=== PATIENT | male | born 1940 | race African-American/Black ===

== ENCOUNTER 2017-02-23 11:02 | Inpatient (IN) | payer MEDICARE ==
[~2017-02-23] VITALS: Ht 180.3 cm; Wt 84.8 kg
[~2017-02-23 11:02] MED LIST: AMLO5TAB2 PO; ASPI81TA50 PO; FLUO20CA8 PO; HYDR-2762 PO; LOSA50TA6 PO; METF500T4 PO; MULT-658 PO; OMEG1CAP28 PO; SIMV10TA3 PO; TAMS0.4C2 PO
--- NOTE | 2017-02-23 12:48 | RAD ---
Examination: Frontal view the chest History: shortness of breath. Comparison: 10/15/2005 Findings: The cardiomediastinal silhouette grossly appears unremarkable. Irregular airspace opacity identified in the left hilar region could be mass or scarring. Old right fifth rib resection again similar to prior exam. Impression: 1. Irregular airspace opacity identified in the left hilar region could be mass or scarring.
--- NOTE | 2017-02-23 12:58 | EKG ---
[facility] [address] [place] [address] Test Date: 2017-02-23 Test Time: 12:22:50 Pat Name: KELLY KEARNEY Department: Room: Gender: M Lumber Straightened: : 1940 Requested By: EPI SOTELO Order Number: [id number] Reading MD: Demar Kaur Measurements Intervals [place] Rate: 92 P: -27 TN: 66 QRS: 147 QRSD: 100 T: 150 QT: 402 QTc: 503 Interpretive Statements SINUS RHYTHM LOW LIMB LEAD VOLTAGE CONSIDER RIGHT VENTRICULAR HYPERTROPHY QRS(T) CONTOUR ABNORMALITY CONSIDER INFERIOR MYOCARDIAL DAMAGE T ABNORMALITY IN ANTERIOR LEADS PROLONGED QT RI6.01 Unconfirmed report No previous ECG available for comparison Electronically Signed On 03-06-2017 12:16:39 CDT by Demar Kaur
[2017-02-23 12:59] LABS: BASO % 0 % (0-3); EOS % 0 % (0-3); HEMATOCRIT 34.2 % (39.0-53.0); HEMOGLOBIN 11.1 g/dL (13.0-17.5); LYMPH # 0.3 x10^3/uL (1.0-4.8); LYMPH % 3 % (24-48); MEAN CORPUSCULAR HEMOGLOBIN 26 pg (25-35); MEAN CORPUSCULAR HGB CONC 33 g/dL (31-37); MEAN CORPUSCULAR VOLUME 81 fL (79-100); MONO % 3 % (0-9); NEUT % 94 % (31-73); PLATELET COUNT 206 x10^3/uL (140-400); RED BLOOD COUNT 4.23 x10^6/uL (4.30-5.70); RED CELL DISTRIBUTION WIDTH 17.7 % (11.5-14.5); WHITE BLOOD COUNT 8.1 x10^3/uL (4.0-11.0)
--- NOTE | 2017-02-23 13:04 | RAD ---
CT head without contrast History: Altered mental status. Comparison: 12/19/2011. Procedure: Axial images are obtained of the head from the skull base through the vertex without IV contrast. Findings: Moderate bilateral periventricular white matter hypodensities likely chronic small vessel ischemic disease. There is a calcified density identified in the right frontotemporal region grossly similar to prior exam measuring 1.8 cm likely a meningioma. The ventricles and sulci are normal for the patient's age. No midline shift, hemorrhage or obvious acute infarction is identified. Basilar cisterns are patent. . The visualized paranasal sinuses appear clear. Impression: 1. No acute intracranial process. 2. Unchanged calcified density in the right frontoparietal region likely known meningioma. PQRS Compliance Statement: One or more of the following individualized dose reduction techniques were utilized for this examination: 1. Automated exposure control 2. Adjustment of the mA and/or kV according to patient size 3. Use of iterative reconstruction technique
[2017-02-23 13:08] LABS: CALCIUM 8.5 mg/dL (8.5-10.1); CREATININE 1.1 mg/dL (0.7-1.3); GFR 78.5; POTASSIUM 4.3 mmol/L (3.5-5.1)
[2017-02-23 13:14] LABS: ALBUMIN 2.6 g/dL (3.4-5.0); ALBUMIN/GLOBULIN RATIO 0.7 (1.0-1.7); TOTAL BILIRUBIN 0.8 mg/dL (0.2-1.0); TOTAL PROTEIN 6.3 g/dL (6.4-8.2)
[2017-02-23 13:30] LABS: HCO3 ABG 20 mmol/L (21-28); PCO2 ABG 29 mmHg (35-46); PH ABG 7.46 (7.35-7.45); SAT O2 ABG 84 % (92-99)
[2017-02-23 13:30] LABS: % EOS 1 % (0-5)
[2017-02-23 13:31] LABS: ANISOCYTOSIS SLIGHT; PLT ESTIMATE ADEQUATE (ADEQUATE); POIKILOCYTOSIS SLIGHT
[2017-02-23 13:32] LABS: BURR CELLS FEW; SCHISTOCYTES FEW
[2017-02-23 13:36] LABS: FIO2 ABG 21; PO2 ABG 49 mmHg (65-108)
[2017-02-23] MEDS ORDERED: IPRATRPIUM/ALBUTEROL 0.5/2.5MG 3 ML NEBU. NEB ONE (15:15)
--- NOTE | 2017-02-23 15:29 | PHYS DOC ---
Past Medical History Past Medical History: Cancer, Depression, Diabetes-Type II, GERD, High Cholesterol, Hypertension, Kidney Infection, Other Additional Past Medical Histor: LUNG & BRAIN CANCER TREATED W/ RADIATION & CHEMO Past Surgical History: Other Additional Past Surgical Histo: RIGHT RIB REMOVED Alcohol Use: None Drug Use: None Adult General Chief Complaint Chief Complaint: SHORTNESS OF BREATH HPI HPI Patient is a 76 year old AA male has known patient with lung cancer and brain metastatic disease, hypertension, adult-onset diabetes who presents with progressive shortness of breath over the past 2 days. Patient denies cough, fever, chills, nausea vomiting and sweats. Denies chest pain, recent leg pain or swelling. Reports orthopnea and paroxysmal nocturnal dyspnea. Patient does not require home oxygen. No other acute symptoms or complaints. Denies history of CAD or congestive heart failure. Review of Systems Review of Systems Review symptoms as per history of present illness. All other review symptoms are negative. Current Medications Current Medications Current Medications Medications (Trade) Dose Ordered Sig/Fanny Start Time Stop Time Status Last Admin Dose Admin Albuterol/ Ipratropium (Duoneb) 3 ml 1X ONCE 02/23/17 15:15 02/23/17 15:16 DC 02/23/17 15:58 3 ML Allergies Allergies Allergies Coded Allergies Type Severity Reaction Last Updated Verified codeine Allergy Intermediate RASH, ITCH 05/10/15 Yes Physical Exam Physical Exam Constitutional: Well developed, well nourished, tachypnea, conversational dyspnea.. [] HENT: Normocephalic, atraumatic, bilateral external ears normal, oropharynx moist, edentulous, nose normal. [] Eyes: PERRLA, EOMI, conjunctiva normal. [] Neck: Normal range of motion. [] Cardiovascular:Heart rate regular rhythm, no murmur. [] Lungs & Thorax: Diminished breath sounds bilaterally, rales in bases.[] Abdomen: Bowel sounds normal, soft, no tenderness, no masses, no pulsatile masses. [] Skin: Warm, dry, no erythema, no rash. [] Back: No tenderness, no CVA tenderness. [] Extremities: No tenderness, no cyanosis, no clubbing, ROM intact, no edema. [] Neurologic: Alert and oriented, slurring of speech, cranial nerves otherwise intact, normal motor function, normal sensory function, no focal deficits noted. [] Psychologic: Affect flat. [] Current Patient Data Vital Signs Vital Signs Date Time Temp Pulse Resp B/P (MAP) Pulse Ox O2 Delivery O2 Flow Rate FiO2 02/23/17 13:30 Nasal Cannula 2.0 02/23/17 13:16 91 02/23/17 12:45 93 24 121/76 (91) 02/23/17 11:05 97.7 97.7 Lab Values Laboratory Tests Test 02/23/17 12:45 02/23/17 13:16 White Blood Count 8.1 x10^3/uL (4.0-11.0) Red Blood Count 4.23 x10^6/uL (4.30-5.70) L Hemoglobin 11.1 g/dL (13.0-17.5) L Hematocrit 34.2 % (39.0-53.0) L Mean Corpuscular Volume 81 fL (79-100) Mean Corpuscular Hemoglobin 26 pg (25-35) Mean Corpuscular Hemoglobin Concent 33 g/dL (31-37) Red Cell Distribution Width 17.7 % (11.5-14.5) H Platelet Count 206 x10^3/uL (140-400) Neutrophils (%) (Auto) 94 % (31-73) H Lymphocytes (%) (Auto) 3 % (24-48) L Monocytes (%) (Auto) 3 % (0-9) Eosinophils (%) (Auto) 0 % (0-3) Basophils (%) (Auto) 0 % (0-3) Neutrophils # (Auto) 7.5 x10^3uL (1.8-7.7) Lymphocytes # (Auto) 0.3 x10^3/uL (1.0-4.8) L Monocytes # (Auto) 0.2 x10^3/uL (0.0-1.1) Eosinophils # (Auto) 0.0 x10^3/uL (0.0-0.7) Basophils # (Auto) 0.0 x10^3/uL (0.0-0.2) Segmented Neutrophils % 81 % (35-66) H Band Neutrophils % 8 % (0-9) Lymphocytes % 7 % (24-48) L Monocytes % 3 % (0-10) Eosinophils % 1 % (0-5) Platelet Estimate Adequate (ADEQUATE) Poikilocytosis Slight Anisocytosis Slight [place] Cells Few Schistocytes Few Sodium Level 137 mmol/L (136-145) Potassium Level 4.3 mmol/L (3.5-5.1) Chloride Level 102 mmol/L (98-107) Carbon Dioxide Level 20 mmol/L (21-32) L Anion Gap 15 (6-14) H Blood Urea Nitrogen 22 mg/dL (8-26) Creatinine 1.1 mg/dL (0.7-1.3) Estimated GFR (Cockcroft-Gault) 78.5 BUN/Creatinine Ratio 20 (6-20) Glucose Level 112 mg/dL (70-99) H Calcium Level 8.5 mg/dL (8.5-10.1) Total Bilirubin 0.8 mg/dL (0.2-1.0) Aspartate Amino Transferase (AST) 19 U/L (15-37) Alanine Aminotransferase (ALT) 24 U/L (16-63) Alkaline Phosphatase 91 U/L (46-116) Creatine Kinase 102 U/L (39-308) Troponin I Quantitative 0.371 ng/mL (0.000-0.055) KC-Sij-K-Type Natriuretic Peptide 7976 pg/mL (0-449) H Total Protein 6.3 g/dL (6.4-8.2) L Albumin 2.6 g/dL (3.4-5.0) L Albumin/Globulin Ratio 0.7 (1.0-1.7) L O2 Saturation 84 % (92-99) L Arterial Blood pH 7.46 (7.35-7.45) H Arterial Blood pCO2 at Patient Temp 29 mmHg (35-46) L Arterial Blood pO2 at Patient Temp 49 mmHg (65-108) *L Arterial Blood HCO3 20 mmol/L (21-28) L Arterial Blood Base Excess -2 mmol/L (-3-3) FiO2 21 Laboratory Tests 02/23/17 12:45 Laboratory Tests 02/23/17 12:45 EKG EKG [EKG: Sinus rhythm, rate 92, ST changes T-wave inversions in in anterior leads. No definitive ST segment elevation changes. Right ventricular hypertrophy, Limited interpretation due to EKG quality last poor patient cooperation.] Radiology/Procedures Radiology/Procedures [Chest x-ray left lung mass, increased interstitial lung markings.] Course & Med Decision Making Course & Med Decision Making Pertinent Labs and Imaging studies reviewed. (See chart for details) [Patient short of breath with evidence of hypoxia, secondary to fluid overload. Patient with EKG changes, T-wave inversions in anterior leads and positive troponin. Patient denies chest pain. BNP significantly elevated. O2, Breathing treatment, NTG drip and ASA given. Patient placed on BiPAP. Dr. Ibrahim to admit ,. Case reviewed with Dr. Valderrama ] Dragon Disclaimer Dragon Disclaimer This electronic medical record was generated, in whole or in part, using a voice recognition dictation system. Departure Departure Impression: Primary Impression: CHF (congestive heart failure) Additional Impression: Non-STEMI (non-ST elevated myocardial infarction) Disposition: 09 ADMITTED INPATIENT Admitting Physician: Lance Ibrahim Condition: STABLE Referrals: LANCE IBRAHIM MD (PCP) Problem Qualifiers ASHLEIGHEPI JACOBSON Feb 23, 2017 15:29
[2017-02-23] MEDS ORDERED: ONDANSETRON PF 4 MG/2 ML VIAL. IV PRN ×2 (15:45→17:15)
[2017-02-23] MEDS ORDERED: NITROGLYCERIN PREMIX 250 ML IV ONE (17:00)
[2017-02-23] MEDS ORDERED: ASPIRIN CHEWABLE 81 MG TABLET. PO ONE (17:00)
[2017-02-23] MEDS: FUROSEMIDE 40 MG/4 ML VIAL. IVP ONE ×2 (17:40→17:52)
[2017-02-23] MEDS ORDERED: IV NORMAL SALINE 1000ML BAG 1,000 ML IV SCH (18:00)
[2017-02-23 18:48] VITALS: BP 112/70
[2017-02-23 19:00] VITALS: BP 111/57
[2017-02-23] MEDS ORDERED: ONDA4TAB7 PO (20:48)
[2017-02-23] MEDS ORDERED: FLUO20CA16 PO (20:48)
[2017-02-23] MEDS ORDERED: FAMO20TA5 PO (20:48)
[2017-02-23] MEDS ORDERED: METF500T4 PO (20:48)
[2017-02-23] MEDS ORDERED: DEXA4TAB PO (20:48)
[2017-02-23] MEDS ORDERED: LEVE500T56 PO (20:48)
[2017-02-23] MEDS ORDERED: DEXTROSE 50% 25 GM / 50ML DISP.SYRIN. IV PRN (21:15)
[2017-02-23] MEDS ORDERED: HYDROcodone/APAP 7.5/325MG 1 TAB TABLET PO PRN (21:15)
[2017-02-23] MEDS: FAMOTIDINE 20 MG TABLET. PO SCH (22:10)
[2017-02-23] MEDS: levETIRAcetam 500 MG TABLET PO SCH (22:10)
[2017-02-23 23:00] VITALS: BP 102/61
[2017-02-24 03:00] VITALS: BP 96/56
[2017-02-24 04:53] LABS: BASO % 0 % (0-3); EOS % 0 % (0-3); HEMATOCRIT 32.6 % (39.0-53.0); HEMOGLOBIN 10.6 g/dL (13.0-17.5); LYMPH # 0.8 x10^3/uL (1.0-4.8); LYMPH % 10 % (24-48); MEAN CORPUSCULAR HEMOGLOBIN 26 pg (25-35); MEAN CORPUSCULAR HGB CONC 32 g/dL (31-37); MEAN CORPUSCULAR VOLUME 81 fL (79-100); MONO % 6 % (0-9); NEUT % 84 % (31-73); PLATELET COUNT 225 x10^3/uL (140-400); WHITE BLOOD COUNT 7.8 x10^3/uL (4.0-11.0)
[2017-02-24 05:12] LABS: ALBUMIN 2.3 g/dL (3.4-5.0); ALBUMIN/GLOBULIN RATIO 0.5 (1.0-1.7); CALCIUM 8.9 mg/dL (8.5-10.1); CREATININE 1.6 mg/dL (0.7-1.3); POTASSIUM 4.6 mmol/L (3.5-5.1); TOTAL BILIRUBIN 0.5 mg/dL (0.2-1.0); TOTAL PROTEIN 6.8 g/dL (6.4-8.2)
[2017-02-24 05:14] LABS: MAGNESIUM 2.3 mg/dL (1.8-2.4)
[2017-02-24 05:15] LABS: CHOLESTEROL/HDL RATIO 2.4
[2017-02-24 07:00] VITALS: BP 102/63
[2017-02-24] MEDS: FUROSEMIDE 40 MG/4 ML VIAL. IVP SCH ×2 (09:00→13:12)
[2017-02-24 11:00] VITALS: BP 130/76
--- NOTE | 2017-02-24 12:45 | PDOC2 ---
GHISLAINE CASTILLO HAND TUBE BENDER 02/24/17 1245: CARDIAC CONSULT DATE OF CONSULT Date of Consult DATE: 02/24/17 TIME: 12:36 REASON FOR CONSULT Reason for Consult: CHF NSTEMI REFERRING PHYSICIAN Referring Physician: Dr. De La Vega SOURCE Source: Chart review, Patient HISTORY OF PRESENT ILLNESS HISTORY OF PRESENT ILLNESS This is a 76 yo male, with a h/o of lung CA with metastasis to the brain, who presented from [facility] with complaints of shortness of breath. Patient unable to provide details of admission. Per chart review, patient has had progressive SOA over the last couple of days. Denies any chest pain, palpitations, dizziness, diaphoresis, nausea/vomiting, or LE edema. Presently denies any difficulty breathing or orthopnea. No previous history of CAD or known prior cardiac workup. PAST MEDICAL HISTORY Cardiovascular: HTN Pulmonary: Other (lung CA with metastasis to brain ) GI: GERD Heme/Onc: No pertinent hx Hepatobiliary: No pertinent hx Psych: Depression Musculoskeletal: low back pain, Osteoarthritis Rheumatologic: No pertinent hx Infectious disease: No pertinent hx ENT: No pertinent hx Renal/: Chronic renal failure (on HD), Benign prostatic enlarg. Endocrine: Diabetes Dermatology: No pertinent hx PAST SURGICAL HISTORY Past Surgical History: Other (right shoulder surgery) FAMILY HISTORY Family History: Hypertension SOCIAL HISTORY Smoke: Quit (2004) ALCOHOL: none Drugs: None [place]: [place] CURRENT MEDICATIONS CURRENT MEDICATIONS Current Medications Medications (Trade) Dose Ordered Sig/Fanny Route PRN Reason Start Time Stop Time Status Last Admin Dose Admin Albuterol/ Ipratropium (Duoneb) 3 ml 1X ONCE NEB 02/23/17 15:15 02/23/17 15:16 DC 02/23/17 15:58 Furosemide (Lasix) 40 mg 1X ONCE IVP 02/23/17 17:00 02/23/17 17:01 DC 02/23/17 17:52 Aspirin (Children'S Aspirin) 324 mg 1X ONCE PO 02/23/17 17:00 02/23/17 17:01 DC 02/23/17 17:41 Famotidine (Pepcid) 20 mg BID PO 02/23/17 22:00 02/23/17 22:10 Levetiracetam (Keppra) 750 mg BID PO 02/23/17 21:00 02/23/17 22:10 ALLERGIES ALLERGIES: Coded Allergies: codeine (Verified Allergy, Intermediate, RASH, ITCH, 05/10/15) ROS Review of System 14 point ROS conducted with pertinent positives noted above in HPI. PHYSICAL EXAM General: Alert, Oriented X3, Cooperative, No acute distress HEENT: Atraumatic, Mucous membr. moist/pink Lungs: Other (diminished bases ) Heart: Regular rate, Normal S1, Normal S2, Other (2/6 systolic murmur ) Abdomen: Soft, No tenderness Extremities: No edema, Normal pulses Skin: No breakdown, No significant lesion Neuro: Normal speech, Sensation intact Psych/Mental Status: Mood NL, Other (alert to person and place ) MUSCULOSKELETAL: Osteoarthritic changes both hands VITALS VITALS Vital Signs Date Time Temp Pulse Resp B/P (MAP) Pulse Ox O2 Delivery O2 Flow Rate FiO2 02/24/17 11:00 94.0 78 18 130/76 (94) 94 Room Air 94.0 02/24/17 07:00 2.0 LABS Lab: Laboratory Tests Test 02/23/17 12:45 02/23/17 13:16 02/23/17 15:40 02/23/17 18:46 White Blood Count 8.1 x10^3/uL (4.0-11.0) Red Blood Count 4.23 x10^6/uL (4.30-5.70) Hemoglobin 11.1 g/dL (13.0-17.5) Hematocrit 34.2 % (39.0-53.0) Mean Corpuscular Volume 81 fL (79-100) Mean Corpuscular Hemoglobin 26 pg (25-35) Mean Corpuscular Hemoglobin Concent 33 g/dL (31-37) Red Cell Distribution Width 17.7 % (11.5-14.5) Platelet Count 206 x10^3/uL (140-400) Neutrophils (%) (Auto) 94 % (31-73) Lymphocytes (%) (Auto) 3 % (24-48) Monocytes (%) (Auto) 3 % (0-9) Eosinophils (%) (Auto) 0 % (0-3) Basophils (%) (Auto) 0 % (0-3) Neutrophils # (Auto) 7.5 x10^3uL (1.8-7.7) Lymphocytes # (Auto) 0.3 x10^3/uL (1.0-4.8) Monocytes # (Auto) 0.2 x10^3/uL (0.0-1.1) Eosinophils # (Auto) 0.0 x10^3/uL (0.0-0.7) Basophils # (Auto) 0.0 x10^3/uL (0.0-0.2) Segmented Neutrophils % 81 % (35-66) Band Neutrophils % 8 % (0-9) Lymphocytes % 7 % (24-48) Monocytes % 3 % (0-10) Eosinophils % 1 % (0-5) Platelet Estimate Adequate (ADEQUATE) Poikilocytosis Slight Anisocytosis Slight [place] Cells Few Schistocytes Few Sodium Level 137 mmol/L (136-145) Potassium Level 4.3 mmol/L (3.5-5.1) Chloride Level 102 mmol/L (98-107) Carbon Dioxide Level 20 mmol/L (21-32) Anion Gap 15 (6-14) Blood Urea Nitrogen 22 mg/dL (8-26) Creatinine 1.1 mg/dL (0.7-1.3) Estimated GFR (Cockcroft-Gault) 78.5 BUN/Creatinine Ratio 20 (6-20) Glucose Level 112 mg/dL (70-99) Calcium Level 8.5 mg/dL (8.5-10.1) Total Bilirubin 0.8 mg/dL (0.2-1.0) Aspartate Amino Transf (AST/SGOT) 19 U/L (15-37) Alanine Aminotransferase (ALT/SGPT) 24 U/L (16-63) Alkaline Phosphatase 91 U/L (46-116) Creatine Kinase 102 U/L (39-308) Troponin I Quantitative 0.371 ng/mL (0.000-0.055) 0.265 ng/mL (0.000-0.055) PT-Ocl-P-Type Natriuretic Peptide 7976 pg/mL (0-449) Total Protein 6.3 g/dL (6.4-8.2) Albumin 2.6 g/dL (3.4-5.0) Albumin/Globulin Ratio 0.7 (1.0-1.7) O2 Saturation 84 % (92-99) Arterial Blood pH 7.46 (7.35-7.45) Arterial Blood pCO2 at Patient Temp 29 mmHg (35-46) Arterial Blood pO2 at Patient Temp 49 mmHg (65-108) Arterial Blood HCO3 20 mmol/L (21-28) Arterial Blood Base Excess -2 mmol/L (-3-3) FiO2 21 Glucose (Fingerstick) 178 mg/dL (70-99) Test 02/23/17 21:43 02/23/17 22:11 02/24/17 03:40 02/24/17 08:09 Troponin I Quantitative 0.220 ng/mL (0.000-0.055) Glucose (Fingerstick) 104 mg/dL (70-99) 105 mg/dL (70-99) White Blood Count 7.8 x10^3/uL (4.0-11.0) Red Blood Count 4.00 x10^6/uL (4.30-5.70) Hemoglobin 10.6 g/dL (13.0-17.5) Hematocrit 32.6 % (39.0-53.0) Mean Corpuscular Volume 81 fL (79-100) Mean Corpuscular Hemoglobin 26 pg (25-35) Mean Corpuscular Hemoglobin Concent 32 g/dL (31-37) Red Cell Distribution Width 18.0 % (11.5-14.5) Platelet Count 225 x10^3/uL (140-400) Neutrophils (%) (Auto) 84 % (31-73) Lymphocytes (%) (Auto) 10 % (24-48) Monocytes (%) (Auto) 6 % (0-9) Eosinophils (%) (Auto) 0 % (0-3) Basophils (%) (Auto) 0 % (0-3) Neutrophils # (Auto) 6.5 x10^3uL (1.8-7.7) Lymphocytes # (Auto) 0.8 x10^3/uL (1.0-4.8) Monocytes # (Auto) 0.4 x10^3/uL (0.0-1.1) Eosinophils # (Auto) 0.0 x10^3/uL (0.0-0.7) Basophils # (Auto) 0.0 x10^3/uL (0.0-0.2) Sodium Level 139 mmol/L (136-145) Potassium Level 4.6 mmol/L (3.5-5.1) Chloride Level 103 mmol/L (98-107) Carbon Dioxide Level 25 mmol/L (21-32) Anion Gap 11 (6-14) Blood Urea Nitrogen 31 mg/dL (8-26) Creatinine 1.6 mg/dL (0.7-1.3) Estimated GFR (Cockcroft-Gault) 51.0 BUN/Creatinine Ratio 19 (6-20) Glucose Level 111 mg/dL (70-99) Calcium Level 8.9 mg/dL (8.5-10.1) Magnesium Level 2.3 mg/dL (1.8-2.4) Total Bilirubin 0.5 mg/dL (0.2-1.0) Aspartate Amino Transf (AST/SGOT) 12 U/L (15-37) Alanine Aminotransferase (ALT/SGPT) 20 U/L (16-63) Alkaline Phosphatase 80 U/L (46-116) Total Protein 6.8 g/dL (6.4-8.2) Albumin 2.3 g/dL (3.4-5.0) Albumin/Globulin Ratio 0.5 (1.0-1.7) Triglycerides Level 61 mg/dL (0-150) Cholesterol Level 251 mg/dL (0-200) LDL Cholesterol, Calculated 133 mg/dL (0-100) VLDL Cholesterol, Calculated 12 mg/dL (0-40) Non-HDL Cholesterol Calculated 145 mg/dL (0-129) HDL Cholesterol 106 mg/dL (40-60) Cholesterol/HDL Ratio 2.4 Test 02/24/17 11:21 Glucose (Fingerstick) 90 mg/dL (70-99) ASSESSMENT/PLAN ASSESSMENT/PLAN 1. Mild acute on chronic heart failure; NT Pro BNP elevated. CXR without significant vascular congestion. Better compensated with IV Lasix. Cr now 1.6. Hold further aggressive diuresis at this time. Obtain echo to assess LV function. 2. NSTEMI; peak 0.371. Possibly type II demand ischemia secondary to hypoxia. Will obtain echo to evaluate presence of WMA. Further recommendations pending diagnostics. Could consider further ischemic workup depending upon status of metastatic lung CA 3. Hypertension; presently low-normotensive 4. Hyperlipidemia; add statin 5. Diabetes; as per IM 6. DARLEEN with CKD; monitor renal function following diuresis 7. Lung CA with mets to brain. 8. Hypothermia; Ryan hugger in place Problems: FRANCISCO J PATRICIO MD 02/24/17 1751: CARDIAC CONSULT ALLERGIES ALLERGIES: Coded Allergies: codeine (Verified Allergy, Intermediate, RASH, ITCH, 05/10/15) ASSESSMENT/PLAN ASSESSMENT/PLAN Patient seen and examined. Agree with CLINICAL DIETITIAN's assessment and plan. Acute on chronic diastolic heart failure better compensated. 2-D echo showed normal LV systolic function. Slight troponin elevation probably secondary to demand ischemia. Echo did not show any wall motion abnormalities. Plan for outpatient ischemic evaluation in the form of stress test. Thank you for the consultation. Problems: GHISLAINE CASTILLO APRN Feb 24, 2017 12:45 FRANCISCO J PATRICIO MD Feb 24, 2017 17:51
[2017-02-24] MEDS: DEXAMETHASONE 4 MG TABLET PO SCH (12:51)
[2017-02-24] MEDS: levETIRAcetam 500 MG TABLET PO SCH ×2 (12:51→21:23)
[2017-02-24] MEDS: FAMOTIDINE 20 MG TABLET. PO SCH ×2 (12:51→21:23)
[2017-02-24] MEDS: FLUoxetine HCL 20 MG CAPSULE PO SCH (12:52)
[2017-02-24] MEDS: metFORMIN 500 MG TABLET PO SCH ×3 (12:52→17:55)
[2017-02-24] MEDS: TAMSULOSIN 0.4 MG CAP.ER.24H. PO SCH (12:52)
[2017-02-24 16:00] VITALS: BP 99/66
--- NOTE | 2017-02-24 16:40 | CARD ---
APPROVED REPORT EXAM: Two-dimensional and M-mode echocardiogram with Doppler and color Doppler. Other Information Quality : GoodHR: 89bpm Rhythm : NSR INDICATION Congestive Heart Failure Non STEMI 2D DIMENSIONS RVDd3.7 (2.9-3.5cm)Left Atrium(2D)1.6 (1.6-4.0cm) IVSd1.2 (0.7-1.1cm)Aortic Root(2D)6.9 (2.0-3.7cm) LVDd4.5 (3.9-5.9cm)LVOT Diameter2.4 (1.8-2.4cm) PWd1.2 (0.7-1.1cm)LVDs3.2 (2.5-4.0cm) FS (%) 28.4 %SV49.8 ml LVEF(%)55.0 (>50%) Aortic Valve AoV Peak Lit.112.1cm/sAoV VTI17.2cm AO Peak GR.5.0mmHgLVOT VTI 15.37cm AO Mean GR.3mmHg Mitral Valve MV E Kbizbiwr60.4cm/sMV E Peak Gr.3mmHg MV DECEL [id number] A Mggtader40.4cm/s MV E Mean Gr.1mmHgE/A Ratio0.6 MV A Wfdmpseo32hr TDI Lateral E' P. V8.17cm/sMedial E' P. V6.44cm/s E/Lateral E'6.9E/Medial E'8.8 Tricuspid Valve TR P. Epgrbyen189st/sRAP [id number] TR Peak Gr.37mmHg Pulmonary Vein S1 Gvzitdpo16.7cm/sS2 Fubxmtny91.94cm/s D2 Jekbpnuo75.9cm/sPVa [id number] LEFT VENTRICLE The left ventricle is normal size. There is mild concentric left ventricular hypertrophy. The left ve ntricular systolic function is normal and the ejection fraction is within normal range. The Ejection Fraction is 55-60%. Transmitral Doppler flow pattern is Grade I-abnormal relaxation pattern. RIGHT VENTRICLE The right ventricle is normal size. There is normal right ventricular wall thickness. The right ventr icular systolic function is normal. ATRIA The left atrium size is normal. The right atrium size is normal. The interatrial septum is intact wit h no evidence for an atrial septal defect or patent foramen ovale as noted on 2-D or Doppler imaging. AORTIC VALVE The aortic valve is mildly sclerotic. The aortic valve is trileaflet. Doppler and Color Flow revealed no significant aortic regurgitation. There is no significant aortic valvular stenosis. MITRAL VALVE Mitral annular calcification is mild. The mitral valve leaflets are thickened. There is no evidence o f mitral valve prolapse. There is no mitral valve stenosis. Doppler and Color Flow revealed no mitral valve regurgitation noted. TRICUSPID VALVE Doppler and Color Flow revealed trace to mild tricuspid regurgitation. The pulmonary artery systolic pressure is estimated at 40 mmHg. There is mild pulmonary hypertension. PULMONIC VALVE The pulmonic valve is not well visualized but appears to open adequately. Doppler and Color Flow reve aled no pulmonic valvular regurgitation. There is no pulmonic valvular stenosis by spectral Doppler. GREAT VESSELS The aortic root is normal in size. The ascending aorta is normal in size. The pulmonary artery is nor mal. The IVC is normal in size and collapses >50% with inspiration. PERICARDIAL EFFUSION There is no evidence of significant pericardial effusion. Critical Notification Critical Value: No <Conclusion> The left ventricle is normal size. The left ventricular systolic function is normal and the ejection fraction is within normal range. The Ejection Fraction is 55-60%. There is mild concentric left ventricular hypertrophy. Doppler and Color Flow revealed no significant aortic regurgitation. There is no significant aortic valvular stenosis. Doppler and Color Flow revealed no mitral valve regurgitation noted. Doppler and Color Flow revealed trace to mild tricuspid regurgitation. The pulmonary artery systolic pressure is estimated at 40 mmHg. There is mild pulmonary hypertension.
--- NOTE | 2017-02-24 17:54 | PDOC ---
Provider Note Provider Note Pt seen.H&P dictated. #[id number] HUMERA MALIK MD Feb 24, 2017 17:54
[2017-02-24] MEDS ORDERED: DEXTROSE 50% 25 GM / 50ML DISP.SYRIN. IV PRN (18:00)
--- NOTE | 2017-02-24 18:20 | HP ---
ADMIT DATE: 02/23/2017 PATIENT LOCATION: 262. REASON FOR ADMISSION TO THE HOSPITAL: Shortness of breath. The patient has a known history of lung cancer with metastasis to the brain. HISTORY OF PRESENT ILLNESS: The patient is a 76-year-old male patient, known to me in the past, has been to [facility] for treatment, was found to have a lung cancer, had metastasis to the brain 2-3 years ago, had radiation and chemo, and has been doing relatively well, last seen was 6 months ago. He was complaining of shortness of breath and was brought to the hospital. Troponin was slightly elevated, was admitted to the hospital. The patient has no known history of coronary artery disease in the past. PAST MEDICAL HISTORY: History of hypertension, lung CA with metastasis to the brain, hyperlipidemia and diabetes. PAST SURGICAL HISTORY: Right shoulder surgery, had bronchoscopy and lung biopsy, radiation and chemo. FAMILY HISTORY: Positive for hypertension. SOCIAL HISTORY: Denies alcohol. Quit smoking in 2004, smoked for 30 years. Has been in the shelter at [place] recently. MEDICATIONS: He is on Lasix 40 mg, aspirin 325, Pepcid 20, Keppra 750 mg twice a day. ALLERGIES: CODEINE CAUSING RASH AND ITCH. REVIEW OF SYSTEMS: The patient denies any shortness of breath or chest pain now, was short of breath yesterday. PHYSICAL EXAMINATION: GENERAL: He is kind of confused, oriented to person and place. The patient is not in any distress. HEENT: Head is atraumatic. Pupils equal. Oral cavity: No congestion. NECK: Supple. Thyroid not enlarged. CHEST: Symmetrical. CARDIOVASCULAR: S1, S2. LUNGS: Diminished breath sounds. Occasional wheezing. ABDOMEN: Soft, bowel sounds present, no mass palpable. EXTERNAL GENITALIA: No Regan. RECTAL: Deferred. EXTREMITIES: No calf tenderness, no edema. Pulses 1+. NEUROLOGIC: The patient is moving all extremities. Alert to person and place. LABORATORY DATA: Shows white count of 8, hemoglobin 11, platelets 206. Electrolytes show sodium 137, potassium 4.3, chloride 102, bicarbonate 20, BUN 22, creatinine 1.1, glucose 112. LFTs were normal. BNP is almost 8000. Troponin was 0.3, slightly elevated. Blood gas shows pH 7.46, pCO2 of 29, pO2 of 49, bicarbonate 20 and 84% on room air. Blood cultures negative. CT head shows unchanged calcified densities right frontoparietal region, meningioma. Chest x-ray shows scarring, irregular density in the left hilar region, known history of lung cancer. FINAL IMPRESSION: 1. Shortness of breath improving. 2. Elevated brain natriuretic peptide and troponin, possible congestive heart failure ?Diastolic. 3. History of lung cancer, had metastasis to the brain, had radiation and chemo 3 years ago. 4. History of smoking, chronic obstructive pulmonary disease. 5. Diabetes. 6. Hypertension. 7. General debility, has been in a shelter lately. 8. Dementia multi factorial PLAN: At this time, admit to hospital. Cardiology is consulted. Echocardiogram and deep venous thrombosis prophylaxis. We will also do venous Doppler, urine check for infection , deep venous thrombosis prevention with lovenox. venous doppler will order. HUMERA MALIK MD DR: JOAN/amador JOB#: [id number] / [id number] EARL
[2017-02-24 18:26] LABS: BILIRUBIN,URINE NEGATIVE (NEG); GLUCOSE,URINE NEGATIVE (NEG); NITRITE,URINE NEGATIVE (NEG); PROTEIN,URINE NEGATIVE (NEG-TRACE); UROBILINOGEN,URINE 0.2 mg/dL (0.2 mg/dL)
[2017-02-24 18:50] LABS: BACTERIA,URINE 0 /HPF (0-FEW); RBC,URINE 0 /HPF (0-2); WBC,URINE 0 /HPF (0-4)
[2017-02-24 19:35] VITALS: BP 123/76
[2017-02-24] MEDS: ATORVASTATIN CALCIUM 20 MG TABLET PO SCH (21:23)
[2017-02-24] MEDS: ENOXAPARIN 40 MG/0.4 ML SYRINGE. SQ SCH (21:24)
[2017-02-24 23:25] VITALS: BP 123/70
[2017-02-25 03:25] VITALS: BP 106/71
[2017-02-25 07:00] VITALS: BP 93/62
[2017-02-25] MEDS: INSULIN ASPART 300 UNITS/3 ML INSULN.PEN SQ SCH ×3 (08:00→17:00)
[2017-02-25] MEDS: metFORMIN 500 MG TABLET PO SCH ×2 (08:00→17:00)
--- NOTE | 2017-02-25 08:28 | RAD ---
EXAM: Bilateral lower extremity Doppler sonogram. HISTORY: Swelling. TECHNIQUE: Grayscale and color Doppler sonographic imaging of the lower extremity veins with spectral waveform analysis was performed. COMPARISON: None. FINDINGS: There is normal color flow, normal compressibility and there are normal spectral waveforms within the lower extremity veins. IMPRESSION: No Doppler evidence of lower extremity venous thrombosis.
[2017-02-25] MEDS: levETIRAcetam 500 MG TABLET PO SCH ×2 (10:00→21:04)
[2017-02-25] MEDS: FLUoxetine HCL 20 MG CAPSULE PO SCH (10:00)
[2017-02-25] MEDS: TAMSULOSIN 0.4 MG CAP.ER.24H. PO SCH (10:01)
[2017-02-25] MEDS: FAMOTIDINE 20 MG TABLET. PO SCH ×2 (10:01→21:04)
[2017-02-25] MEDS: DEXAMETHASONE 4 MG TABLET PO SCH (10:01)
--- NOTE | 2017-02-25 10:15 | PDOC ---
PROGRESS NOTES Subjective Subjective feeling better, does not remember my name Objective Objective Vital Signs Date Time Temp Pulse Resp B/P (MAP) Pulse Ox O2 Delivery O2 Flow Rate FiO2 02/25/17 08:27 Room Air 02/25/17 07:00 97.5 72 18 93/62 (72) 92 97.5 02/24/17 19:54 2.0 Physical Exam Abdomen: Soft, No tenderness Heart: Regular rate, Normal S1, Normal S2, Other (2/6 systolic murmur ) Extremities: No edema, Normal pulses General: Alert, Oriented X3, Cooperative, No acute distress HEENT: Atraumatic, Mucous membr. moist/pink Lungs: Other (diminished bases ) MUSCULOSKELETAL: No swelling, Osteoarthritic changes both hands Neuro: Normal speech, Sensation intact Psych/Mental Status: Mood NL, Other (alert to person and place ) Skin: No breakdown, No significant lesion Diagnosis Problem List Problems Medical Problems: (1) Chronic renal failure Status: Acute (2) Non-STEMI (non-ST elevated myocardial infarction) Status: Acute Assessment Assessment Problems Medical Problems: (1) Chronic renal failure Status: Acute (2) Non-STEMI (non-ST elevated myocardial infarction) Status: Acute FINAL IMPRESSION: 1. Shortness of breath. 2. Elevated brain natriuretic peptide and troponin, possible congestive heart failure diastolic. 3. History of lung cancer, had metastasis to the brain, had radiation and chemo 3 years ago. 4. History of smoking, chronic obstructive pulmonary disease. 5. Diabetes. 6. Hypertension. 7. General debility, has been in a intermediate lately. 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 pt/ot/rehab. d/c back to [place] in 1-2 days At this time, admit to hospital. Cardiology is consulted. Echocardiogram and deep venous thrombosis prophylaxis. We will also do venous Doppler, urine as well as deep venous thrombosis prevention. Problems: Plan Plan of Care Problems Medical Problems: (1) Chronic renal failure Status: Acute (2) Non-STEMI (non-ST elevated myocardial infarction) Status: Acute Comment Review of Relevant I have reviewed the following items tereza (where applicable) has been applied. Labs Laboratory Tests Test 02/24/17 11:21 02/24/17 16:35 02/24/17 17:15 02/24/17 20:52 Glucose (Fingerstick) 90 mg/dL (70-99) 101 mg/dL (70-99) 122 mg/dL (70-99) Urine Collection Type Unknown Urine Color Yellow Urine Clarity Clear Urine pH 5.0 Urine Specific [place] 1.010 Urine Protein Negative mg/dL (NEG-TRACE) Urine Glucose (UA) Negative mg/dL (NEG) Urine Ketones (Stick) Negative mg/dL (NEG) Urine Blood Negative (NEG) Urine Nitrite Negative (NEG) Urine Bilirubin Negative (NEG) Urine Urobilinogen Dipstick 0.2 mg/dL (0.2 mg/dL) Urine Leukocyte Esterase Negative (NEG) Urine RBC 0 /HPF (0-2) Urine WBC 0 /HPF (0-4) Urine Bacteria 0 /HPF (0-FEW) Urine Hyaline Casts Few /HPF Urine Mucus Mod /LPF Test 02/25/17 07:20 Glucose (Fingerstick) 103 mg/dL (70-99) Microbiology 02/23/17 Blood Culture - Preliminary, Resulted NO GROWTH AFTER 1 DAY Medications Current Medications Atorvastatin Calcium (Lipitor) 20 mg QHS PO Last administered on 02/24/17 21: 23; Start 02/24/17 at 21:00 Dextrose (Dextrose 50%-Water Syringe) 12.5 gm PRN Q15MIN PRN IV SEE COMMENTS; Start 02/24/17 at 18:00; Status UNV Enoxaparin Sodium (Lovenox 40mg Syringe) 40 mg Q24H SQ Last administered on 21:24; Start 02/24/17 at 21:00 Insulin Aspart (NovoLOG) 0-7 UNITS TIDWMEALS SQ ; Start 02/25/17 at 08:00 Vitals/I & O Vital Sign - Last 24 Hours 02/24/17 02/24/17 02/24/17 02/24/17 11:00 14:17 16:00 19:35 Temp 94.0 98.3 98.0 98.5 94.0 98.3 98.0 98.5 Pulse 78 87 79 Resp 18 19 20 B/P (MAP) 130/76 (94) 99/66 (77) 123/76 (92) Pulse Ox 94 98 96 O2 Delivery Room Air Room Air Nasal Cannula O2 Flow Rate 2.0 02/24/17 02/24/17 02/25/17 02/25/17 19:54 23:25 03:25 07:00 Temp 97.6 97.8 97.5 97.6 97.8 97.5 Pulse 74 79 72 Resp 18 18 18 B/P (MAP) 123/70 (87) 106/71 (83) 93/62 (72) Pulse Ox 92 92 92 O2 Delivery Nasal Cannula Room Air Room Air Room Air O2 Flow Rate 2.0 02/25/17 08:27 O2 Delivery Room Air HUMERA MALIK MD Feb 25, 2017 10:15
[2017-02-25 11:10] LABS: CALCIUM 8.8 mg/dL (8.5-10.1); CREATININE 1.6 mg/dL (0.7-1.3); POTASSIUM 3.5 mmol/L (3.5-5.1)
[2017-02-25 12:09] VITALS: BP 134/84
[2017-02-25 14:15] VITALS: BP 119/67
[2017-02-25 19:10] VITALS: BP 99/64
[2017-02-25] MEDS: ENOXAPARIN 40 MG/0.4 ML SYRINGE. SQ SCH (21:04)
[2017-02-25] MEDS: ATORVASTATIN CALCIUM 20 MG TABLET PO SCH (21:04)
[2017-02-25 23:41] VITALS: BP 148/70
[2017-02-26 03:42] VITALS: BP 110/64
[2017-02-26 07:10] VITALS: BP 109/64
[2017-02-26 07:15] LABS: CALCIUM 9.1 mg/dL (8.5-10.1); CREATININE 1.3 mg/dL (0.7-1.3); GFR 64.8; POTASSIUM 5.1 mmol/L (3.5-5.1)
[2017-02-26 07:40] LABS: BASO % 0 % (0-3); EOS % 0 % (0-3); HEMATOCRIT 34.8 % (39.0-53.0); HEMOGLOBIN 11.3 g/dL (13.0-17.5); LYMPH % 17 % (24-48); MEAN CORPUSCULAR HEMOGLOBIN 26 pg (25-35); MEAN CORPUSCULAR HGB CONC 32 g/dL (31-37); MEAN CORPUSCULAR VOLUME 81 fL (79-100); MONO % 8 % (0-9); NEUT % 75 % (31-73); PLATELET COUNT 250 x10^3/uL (140-400); RED BLOOD COUNT 4.27 x10^6/uL (4.30-5.70); RED CELL DISTRIBUTION WIDTH 17.6 % (11.5-14.5); WHITE BLOOD COUNT 6.1 x10^3/uL (4.0-11.0)
[2017-02-26] MEDS: INSULIN ASPART 300 UNITS/3 ML INSULN.PEN SQ SCH ×3 (08:00→16:45)
[2017-02-26] MEDS: DEXAMETHASONE 4 MG TABLET PO SCH (08:01)
[2017-02-26] MEDS: levETIRAcetam 500 MG TABLET PO SCH ×2 (08:01→20:35)
[2017-02-26] MEDS: FLUoxetine HCL 20 MG CAPSULE PO SCH (08:02)
[2017-02-26] MEDS: FAMOTIDINE 20 MG TABLET. PO SCH ×2 (08:02→20:35)
[2017-02-26] MEDS: TAMSULOSIN 0.4 MG CAP.ER.24H. PO SCH (08:02)
[2017-02-26] MEDS: metFORMIN 500 MG TABLET PO SCH ×2 (08:02→17:00)
--- NOTE | 2017-02-26 09:08 | PDOC ---
PROGRESS NOTES Subjective Subjective No new complaints. Objective Objective Vital Signs Date Time Temp Pulse Resp B/P (MAP) Pulse Ox O2 Delivery O2 Flow Rate FiO2 02/26/17 08:00 Room Air 02/26/17 07:10 97.5 61 17 109/64 (79) 95 97.5 02/25/17 20:00 2.0 Physical Exam Physical Exam He is alert,comfortable and follows commands well and he is independent with his mobility at roller walker level. Assessment Assessment Problems Medical Problems: (1) Chronic renal failure Status: Acute (2) Non-STEMI (non-ST elevated myocardial infarction) Status: Acute Plan Plan of Care To SNF when medically stable. Comment Review of Relevant I have reviewed the following items tereza (where applicable) has been applied. Labs Laboratory Tests Test 02/24/17 11:21 02/24/17 16:35 02/24/17 17:15 02/24/17 20:52 Glucose (Fingerstick) 90 mg/dL (70-99) 101 mg/dL (70-99) 122 mg/dL (70-99) Urine Collection Type Unknown Urine Color Yellow Urine Clarity Clear Urine pH 5.0 Urine Specific [place] 1.010 Urine Protein Negative mg/dL (NEG-TRACE) Urine Glucose (UA) Negative mg/dL (NEG) Urine Ketones (Stick) Negative mg/dL (NEG) Urine Blood Negative (NEG) Urine Nitrite Negative (NEG) Urine Bilirubin Negative (NEG) Urine Urobilinogen Dipstick 0.2 mg/dL (0.2 mg/dL) Urine Leukocyte Esterase Negative (NEG) Urine RBC 0 /HPF (0-2) Urine WBC 0 /HPF (0-4) Urine Bacteria 0 /HPF (0-FEW) Urine Hyaline Casts Few /HPF Urine Mucus Mod /LPF Test 02/25/17 07:20 02/25/17 10:15 02/25/17 11:16 02/25/17 16:29 Glucose (Fingerstick) 103 mg/dL (70-99) 97 mg/dL (70-99) 120 mg/dL (70-99) Sodium Level 134 mmol/L (136-145) Potassium Level 3.5 mmol/L (3.5-5.1) Chloride Level 100 mmol/L (98-107) Carbon Dioxide Level 26 mmol/L (21-32) Anion Gap 8 (6-14) Blood Urea Nitrogen 35 mg/dL (8-26) Creatinine 1.6 mg/dL (0.7-1.3) Estimated GFR (Cockcroft-Gault) 51.0 Glucose Level 105 mg/dL (70-99) Calcium Level 8.8 mg/dL (8.5-10.1) Test 02/25/17 21:24 02/26/17 05:10 02/26/17 07:19 02/26/17 08:00 Glucose (Fingerstick) 86 mg/dL (70-99) 59 mg/dL (70-99) 81 mg/dL (70-99) White Blood Count 6.1 x10^3/uL (4.0-11.0) Red Blood Count 4.27 x10^6/uL (4.30-5.70) Hemoglobin 11.3 g/dL (13.0-17.5) Hematocrit 34.8 % (39.0-53.0) Mean Corpuscular Volume 81 fL (79-100) Mean Corpuscular Hemoglobin 26 pg (25-35) Mean Corpuscular Hemoglobin Concent 32 g/dL (31-37) Red Cell Distribution Width 17.6 % (11.5-14.5) Platelet Count 250 x10^3/uL (140-400) Neutrophils (%) (Auto) 75 % (31-73) Lymphocytes (%) (Auto) 17 % (24-48) Monocytes (%) (Auto) 8 % (0-9) Eosinophils (%) (Auto) 0 % (0-3) Basophils (%) (Auto) 0 % (0-3) Neutrophils # (Auto) 4.6 x10^3uL (1.8-7.7) Lymphocytes # (Auto) 1.0 x10^3/uL (1.0-4.8) Monocytes # (Auto) 0.5 x10^3/uL (0.0-1.1) Eosinophils # (Auto) 0.0 x10^3/uL (0.0-0.7) Basophils # (Auto) 0.0 x10^3/uL (0.0-0.2) Sodium Level 137 mmol/L (136-145) Potassium Level 5.1 mmol/L (3.5-5.1) Chloride Level 104 mmol/L (98-107) Carbon Dioxide Level 24 mmol/L (21-32) Anion Gap 9 (6-14) Blood Urea Nitrogen 35 mg/dL (8-26) Creatinine 1.3 mg/dL (0.7-1.3) Estimated GFR (Cockcroft-Gault) 64.8 Glucose Level 79 mg/dL (70-99) Calcium Level 9.1 mg/dL (8.5-10.1) Laboratory Tests Test 02/25/17 10:15 02/25/17 11:16 02/25/17 16:29 02/25/17 21:24 Sodium Level 134 mmol/L (136-145) Potassium Level 3.5 mmol/L (3.5-5.1) Chloride Level 100 mmol/L (98-107) Carbon Dioxide Level 26 mmol/L (21-32) Anion Gap 8 (6-14) Blood Urea Nitrogen 35 mg/dL (8-26) Creatinine 1.6 mg/dL (0.7-1.3) Estimated GFR (Cockcroft-Gault) 51.0 Glucose Level 105 mg/dL (70-99) Calcium Level 8.8 mg/dL (8.5-10.1) Glucose (Fingerstick) 97 mg/dL (70-99) 120 mg/dL (70-99) 86 mg/dL (70-99) Test 02/26/17 05:10 02/26/17 07:19 02/26/17 08:00 White Blood Count 6.1 x10^3/uL (4.0-11.0) Red Blood Count 4.27 x10^6/uL (4.30-5.70) Hemoglobin 11.3 g/dL (13.0-17.5) Hematocrit 34.8 % (39.0-53.0) Mean Corpuscular Volume 81 fL (79-100) Mean Corpuscular Hemoglobin 26 pg (25-35) Mean Corpuscular Hemoglobin Concent 32 g/dL (31-37) Red Cell Distribution Width 17.6 % (11.5-14.5) Platelet Count 250 x10^3/uL (140-400) Neutrophils (%) (Auto) 75 % (31-73) Lymphocytes (%) (Auto) 17 % (24-48) Monocytes (%) (Auto) 8 % (0-9) Eosinophils (%) (Auto) 0 % (0-3) Basophils (%) (Auto) 0 % (0-3) Neutrophils # (Auto) 4.6 x10^3uL (1.8-7.7) Lymphocytes # (Auto) 1.0 x10^3/uL (1.0-4.8) Monocytes # (Auto) 0.5 x10^3/uL (0.0-1.1) Eosinophils # (Auto) 0.0 x10^3/uL (0.0-0.7) Basophils # (Auto) 0.0 x10^3/uL (0.0-0.2) Sodium Level 137 mmol/L (136-145) Potassium Level 5.1 mmol/L (3.5-5.1) Chloride Level 104 mmol/L (98-107) Carbon Dioxide Level 24 mmol/L (21-32) Anion Gap 9 (6-14) Blood Urea Nitrogen 35 mg/dL (8-26) Creatinine 1.3 mg/dL (0.7-1.3) Estimated GFR (Cockcroft-Gault) 64.8 Glucose Level 79 mg/dL (70-99) Calcium Level 9.1 mg/dL (8.5-10.1) Glucose (Fingerstick) 59 mg/dL (70-99) 81 mg/dL (70-99) Microbiology 02/23/17 Blood Culture - Preliminary, Resulted NO GROWTH AFTER 2 DAYS Medications Current Medications Albuterol/ Ipratropium (Duoneb) 3 ml 1X ONCE NEB Last administered on 15:58; Start 02/23/17 at 15:15; Stop 02/23/17 at 15:16; Status DC Ondansetron HCl (Zofran) 4 mg PRN Q8HRS PRN IV NAUSEA/VOMITING; Start 02/23/17 at 15:45; Stop 02/24/17 at 15:44; Status DC Furosemide (Lasix) 40 mg 1X ONCE IVP Last administered on 02/23/17 17:52; Start 02/23/17 at 17:00; Stop 02/24/17 at 14:14; Status DC Aspirin (Children'S Aspirin) 324 mg 1X ONCE PO Last administered on 02/23/17 17:41; Start 02/23/17 at 17:00; Stop 02/23/17 at 17:01; Status DC Nitroglycerin/ Dextrose 250 ml @ 0 mls/hr 1X ONCE IV ; Start 02/23/17 at 17:00 ; Stop 02/23/17 at 17:01; Status DC Ondansetron HCl (Zofran) 4 mg PRN Q8HRS PRN IV NAUSEA/VOMITING; Start 02/23/17 at 17:15; Stop 02/24/17 at 17:14; Status DC Furosemide (Lasix) 40 mg [id number] IVP ; Start 02/24/17 at 09:00; Stop 02/24/17 at 14:14; Status DC Sodium Chloride 1,000 ml @ 75 mls/hr [id number] IV ; Start 02/23/17 at 18:00; Stop 02/24/17 at 01:36; Status DC Dexamethasone (Decadron) 8 mg DAILY PO Last administered on 02/26/17 08:01; Start 02/24/17 at 09:00 Famotidine (Pepcid) 20 mg BID PO Last administered on 02/26/17 08:02; Start at 22:00 Fluoxetine HCl (PROzac) 20 mg DAILY PO Last administered on 02/26/17 08:02; Start 02/24/17 at 09:00 Acetaminophen/ Hydrocodone Bitart (Lortab 7.5/325) 1 tab PRN Q4HRS PRN PO PAIN ; Start 02/23/17 at 21:15 Levetiracetam (Keppra) 750 mg BID PO Last administered on 02/26/17 08:01; Start 02/23/17 at 21:00 Metformin HCl (Glucophage) 500 mg BIDWMEALS PO Last administered on 02/26/17 08:02; Start 02/24/17 at 08:00 Tamsulosin HCl (Flomax) 0.4 mg DAILY PO Last administered on 02/26/17 08:02; Start 02/24/17 at 09:00 Dextrose (Dextrose 50%-Water Syringe) 12.5 gm PRN Q15MIN PRN IV SEE COMMENTS; Start 02/23/17 at 21:15 Atorvastatin Calcium (Lipitor) 20 mg QHS PO Last administered on 02/25/17 21: 04; Start 02/24/17 at 21:00 Insulin Aspart (NovoLOG) 0-7 UNITS TIDWMEALS SQ ; Start 02/25/17 at 08:00 Dextrose (Dextrose 50%-Water Syringe) 12.5 gm PRN Q15MIN PRN IV SEE COMMENTS; Start 02/24/17 at 18:00; Status UNV Enoxaparin Sodium (Lovenox 40mg Syringe) 40 mg Q24H SQ Last administered on t 21:04; Start 02/24/17 at 21:00 Active Scripts Active Reported Zofran (Ondansetron Hcl) 4 Mg Tablet 1 Tab PO PRN Q6-8HRS Prozac (Fluoxetine Hcl) 20 Mg Capsule 20 Mg PO DAILY Metformin Hcl 500 Mg Tablet 500 Mg PO BIDWMEALS Keppra (Levetiracetam) 500 Mg Tablet 750 Mg PO BID Famotidine 20 Mg Tablet 20 Mg PO BID Dexamethasone 4 Mg Tablet 2 Tab PO DAILY Tamsulosin Hcl 0.4 Mg Cap.er.24h 0.4 Mg PO DAILY Hydrocodone-Apap 7.5-325 (Hydrocodone Bit/Acetaminophen) 1 Each Tablet 1 Each PO EVERY 4 HOURS Fish Oil 1,200 Mg Softgel ([place]-3 Fatty Acids/Fish Oil) 1 Each Capsule 1 Each PO DAILY Vitals/I & O Vital Sign - Last 24 Hours 02/25/17 02/25/17 02/25/17 02/25/17 12:09 14:15 19:10 20:00 Temp 97.6 97.5 98.6 97.6 97.5 98.6 Pulse 71 59 70 Resp 20 16 B/P (MAP) 134/84 (101) 119/67 (84) 99/64 (76) Pulse Ox 96 97 99 O2 Delivery Room Air Room Air Room Air Room Air O2 Flow Rate 2.0 02/25/17 02/26/17 02/26/17 02/26/17 23:41 03:42 07:10 08:00 Temp 97.4 97.5 97.4 97.5 Pulse 64 61 61 Resp 17 B/P (MAP) 148/70 (96) 110/64 (79) 109/64 (79) Pulse Ox 94 100 95 O2 Delivery Room Air Room Air Room Air Room Air SHAWN CARMONA MD Feb 26, 2017 09:08
--- NOTE | 2017-02-26 10:20 | PDOC ---
PROGRESS NOTES Subjective Subjective feeling stronger Objective Objective Vital Signs Date Time Temp Pulse Resp B/P (MAP) Pulse Ox O2 Delivery O2 Flow Rate FiO2 02/26/17 08:00 Room Air 02/26/17 07:10 97.5 61 17 109/64 (79) 95 97.5 02/25/17 20:00 2.0 Physical Exam Abdomen: Soft, No tenderness Heart: Regular rate, Normal S1, Normal S2, Other (2/6 systolic murmur ) Extremities: No edema, Normal pulses General: Alert, Oriented X3, Cooperative, No acute distress HEENT: Atraumatic, Mucous membr. moist/pink Lungs: Other (diminished bases ) MUSCULOSKELETAL: No swelling, Osteoarthritic changes both hands Neuro: Normal speech, Sensation intact Psych/Mental Status: Mood NL, Other (alert to person and place ) Skin: No breakdown, No significant lesion Diagnosis Problem List Problems Medical Problems: (1) Chronic renal failure Status: Acute (2) Non-STEMI (non-ST elevated myocardial infarction) Status: Acute Assessment Assessment Problems Medical Problems: (1) Chronic renal failure Status: Acute (2) Non-STEMI (non-ST elevated myocardial infarction) Status: Acute FINAL IMPRESSION: 1. Shortness of breath. 2. Elevated brain natriuretic peptide and troponin, possible congestive heart failure diastolic. 3. History of lung cancer, had metastasis to the brain, had radiation and chemo 3 years ago. 4. History of smoking, chronic obstructive pulmonary disease. 5. Diabetes. 6. Hypertension. 7. General debility, has been in a prison lately. 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 pt/ot/rehab. d/c back to [place] tomorrow At this time, admit to hospital. Cardiology is consulted. Echocardiogram and deep venous thrombosis prophylaxis. We will also do venous Doppler, urine as well as deep venous thrombosis prevention. Problems: Plan Plan of Care Problems Medical Problems: (1) Chronic renal failure Status: Acute (2) Non-STEMI (non-ST elevated myocardial infarction) Status: Acute Comment Review of Relevant I have reviewed the following items tereza (where applicable) has been applied. Labs Laboratory Tests Test 02/25/17 11:16 02/25/17 16:29 02/25/17 21:24 02/26/17 05:10 Glucose (Fingerstick) 97 mg/dL (70-99) 120 mg/dL (70-99) 86 mg/dL (70-99) White Blood Count 6.1 x10^3/uL (4.0-11.0) Red Blood Count 4.27 x10^6/uL (4.30-5.70) Hemoglobin 11.3 g/dL (13.0-17.5) Hematocrit 34.8 % (39.0-53.0) Mean Corpuscular Volume 81 fL (79-100) Mean Corpuscular Hemoglobin 26 pg (25-35) Mean Corpuscular Hemoglobin Concent 32 g/dL (31-37) Red Cell Distribution Width 17.6 % (11.5-14.5) Platelet Count 250 x10^3/uL (140-400) Neutrophils (%) (Auto) 75 % (31-73) Lymphocytes (%) (Auto) 17 % (24-48) Monocytes (%) (Auto) 8 % (0-9) Eosinophils (%) (Auto) 0 % (0-3) Basophils (%) (Auto) 0 % (0-3) Neutrophils # (Auto) 4.6 x10^3uL (1.8-7.7) Lymphocytes # (Auto) 1.0 x10^3/uL (1.0-4.8) Monocytes # (Auto) 0.5 x10^3/uL (0.0-1.1) Eosinophils # (Auto) 0.0 x10^3/uL (0.0-0.7) Basophils # (Auto) 0.0 x10^3/uL (0.0-0.2) Sodium Level 137 mmol/L (136-145) Potassium Level 5.1 mmol/L (3.5-5.1) Chloride Level 104 mmol/L (98-107) Carbon Dioxide Level 24 mmol/L (21-32) Anion Gap 9 (6-14) Blood Urea Nitrogen 35 mg/dL (8-26) Creatinine 1.3 mg/dL (0.7-1.3) Estimated GFR (Cockcroft-Gault) 64.8 Glucose Level 79 mg/dL (70-99) Calcium Level 9.1 mg/dL (8.5-10.1) Test 02/26/17 07:19 02/26/17 08:00 Glucose (Fingerstick) 59 mg/dL (70-99) 81 mg/dL (70-99) Microbiology 02/23/17 Blood Culture - Preliminary, Resulted NO GROWTH AFTER 2 DAYS Vitals/I & O Vital Sign - Last 24 Hours 02/25/17 02/25/17 02/25/17 02/25/17 12:09 14:15 19:10 20:00 Temp 97.6 97.5 98.6 97.6 97.5 98.6 Pulse 71 59 70 Resp 20 19 16 B/P (MAP) 134/84 (101) 119/67 (84) 99/64 (76) Pulse Ox 96 97 99 O2 Delivery Room Air Room Air Room Air Room Air O2 Flow Rate 2.0 02/25/17 02/26/17 02/26/17 02/26/17 23:41 03:42 07:10 08:00 Temp 97.4 97.5 97.4 97.5 Pulse 64 61 61 Resp 16 16 17 B/P (MAP) 148/70 (96) 110/64 (79) 109/64 (79) Pulse Ox 94 100 95 O2 Delivery Room Air Room Air Room Air Room Air HUMERA MALIK MD Feb 26, 2017 10:20
[2017-02-26 11:07] VITALS: BP 123/69
--- NOTE | 2017-02-26 13:23 | CONS ---
DATE OF CONSULTATION: 02/25/2017 ATTENDING PHYSICIAN: Dr. Ibrahim. REASON FOR CONSULTATION: The patient was seen at the request of Dr. Ibrahim for rehab evaluation. HISTORY OF PRESENT ILLNESS: This is a 76-year-old male. The patient usually goes to [facility] for treatment, was found to have a carcinoma of lung with metastasis to brain about 2-3 years ago, had radiation and chemotherapy, doing satisfactorily. The patient was admitted as per transfer from [facility] where he has been there for the last month or so. He was admitted with shortness of breath and his troponin was slightly elevated. The patient with known coronary artery disease, also hypertension, hyperlipidemia and diabetes mellitus, status post right shoulder surgery, family history of hypertension. The patient is known ALLERGIC TO CODEINE. He denies any trouble with bowel control or swallowing or speech, but admits some difficulty with urinary incontinence on occasion. The patient denies any pain. He had radiological studies including Doppler studies of both lower extremities, which was negative for deep venous thrombosis. CT scan of the brain revealed no acute changes, unchanged calcified density in the right frontoparietal region, likely known meningioma. Chest x-ray revealed irregular airspace opacity identified in the left hilar region, could be mass or scaring. PHYSICAL EXAMINATION: Today, revealed an elderly male. He is alert, oriented to time, place, person and circumstance and follows commands appropriately, moves all 4 extremities voluntarily where he had 4+/5 grade muscle strength. Deep tendon reflexes are 1 to 2+ and symmetrical with absent ankle jerks and he had equal perception of touch and pinprick sensation bilaterally. Mild crepitus on range of motion of both knee joints without any obvious knee joint effusion. He is independent with bed mobility and transfers and walked using a roller walker without any loss of balance. No obvious visual perceptual or obvious cognitive or swallowing deficits were noted at the present time. 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 RECOMMENDATION: Back to shelter care unit or home with outpatient or home health followup when he is medically stable. Dr. Ibrahim, I appreciate asking me to participate in the care of this interesting patient. I will be glad to follow him with you as needed for his rehabilitation. SHAWN CARMONA MD DR: JASPER/amador JOB#: [id number] / [id number]
[2017-02-26 14:53] VITALS: BP 138/79
[2017-02-26] MEDS ORDERED: predniSONE 10 MG TABLET PO SCH (17:00)
[2017-02-26 19:20] VITALS: BP 110/69
[2017-02-26] MEDS: ENOXAPARIN 40 MG/0.4 ML SYRINGE. SQ SCH (20:35)
[2017-02-26] MEDS: ATORVASTATIN CALCIUM 20 MG TABLET PO SCH (20:35)
[2017-02-26 23:20] VITALS: BP 110/63
[2017-02-27 03:20] VITALS: BP 114/66
[2017-02-27 07:00] VITALS: BP 123/77
[2017-02-27] MEDS: INSULIN ASPART 300 UNITS/3 ML INSULN.PEN SQ SCH ×3 (08:00→16:22)
--- NOTE | 2017-02-27 09:28 | PDOC ---
PROGRESS NOTES Subjective Subjective Low temp yesterday ,asymptomatic Objective Objective Vital Signs Date Time Temp Pulse Resp B/P (MAP) Pulse Ox O2 Delivery O2 Flow Rate FiO2 02/27/17 08:00 Room Air 02/27/17 07:00 96.6 80 20 123/77 (92) 94 96.6 Physical Exam Abdomen: Soft, No tenderness Heart: Regular rate, Normal S1, Normal S2, Other (2/6 systolic murmur ) Extremities: No edema, Normal pulses General: Alert, Oriented X3, Cooperative, No acute distress HEENT: Atraumatic, Mucous membr. moist/pink Lungs: Other (diminished bases ) MUSCULOSKELETAL: No swelling, Osteoarthritic changes both hands Neuro: Normal speech, Sensation intact Psych/Mental Status: Mood NL, Other (alert to person and place ) Skin: No breakdown, No significant lesion Diagnosis Problem List Problems Medical Problems: (1) Chronic renal failure Status: Acute (2) Non-STEMI (non-ST elevated myocardial infarction) Status: Acute Assessment Assessment Problems Medical Problems: (1) Chronic renal failure Status: Acute (2) Non-STEMI (non-ST elevated myocardial infarction) Status: Acute FINAL IMPRESSION: 1. Shortness of breath due to diastolic heart failure. 2. Elevated brain natriuretic peptide and troponin, possible congestive heart failure diastolic. 3. History of lung cancer, had metastasis to the brain, had radiation and chemo 3 years ago. 4. History of smoking, chronic obstructive pulmonary disease. 5. Diabetes. 6. Hypertension. 7. General debility, has been in a detention lately. 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 pt/ot/rehab. d/c back to [place] today if stress test -ve Problems: Plan Plan of Care Problems Medical Problems: (1) Chronic renal failure Status: Acute (2) Non-STEMI (non-ST elevated myocardial infarction) Status: Acute Comment Review of Relevant I have reviewed the following items tereza (where applicable) has been applied. Labs Laboratory Tests Test 02/26/17 11:47 02/26/17 16:36 02/26/17 20:34 02/27/17 07:33 Glucose (Fingerstick) 70 mg/dL (70-99) 83 mg/dL (70-99) 152 mg/dL (70-99) 75 mg/dL (70-99) Microbiology 02/23/17 Blood Culture - Preliminary, Resulted NO GROWTH AFTER 3 DAYS Medications Current Medications Prednisone (Prednisone) 10 mg DAILY PO ; Start 02/26/17 at 17:00; Status Cancel Vitals/I & O Vital Sign - Last 24 Hours 02/26/17 02/26/17 02/26/17 02/26/17 11:07 14:53 15:27 19:20 Temp 94.2 97.3 94.2 97.3 Pulse 65 66 83 Resp 16 18 20 B/P (MAP) 123/69 (87) 138/79 (98) 110/69 (83) Pulse Ox 93 93 97 O2 Delivery Room Air Room Air Room Air 02/26/17 02/26/17 02/27/17 02/27/17 20:00 23:20 03:20 07:00 Temp 98.2 97.7 96.6 98.2 97.7 96.6 Pulse 79 82 80 Resp 18 18 20 B/P (MAP) 110/63 (79) 114/66 (82) 123/77 (92) Pulse Ox 96 94 94 O2 Delivery Room Air Room Air Room Air Room Air 02/27/17 08:00 O2 Delivery Room Air HUMERA MALIK MD Feb 27, 2017 09:28
--- NOTE | 2017-02-27 09:29 | PDOC ---
PROGRESS NOTES Subjective Subjective No new complaints. Objective Objective Vital Signs Date Time Temp Pulse Resp B/P (MAP) Pulse Ox O2 Delivery O2 Flow Rate FiO2 02/27/17 08:00 Room Air 02/27/17 07:00 96.6 80 20 123/77 (92) 94 96.6 02/25/17 20:00 2.0 Physical Exam Physical Exam He is alert and comfortable sitting at edge of bed and he remains independent walking with roller walker. Physical endurance is low. Assessment Assessment Problems Medical Problems: (1) Chronic renal failure Status: Acute (2) Non-STEMI (non-ST elevated myocardial infarction) Status: Acute Plan Plan of Care To SNF when medically stable. Comment Review of Relevant I have reviewed the following items tereza (where applicable) has been applied. Labs Laboratory Tests Test 02/25/17 10:15 02/25/17 11:16 02/25/17 16:29 02/25/17 17:45 Sodium Level 134 mmol/L (136-145) Potassium Level 3.5 mmol/L (3.5-5.1) Chloride Level 100 mmol/L (98-107) Carbon Dioxide Level 26 mmol/L (21-32) Anion Gap 8 (6-14) Blood Urea Nitrogen 35 mg/dL (8-26) Creatinine 1.6 mg/dL (0.7-1.3) Estimated GFR (Cockcroft-Gault) 51.0 Glucose Level 105 mg/dL (70-99) Calcium Level 8.8 mg/dL (8.5-10.1) Glucose (Fingerstick) 97 mg/dL (70-99) 120 mg/dL (70-99) Nasal Screen MRSA (PCR) Negative (Negative) Test 02/25/17 21:24 02/26/17 05:10 02/26/17 07:19 02/26/17 08:00 Glucose (Fingerstick) 86 mg/dL (70-99) 59 mg/dL (70-99) 81 mg/dL (70-99) White Blood Count 6.1 x10^3/uL (4.0-11.0) Red Blood Count 4.27 x10^6/uL (4.30-5.70) Hemoglobin 11.3 g/dL (13.0-17.5) Hematocrit 34.8 % (39.0-53.0) Mean Corpuscular Volume 81 fL (79-100) Mean Corpuscular Hemoglobin 26 pg (25-35) Mean Corpuscular Hemoglobin Concent 32 g/dL (31-37) Red Cell Distribution Width 17.6 % (11.5-14.5) Platelet Count 250 x10^3/uL (140-400) Neutrophils (%) (Auto) 75 % (31-73) Lymphocytes (%) (Auto) 17 % (24-48) Monocytes (%) (Auto) 8 % (0-9) Eosinophils (%) (Auto) 0 % (0-3) Basophils (%) (Auto) 0 % (0-3) Neutrophils # (Auto) 4.6 x10^3uL (1.8-7.7) Lymphocytes # (Auto) 1.0 x10^3/uL (1.0-4.8) Monocytes # (Auto) 0.5 x10^3/uL (0.0-1.1) Eosinophils # (Auto) 0.0 x10^3/uL (0.0-0.7) Basophils # (Auto) 0.0 x10^3/uL (0.0-0.2) Sodium Level 137 mmol/L (136-145) Potassium Level 5.1 mmol/L (3.5-5.1) Chloride Level 104 mmol/L (98-107) Carbon Dioxide Level 24 mmol/L (21-32) Anion Gap 9 (6-14) Blood Urea Nitrogen 35 mg/dL (8-26) Creatinine 1.3 mg/dL (0.7-1.3) Estimated GFR (Cockcroft-Gault) 64.8 Glucose Level 79 mg/dL (70-99) Calcium Level 9.1 mg/dL (8.5-10.1) Test 02/26/17 11:47 02/26/17 16:36 02/26/17 20:34 02/27/17 07:33 Glucose (Fingerstick) 70 mg/dL (70-99) 83 mg/dL (70-99) 152 mg/dL (70-99) 75 mg/dL (70-99) Laboratory Tests Test 02/26/17 11:47 02/26/17 16:36 02/26/17 20:34 02/27/17 07:33 Glucose (Fingerstick) 70 mg/dL (70-99) 83 mg/dL (70-99) 152 mg/dL (70-99) 75 mg/dL (70-99) Microbiology 02/23/17 Blood Culture - Preliminary, Resulted NO GROWTH AFTER 3 DAYS Medications Current Medications Albuterol/ Ipratropium (Duoneb) 3 ml 1X ONCE NEB Last administered on 15:58; Start 02/23/17 at 15:15; Stop 02/23/17 at 15:16; Status DC Ondansetron HCl (Zofran) 4 mg PRN Q8HRS PRN IV NAUSEA/VOMITING; Start 02/23/17 at 15:45; Stop 02/24/17 at 15:44; Status DC Furosemide (Lasix) 40 mg 1X ONCE IVP Last administered on 02/23/17 17:52; Start 02/23/17 at 17:00; Stop 02/24/17 at 14:14; Status DC Aspirin (Children'S Aspirin) 324 mg 1X ONCE PO Last administered on 02/23/17 17:41; Start 02/23/17 at 17:00; Stop 02/23/17 at 17:01; Status DC Nitroglycerin/ Dextrose 250 ml @ 0 mls/hr 1X ONCE IV ; Start 02/23/17 at 17:00 ; Stop 02/23/17 at 17:01; Status DC Ondansetron HCl (Zofran) 4 mg PRN Q8HRS PRN IV NAUSEA/VOMITING; Start 02/23/17 at 17:15; Stop 02/24/17 at 17:14; Status DC Furosemide (Lasix) 40 mg [id number] IVP ; Start 02/24/17 at 09:00; Stop 02/24/17 at 14:14; Status DC Sodium Chloride 1,000 ml @ 75 mls/hr [id number] IV ; Start 02/23/17 at 18:00; Stop 02/24/17 at 01:36; Status DC Dexamethasone (Decadron) 8 mg DAILY PO Last administered on 02/26/17 08:01; Start 02/24/17 at 09:00 Famotidine (Pepcid) 20 mg BID PO Last administered on 02/26/17 20:35; Start at 22:00 Fluoxetine HCl (PROzac) 20 mg DAILY PO Last administered on 02/26/17 08:02; Start 02/24/17 at 09:00 Acetaminophen/ Hydrocodone Bitart (Lortab 7.5/325) 1 tab PRN Q4HRS PRN PO PAIN ; Start 02/23/17 at 21:15 Levetiracetam (Keppra) 750 mg BID PO Last administered on 02/26/17 20:35; Start 02/23/17 at 21:00 Metformin HCl (Glucophage) 500 mg BIDWMEALS PO Last administered on 02/26/17 08:02; Start 02/24/17 at 08:00 Tamsulosin HCl (Flomax) 0.4 mg DAILY PO Last administered on 02/26/17 08:02; Start 02/24/17 at 09:00 Dextrose (Dextrose 50%-Water Syringe) 12.5 gm PRN Q15MIN PRN IV SEE COMMENTS; Start 02/23/17 at 21:15 Atorvastatin Calcium (Lipitor) 20 mg QHS PO Last administered on 02/26/17 20: 35; Start 02/24/17 at 21:00 Insulin Aspart (NovoLOG) 0-7 UNITS TIDWMEALS SQ ; Start 02/25/17 at 08:00 Dextrose (Dextrose 50%-Water Syringe) 12.5 gm PRN Q15MIN PRN IV SEE COMMENTS; Start 02/24/17 at 18:00; Status UNV Enoxaparin Sodium (Lovenox 40mg Syringe) 40 mg Q24H SQ Last administered on 20:35; Start 02/24/17 at 21:00 Prednisone (Prednisone) 10 mg DAILY PO ; Start 02/26/17 at 17:00; Status Cancel Active Scripts Active Reported Zofran (Ondansetron Hcl) 4 Mg Tablet 1 Tab PO PRN Q6-8HRS Prozac (Fluoxetine Hcl) 20 Mg Capsule 20 Mg PO DAILY Metformin Hcl 500 Mg Tablet 500 Mg PO BIDWMEALS Keppra (Levetiracetam) 500 Mg Tablet 750 Mg PO BID Famotidine 20 Mg Tablet 20 Mg PO BID Dexamethasone 4 Mg Tablet 2 Tab PO DAILY Tamsulosin Hcl 0.4 Mg Cap.er.24h 0.4 Mg PO DAILY Hydrocodone-Apap 7.5-325 (Hydrocodone Bit/Acetaminophen) 1 Each Tablet 1 Each PO EVERY 4 HOURS Fish Oil 1,200 Mg Softgel (Twain-3 Fatty Acids/Fish Oil) 1 Each Capsule 1 Each PO DAILY Vitals/I & O Vital Sign - Last 24 Hours 02/26/17 02/26/17 02/26/17 02/26/17 11:07 14:53 15:27 19:20 Temp 94.2 97.3 94.2 97.3 Pulse 65 66 83 Resp 16 18 20 B/P (MAP) 123/69 (87) 138/79 (98) 110/69 (83) Pulse Ox 93 93 97 O2 Delivery Room Air Room Air Room Air 02/26/17 02/26/17 02/27/17 02/27/17 20:00 23:20 03:20 07:00 Temp 98.2 97.7 96.6 98.2 97.7 96.6 Pulse 79 82 80 Resp 18 18 20 B/P (MAP) 110/63 (79) 114/66 (82) 123/77 (92) Pulse Ox 96 94 94 O2 Delivery Room Air Room Air Room Air Room Air 02/27/17 08:00 O2 Delivery Room Air SHAWN CARMONA MD Feb 27, 2017 09:29
[2017-02-27 11:00] VITALS: BP 129/73
[2017-02-27] MEDS ORDERED: REGADENOSON 0.4 MG/5 ML DISP.SYRIN. IV ONE ×2 (11:25→11:30)
[2017-02-27] MEDS: FAMOTIDINE 20 MG TABLET. PO SCH (12:22)
[2017-02-27] MEDS: DEXAMETHASONE 4 MG TABLET PO SCH (12:22)
[2017-02-27] MEDS: levETIRAcetam 500 MG TABLET PO SCH (12:22)
[2017-02-27] MEDS: FLUoxetine HCL 20 MG CAPSULE PO SCH (12:22)
[2017-02-27] MEDS: TAMSULOSIN 0.4 MG CAP.ER.24H. PO SCH (12:22)
[2017-02-27] MEDS: metFORMIN 500 MG TABLET PO SCH ×2 (12:23→16:03)
[2017-02-27 15:00] VITALS: BP 108/62
--- NOTE | 2017-02-27 16:12 | RAD ---
APPROVED REPORT Test Type: Pharmacological Stress Nurse/Tech: Meseret Fletcher R.N. Test Indications: CP, SOA Cardiac History: CHF, high cholesterol,htn, DM Medications: See Electronic Medical Record Medical History: See Electronic Medical Record Resting ECG: SR w/ inverted T waves in leadsAVR, V1-V4 Resting Heart Rate: 76 bpm Resting Blood Pressure: 132/63mmHg Pretest Chest Pain: No chest pain Nurse/Tech Notes S1S2, lungs CTA Consent: The procedure was explained to the patient in lay terms. Informed consent was witnessed. Nick eout was entered into [id number]. History and Stress Test performed by RT Thea (R) (N) Pharm. Details Pharmacologic stress testing was performed using 0.4mg per 5ml of regadenoson given intravenously ove r 7-10 seconds. Stress Symptoms SOB which he recovered from by end of recovery period POST EXERCISE Reason for Termination: Infusion complete Max HR: 89 bpm Max Blood Pressure: 131/53mmHg Blood Pressure response to exercise: Normal blood pressure response during stress. Heart Rate response to exercise: wnl Chest Pain: No. Arrhythmia: No. ST Change: No. INTERPRETATION Stress EKG Conclusion: No evidence of stress induced EKG changes. Imaging Protocol IMAGE PROTOCOL: Rest Tc-99m/stress Tc-99m 1 day Rest: Stress: Viability: Radiopharm.Tc99m [id number] Sestamibi Wnve69cMw 32mCi Img Date 02/27/2017 02/27/2017 Inj-Img [id number]. 60min. Rest Admin Site:IV - Right ForearmAdministrator:MONICA Galeano, JEET (R)(N) Stress Admin Site: IV - Right ForearmAdministrator: RT Thea (R)(N) STRESS DATA End Diast. Vol.54.0mlAv. Heart Rate78.0bpm End Syst. Vol.14.0mlCO Index BSA3.1L/min Myocardial Mass93.0gEject. Xxdpmvsl14.0% Stress Rates Pk. Fill Rate2.76EDV/secLVtime Pk. Fill 130.70msec Pk. Empty Rate4.97ESV/secLVtime Pk. Pnywz977.04msec 06/03 Pk. Fill1.61EDV/sec Stress Scores Regional WT2.00Summed WT22.00 Regional WM0.00Summed WM0.00 The rest and stress images show normal perfusion, normal contraction and thickening. LV Perf. Quant 17 Seg. SSS0.00 17 Seg. SRS0.00 17 Seg. SDS0.00 Stress Defect Extent (% LAD)0.00Rest Defect Extent (% LAD)0.00Rev. Defect Extent (% LAD)0.00 Stress Defect Extent (% LCX) 0.00Rest Defect Extent (% LCX)0.00Rev. Defect Extent (% LCX)0.00 Stress Defect Extent (% RCA)0.00Rest Defect Extent (% RCA)0.00Rev. Defect Extent (% RCA)0.00 Stress Defect Extent (% AMY)0.00Rest Defect Extent (% AMY)0.00Rev. Defect Extent (% AMY)0.00 Other Information Quality:Good Risk Assessment: Low Risk Conclusion 1. No evidence of EKG changes with stress testing. 2. Normal perfusion at stress/rest. 3. Low risk study. 4. EF > 60%.
--- NOTE | 2017-02-28 22:23 | PDOC ---
Provider Note Provider Note Discharge summary dictated. #[id number] HUMERA MALIK MD Feb 28, 2017 22:23
--- NOTE | 2017-03-02 11:27 | DS ---
DATE OF DISCHARGE: 02/27/2017 REASON FOR ADMISSION TO THE HOSPITAL: 1. Shortness of breath. 2. Congestive heart failure, acute. 3. Diastolic heart failure. PROCEDURES DONE: 1. Echocardiogram. 2. Nuclear stress test. 3. Venous Doppler. 4. CT head. COMPLICATIONS NOTED: None. HOSPITAL COURSE: The patient is a 76-year-old male with history of lung cancer with metastasis to the brain, had radiation and chemo 3 years ago. He has been doing relatively well. He has been weak. He was at [facility] with shortness of breath, was admitted to the hospital, was found to be in acute heart failure secondary to diastolic heart failure. Echo shows 60% ejection fraction, was given Lasix, condition improved. Initially, the patient was placed on BiPAP, later on changed to oxygen nasal cannula. Seen by Cardiology. Echo,good LVF and Pulmonary systolic pressure was slightly high at 40. The patient had a slightly elevated troponin, was thought to be secondary to demand ischemia. Had a stress test Lexiscan, which was negative for ischemia. The patient had a venous Doppler that was negative for DVT and seen by Physical Therapy, Rehab and it was felt that he is back to his baseline and discharged back to the skilled nursing. He also had slight hypothermia secondary to possible adrenal insufficiency. The patient is on dexamethasone supplementation. Continue that and follow up at the skilled nursing. FINAL DIAGNOSES: 1. Acute diastolic heart failure. 2. Stress test Negative for ischemia, slightly elevated troponin secondary to demand ischemia. 3. History of lung cancer with metastasis to the brain, had radiation and chemo 3 years ago at [facility]. 4. Hypertension. 5. Diabetes. 6. Adrenal insufficiency, chronic. 7. Hypothermia related to adrenal insufficiency. DISPOSITION: Back to the skilled nursing,see discharge medications. HUMERA MALIK MD DR: JOAN/amador JOB#: [id number] / [id number] EARL
== END 2017-02-27 18:30 | DRG 682 ==
LOC: ER 11:02 → ED HOLD 15:20 → 2 SOUTH 18:42 → 6 SOUTH 02-25 12:10
PROVIDERS: ADMIT Internal Medicine; ATTEND Internal Medicine
PROC: 5A09357 Assistance with Respiratory Ventilation, Less than 24 Consecutive Hours, Continuous Positive Airway Pressure (ICD-10-PCS; principal; 2017-02-23)
DX: N17.9 Acute kidney failure, unspecified (principal); I50.33 Acute on chronic diastolic (congestive) heart failure; T68.XXXA Hypothermia, initial encounter; E11.22 Type 2 diabetes mellitus with diabetic chronic kidney disease; I13.2 Hypertensive heart and chronic kidney disease with heart failure and with stage 5 chronic kidney disease, or end stage renal disease; E27.40 Unspecified adrenocortical insufficiency; F03.90 Unspecified dementia, unspecified severity, without behavioral disturbance, psychotic disturbance, mood disturbance, and anxiety; J44.9 Chronic obstructive pulmonary disease, unspecified; E11.42 Type 2 diabetes mellitus with diabetic polyneuropathy; E78.00 Pure hypercholesterolemia, unspecified; F32.9 Major depressive disorder, single episode, unspecified; M54.5 Low back pain; E78.5 Hyperlipidemia, unspecified; I25.10 Atherosclerotic heart disease of native coronary artery without angina pectoris; K21.9 Gastro-esophageal reflux disease without esophagitis; M17.0 Bilateral primary osteoarthritis of knee; R32 Unspecified urinary incontinence; Z82.49 Family history of ischemic heart disease and other diseases of the circulatory system; Z85.118 Personal history of other malignant neoplasm of bronchus and lung; Z85.841 Personal history of malignant neoplasm of brain; Z87.891 Personal history of nicotine dependence; Z88.5 Allergy status to narcotic agent; Z92.21 Personal history of antineoplastic chemotherapy; Z92.3 Personal history of irradiation; Z99.2 Dependence on renal dialysis
CPT/HCPCS: 36415; 36600; 51701; 70450; 71010; 78452; 80048; 80053; 80061; 81001; 82533; 82550; 82805; 82962; 83036; 83735; 83880; 84443; 84484; 85007; 85025; 87040; 87641; 93005; 93017; 93306; 93970; 94250; 94640; 94660; 96374; 96375; 96376; A9500; J1650; J1940; J2785; J7620; J8540; 97116; 97535; 99285-25

== ENCOUNTER 2017-05-24 17:43 | Inpatient (IN) | payer MEDICARE ==
[~2017-05-24] VITALS: Ht 177.8 cm; Wt 84.8 kg
[~2017-05-24 17:43] MED LIST changes: +DEXA4TAB PO; +FAMO20TA5 PO; +FLUO20CA16 PO; +LEVE500T56 PO; +ONDA4TAB7 PO
--- NOTE | 2017-05-24 18:11 | PHYS DOC ---
Past Medical History Past Medical History: Cancer, Depression, Diabetes-Type II, GERD, High Cholesterol, Hypertension, Kidney Infection, Other Additional Past Medical Histor: LUNG & BRAIN CANCER TREATED W/ RADIATION & CHEMO Past Surgical History: Other Additional Past Surgical Histo: RIGHT RIB REMOVED Alcohol Use: None Drug Use: None Adult General Chief Complaint Chief Complaint: ALTERED MENTAL STATUS HPI HPI Patient is a 76 year old male who presents from a alf with a history onset today of increased confusion and urinary incontinence; no fever nausea vomiting diarrhea no cough no chest pain no headache or blurry vision; no recent history of falls or injury to head. Patient has a history of extensive medical issues including lung cancer NSTEMI CHF diabetes hyponatremia. Patient is DNR Review of Systems Review of Systems Constitutional: Denies fever or chills [] Eyes: Denies change in visual acuity, redness, or eye pain [] HENT: Denies nasal congestion or sore throat [] Respiratory: Denies cough or shortness of breath [] Cardiovascular: No additional information not addressed in HPI [] GI: Denies abdominal pain, nausea, vomiting, bloody stools or diarrhea [] : Denies dysuria or hematuria [] Musculoskeletal: Denies back pain or joint pain [] Integument: Denies rash or skin lesions [] Neurologic: Denies headache, focal weakness or sensory changes [] Endocrine: Denies polyuria or polydipsia [] All other systems were reviewed and found to be within normal limits, except as documented in this note. Current Medications Current Medications Current Medications Medications (Trade) Dose Ordered Sig/Fanny Start Time Stop Time Status Last Admin Dose Admin Acetaminophen (Tylenol) 650 mg PRN Q4HRS PRN 05/24/17 20:30 05/25/17 20:29 Morphine Sulfate 2 mg PRN Q2HR PRN 05/24/17 20:30 05/25/17 20:29 Ondansetron HCl (Zofran) 4 mg PRN Q8HRS PRN 05/24/17 20:30 05/25/17 20:29 Piperacillin Sod/ Tazobactam Sod 4.5 gm/Dextrose 100 ml @ 200 mls/hr 1X ONCE 05/24/17 20:30 05/24/17 20:30 DC Sodium Chloride 1,000 ml @ 150 mls/hr Q6H40M 05/24/17 20:24 05/25/17 20:23 Vancomycin HCl 1.75 gm/Sodium Chloride 500 ml @ 250 mls/hr 1X ONCE 05/24/17 20:30 05/24/17 20:30 DC Allergies Allergies Allergies Coded Allergies Type Severity Reaction Last Updated Verified codeine Allergy Intermediate RASH, ITCH 05/10/15 Yes Physical Exam Physical Exam Constitutional: Well developed, well nourished, no acute distress, non-toxic appearance. [] HENT: Normocephalic, atraumatic, bilateral external ears normal, oropharynx moist, no oral exudates, nose normal. [] Eyes: PERRLA, EOMI, conjunctiva normal, no discharge. [] Neck: Normal range of motion, no tenderness, supple, no stridor. [] Cardiovascular:Heart rate regular rhythm, no murmur [] Lungs & Thorax: Bilateral breath sounds clear to auscultation [] Abdomen: Bowel sounds normal, soft, no tenderness, no masses, no pulsatile masses. [] Skin: Warm, dry, no erythema, no rash. [] Back: No tenderness, no CVA tenderness. [] Extremities: No tenderness, no cyanosis, no clubbing, ROM intact, no edema. [] Neurologic: Alert and oriented X 3, normal motor function, normal sensory function, no focal deficits noted. [] Psychologic: Affect normal, judgement normal, mood normal. [] Current Patient Data Vital Signs Vital Signs Date Time Temp Pulse Resp B/P (MAP) Pulse Ox O2 Delivery O2 Flow Rate FiO2 05/24/17 20:00 80 15 97 05/24/17 17:50 97.7 165/90 (115) Room Air 97.7 Lab Values Laboratory Tests Test 05/24/17 18:10 05/24/17 18:20 05/24/17 19:20 Urine Collection Type Unknown Urine Color Yellow Urine Clarity Clear Urine pH 5.5 Urine Specific Julian 1.010 Urine Protein Negative mg/dL (NEG-TRACE) Urine Glucose (UA) Negative mg/dL (NEG) Urine Ketones (Stick) Negative mg/dL (NEG) Urine Blood Negative (NEG) Urine Nitrite Negative (NEG) Urine Bilirubin Negative (NEG) Urine Urobilinogen Dipstick 0.2 mg/dL (0.2 mg/dL) Urine Leukocyte Esterase Negative (NEG) Urine RBC 0 /HPF (0-2) Urine WBC 0 /HPF (0-4) Urine Bacteria 0 /HPF (0-FEW) Urine Hyaline Casts Moderate /HPF Urine Mucus Mod /LPF White Blood Count 12.3 x10^3/uL (4.0-11.0) H Red Blood Count 4.41 x10^6/uL (4.30-5.70) Hemoglobin 11.1 g/dL (13.0-17.5) L Hematocrit 35.3 % (39.0-53.0) L Mean Corpuscular Volume 80 fL (79-100) Mean Corpuscular Hemoglobin 25 pg (25-35) Mean Corpuscular Hemoglobin Concent 32 g/dL (31-37) Red Cell Distribution Width 19.1 % (11.5-14.5) H Platelet Count 237 x10^3/uL (140-400) Neutrophils (%) (Auto) 90 % (31-73) H Lymphocytes (%) (Auto) 8 % (24-48) L Monocytes (%) (Auto) 2 % (0-9) Eosinophils (%) (Auto) 0 % (0-3) Basophils (%) (Auto) 1 % (0-3) Neutrophils # (Auto) 11.0 x10^3uL (1.8-7.7) H Lymphocytes # (Auto) 1.0 x10^3/uL (1.0-4.8) Monocytes # (Auto) 0.2 x10^3/uL (0.0-1.1) Eosinophils # (Auto) 0.0 x10^3/uL (0.0-0.7) Basophils # (Auto) 0.1 x10^3/uL (0.0-0.2) Segmented Neutrophils % 88 % (35-66) H Band Neutrophils % 2 % (0-9) Lymphocytes % 7 % (24-48) L Monocytes % 3 % (0-10) Platelet Estimate Adequate (ADEQUATE) Poikilocytosis Slight Anisocytosis Slight Ovalocytes Few Sodium Level 140 mmol/L (136-145) Potassium Level 4.2 mmol/L (3.5-5.1) Chloride Level 103 mmol/L (98-107) Carbon Dioxide Level 23 mmol/L (21-32) Anion Gap 14 (6-14) Blood Urea Nitrogen 20 mg/dL (8-26) Creatinine 1.5 mg/dL (0.7-1.3) H Estimated GFR (Cockcroft-Gault) 54.9 BUN/Creatinine Ratio 13 (6-20) Glucose Level 158 mg/dL (70-99) H Lactic Acid Level 3.0 mmol/L (0.4-2.0) H 2.8 mmol/L (0.4-2.0) H Calcium Level 8.8 mg/dL (8.5-10.1) Total Bilirubin 0.3 mg/dL (0.2-1.0) Aspartate Amino Transferase (AST) 15 U/L (15-37) Alanine Aminotransferase (ALT) 13 U/L (16-63) L Alkaline Phosphatase 56 U/L (46-116) Total Protein 6.9 g/dL (6.4-8.2) Albumin 3.5 g/dL (3.4-5.0) Albumin/Globulin Ratio 1.0 (1.0-1.7) Laboratory Tests 05/24/17 18:20 Laboratory Tests 05/24/17 18:20 EKG EKG [] Radiology/Procedures Radiology/Procedures Chest x-ray no acute changes compared to prior my interpretation[ CT head without contrast] Course & Med Decision Making Course & Med Decision Making Pertinent Labs and Imaging studies reviewed. (See chart for details) [] Dragon Disclaimer Dragon Disclaimer This electronic medical record was generated, in whole or in part, using a voice recognition dictation system. Departure Departure Impression: Primary Impression: Altered mental status Additional Impressions: Leukocytosis Lactic acidosis Disposition: 09 ADMITTED INPATIENT Admitting Physician: Saroj Meier Condition: STABLE Referrals: HUMERA MALIK MD (PCP) Problem Qualifiers XOCHITL HICKS MD May 24, 2017 18:11
[2017-05-24] MEDS ORDERED: IV NORMAL SALINE 500ML BAG 500 ML IV ONE (18:15)
[2017-05-24 18:26] LABS: BASO # 0.1 x10^3/uL (0.0-0.2); BASO % 1 % (0-3); EOS % 0 % (0-3); HEMATOCRIT 35.3 % (39.0-53.0); HEMOGLOBIN 11.1 g/dL (13.0-17.5); LYMPH % 8 % (24-48); MEAN CORPUSCULAR HEMOGLOBIN 25 pg (25-35); MEAN CORPUSCULAR HGB CONC 32 g/dL (31-37); MEAN CORPUSCULAR VOLUME 80 fL (79-100); MONO % 2 % (0-9); NEUT % 90 % (31-73); PLATELET COUNT 237 x10^3/uL (140-400); RED BLOOD COUNT 4.41 x10^6/uL (4.30-5.70); RED CELL DISTRIBUTION WIDTH 19.1 % (11.5-14.5); WHITE BLOOD COUNT 12.3 x10^3/uL (4.0-11.0)
[2017-05-24 18:27] LABS: BILIRUBIN,URINE NEGATIVE (NEG); GLUCOSE,URINE NEGATIVE (NEG); NITRITE,URINE NEGATIVE (NEG); PH,URINE 5.5; PROTEIN,URINE NEGATIVE (NEG-TRACE); UROBILINOGEN,URINE 0.2 mg/dL (0.2 mg/dL)
[2017-05-24 18:32] LABS: BACTERIA,URINE 0 /HPF (0-FEW); RBC,URINE 0 /HPF (0-2); WBC,URINE 0 /HPF (0-4)
--- NOTE | 2017-05-24 18:41 | RAD ---
PQRS Compliance Statement: One or more of the following individualized dose reduction techniques were utilized for this examination: 1. Automated exposure control 2. Adjustment of the mA and/or kV according to patient size 3. Use of iterative reconstruction technique CT HEAD WITHOUT CONTRAST History: ams Comparison: CT head without contrast February 23, 2017. Technique: Axial images are obtained of the head from the skull base through the vertex without IV contrast. Findings: No midline shift, extra-axial fluid collection, or hemorrhage. Basilar cisterns are patent. The calcified extra-axial lesion in the right temporal lobe is stable in size and appearance. There is cortical and subcortical hypoattenuation in the right temporal and parietal lobes suggestive of subacute right MCA distribution infarct. The ventricles and sulci are prominent, consistent with age-related cerebral atrophy. There is periventricular and subcortical white matter hypoattenuation. This is a nonspecific finding but is commonly due to chronic small vessel ischemic disease. Bone windows demonstrate no acute calvarial abnormality. The visualized paranasal sinuses are clear. There is limited pneumatization of the mastoid air cells. IMPRESSION: 1. There is a new finding of a subacute right MCA distribution infarct. 2. No acute hemorrhage. 3. Age-related cerebral atrophy and advanced subcortical and periventricular white matter changes of chronic small vessel ischemic disease. 4. Stable size and appearance of right temporal lobe calcified meningioma. Electronically signed by: Amarjit Grimes MD (05/24/2017 6:38 PM) [facility]
[2017-05-24 18:50] LABS: CALCIUM 8.8 mg/dL (8.5-10.1); CREATININE 1.5 mg/dL (0.7-1.3); GFR 54.9; POTASSIUM 4.2 mmol/L (3.5-5.1)
[2017-05-24 18:57] LABS: ALBUMIN 3.5 g/dL (3.4-5.0); TOTAL BILIRUBIN 0.3 mg/dL (0.2-1.0); TOTAL PROTEIN 6.9 g/dL (6.4-8.2)
[2017-05-24 19:41] LABS: ANISOCYTOSIS SLIGHT; OVALOCYTES FEW; PLT ESTIMATE ADEQUATE (ADEQUATE); POIKILOCYTOSIS SLIGHT
[2017-05-24] MEDS ORDERED: VANCOMYCIN 1.75 GM in IV NORMAL SALINE 500ML BAG 500 ML IV ONE (20:30)
[2017-05-24] MEDS ORDERED: PIPERACILLIN/TAZOBACTAM 4.5 GM in IV DEXTROSE 5% 100 ML IV ONE (20:30)
[2017-05-24] MEDS ORDERED: ONDANSETRON PF 4 MG/2 ML VIAL. IV PRN (20:30)
[2017-05-24] MEDS ORDERED: MORPHINE SULFATE 2 MG/ML DISP.SYRIN. IV PRN (20:30)
[2017-05-24] MEDS ORDERED: ACETAMINOPHEN 325 MG TABLET. PO PRN (20:30)
[2017-05-24] MEDS ORDERED: PIPERACILLIN/TAZO IV Push 4.5 GM VIAL. IVP ONE (21:00)
[2017-05-24] MEDS ORDERED: IV NORMAL SALINE 1000ML BAG 1,000 ML IV ONE (21:00)
[2017-05-24] MEDS ORDERED: VANCOMYCIN 2 GM in IV DEXTROSE 5 %-0.2 % NACL 500 ML IV ONE (21:00)
[2017-05-24 21:24] LABS: HCO3 ABG 20 mmol/L (21-28); PCO2 ABG 35 mmHg (35-46); PO2 ABG 71 mmHg (65-108); SAT O2 ABG 93 % (92-99)
[2017-05-24 21:28] LABS: PH ABG 7.38 (7.35-7.45)
[2017-05-24] MEDS ORDERED: FERR-26 PO (22:36)
[2017-05-24] MEDS ORDERED: ASPI-482 PO (22:36)
[2017-05-24] MEDS ORDERED: METO25TA4 PO (22:36)
[2017-05-24] MEDS ORDERED: LOSA50TA6 PO (22:36)
[2017-05-24] MEDS ORDERED: IPRA3AMP NEB (22:36)
[2017-05-24] MEDS ORDERED: ATOR20TA58 PO (22:36)
[2017-05-24] MEDS ORDERED: LINA72CA PO (22:36)
[2017-05-24] MEDS ORDERED: LORA10TA3 PO (22:36)
[2017-05-24 23:42] VITALS: BP 143/95
[2017-05-25] MEDS: IV NORMAL SALINE 1000ML BAG 1,000 ML IV SCH ×4 (00:30→14:43)
[2017-05-25] MEDS ORDERED: PNEUMOCOCCAL VAX SCREEN BY RX. MC PRN (03:30)
[2017-05-25] MEDS ORDERED: INFLUENZA VAX SCREEN BY RX. MC PRN (03:30)
[2017-05-25 03:48] VITALS: BP 151/78
[2017-05-25 04:48] LABS: BASO % 0 % (0-3); EOS % 0 % (0-3); HEMATOCRIT 36.2 % (39.0-53.0); HEMOGLOBIN 11.3 g/dL (13.0-17.5); LYMPH # 1.4 x10^3/uL (1.0-4.8); LYMPH % 12 % (24-48); MEAN CORPUSCULAR HEMOGLOBIN 25 pg (25-35); MEAN CORPUSCULAR HGB CONC 31 g/dL (31-37); MEAN CORPUSCULAR VOLUME 81 fL (79-100); MONO % 4 % (0-9); NEUT % 84 % (31-73); PLATELET COUNT 257 x10^3/uL (140-400); RED BLOOD COUNT 4.47 x10^6/uL (4.30-5.70); RED CELL DISTRIBUTION WIDTH 18.9 % (11.5-14.5)
[2017-05-25 04:57] LABS: CALCIUM 8.5 mg/dL (8.5-10.1); CREATININE 1.3 mg/dL (0.7-1.3); GFR 64.8; POTASSIUM 3.9 mmol/L (3.5-5.1)
[2017-05-25 07:00] VITALS: BP 136/74
--- NOTE | 2017-05-25 08:19 | RAD ---
Examination: Single frontal view chest History: History of cough, altered mental status Comparison: 02/23/2017 Findings: Low lung volumes and technique accentuates heart size and pulmonary vascularity. Linear scarring or posttreatment changes identified in the left midlung zone. Irregularity of the right fifth rib grossly similar to prior exam. Impression: Linear left midlung zone airspace opacity likely atelectasis or posttreatment changes or scarring.
[2017-05-25 11:00] VITALS: BP 140/68
[2017-05-25] MEDS ORDERED: ACETAMINOPHEN 325 MG TABLET. PO PRN (12:45)
[2017-05-25] MEDS ORDERED: ACETAMINOPHEN 650 MG SUPP.RECT. PR PRN (12:45)
--- NOTE | 2017-05-25 13:01 | PDOC2 ---
NEUROLOGY CONSULT Date of Admission Date of Admission DATE: 05/25/17 TIME: 12:48 Reason for Consult Reason for Consult: Altered mental status and abnormal head CT Referring Physician Referring Physician: Dr. Brown Source Source: Chart review, Patient History of Present Illness History of Present Illness The patient is a 76-year-old right-handed male who presents from [facility] with increased confusion and urinary incontinence. He is unable to give much of a history but denies any prior history of stroke, seizure, or head injury. He does not notice any weakness or numbness. Seizures are listed in the nursing history, the patient is not on anticonvulsants Past Medical History Cardiovascular: CHF, HTN, LA (NSTEMI), Hyperlipidemia Pulmonary: Other (tuberculosis) CENTRAL NERVOUS SYSTEM: Seizure (listed in nursing history) GI: GERD, Other (colonic polyps) Heme/Onc: Cancer (lung with brain metastases) Psych: Depression Musculoskeletal: low back pain, Osteoarthritis Renal/: Chronic renal insuff, UTI, Benign prostatic enlarg., Other (urinary retention) Endocrine: Diabetes Past Surgical History Past Surgical History: Other (right rib removed, right shoulder) Family History Family History: Cancer Social History Social History Quit smoking, no alcohol, [facility] resident Current Medications Current Medications Current Medications Sodium Chloride 500 ml @ 500 mls/hr 1X ONCE IV Last administered on 18:55; Start 05/24/17 at 18:15; Stop 05/24/17 at 19:14; Status DC Sodium Chloride 1,000 ml @ 1,000 mls/hr 1X ONCE IV Last administered on 05/24 20:51; Start 05/24/17 at 21:00; Stop 05/24/17 at 21:59; Status DC Vancomycin HCl 1.75 gm/Sodium Chloride 500 ml @ 250 mls/hr 1X ONCE IV ; Start 05/24/17 at 20:30; Stop 05/24/17 at 20:30; Status DC Piperacillin Sod/ Tazobactam Sod 4.5 gm/Dextrose 100 ml @ 200 mls/hr 1X ONCE IV ; Start 05/24/17 at 20:30; Stop 05/24/17 at 20:30; Status DC Piperacillin Sod/ Tazobactam Sod (Zosyn) 4.5 gm 1X ONCE IVP Last administered on 05/24/17 20:51; Start 05/24/17 at 21:00; Stop 05/24/17 at 21:01; Status DC Ondansetron HCl (Zofran) 4 mg PRN Q8HRS PRN IV NAUSEA/VOMITING; Start at 20:30; Stop 05/25/17 at 20:29 Morphine Sulfate 2 mg PRN Q2HR PRN IV PAIN; Start 05/24/17 at 20:30; Stop at 20:29 Sodium Chloride 1,000 ml @ 150 mls/hr Q6H40M IV Last administered on 08:03; Start 05/24/17 at 20:24; Stop 05/25/17 at 20:23 Acetaminophen (Tylenol) 650 mg PRN Q4HRS PRN PO FEVER; Start 05/24/17 at 20:30 ; Stop 05/25/17 at 20:29 Vancomycin HCl 2 gm/Dextrose/ Sodium Chloride 500 ml @ 250 mls/hr 1X ONCE IV Last administered on 05/24/17 20:52; Start 05/24/17 at 21:00; Stop 05/24/17 at 22:59; Status DC Info (Do NOT chart on this placeholder) 1 each PRN DAILY PRN [facility] UNABLE TO RESPOND; Start 05/25/17 at 03:30 Pneumococcal Polyvalent Vaccine (Do NOT chart on this placeholder) 1 each PRN DAILY PRN [facility] UNABLE TO RESPOND; Start 05/25/17 at 03:30 Active Scripts Active Reported Metoprolol Tartrate 25 Mg Tablet 25 Mg PO BID Losartan Potassium 50 Mg Tablet 50 Mg PO DAILY Linzess (Linaclotide) 72 Mcg Capsule 72 Mcg PO DAILY Ferrous Sulfate 325 Mg Tablet 325 Mg PO BID Duoneb 0.5-3(2.5) Mg/3 Ml (Albuterol/Ipratropium) 3 Ml Ampul.neb 3 Ml NEB Q4HRS PRN Loratadine 10 Mg Tablet 10 Mg PO DAILY Atorvastatin Calcium 20 Mg Tablet 20 Mg PO HS Aspir 81 (Aspirin) 81 Mg Tablet.dr 81 Mg PO DAILY Zofran (Ondansetron Hcl) 4 Mg Tablet 1 Tab PO PRN Q6-8HRS Prozac (Fluoxetine Hcl) 20 Mg Capsule 20 Mg PO DAILY Metformin Hcl 500 Mg Tablet 500 Mg PO BIDWMEALS Keppra (Levetiracetam) 500 Mg Tablet 750 Mg PO BID Famotidine 20 Mg Tablet 20 Mg PO BID Dexamethasone 4 Mg Tablet 2 Tab PO DAILY Tamsulosin Hcl 0.4 Mg Cap.er.24h 0.4 Mg PO HS Hydrocodone-Apap 7.5-325 (Hydrocodone Bit/Acetaminophen) 1 Each Tablet 1 Each PO EVERY 4 HOURS Fish Oil 1,200 Mg Softgel ([place]-3 Fatty Acids/Fish Oil) 1 Each Capsule 1 Each PO DAILY Allergies Allergies: Coded Allergies: codeine (Verified Allergy, Intermediate, RASH, ITCH, 05/10/15) ROS Review of System Patient denies fevers, chills, weight loss, dyspnea, angina, abdominal pain, change in bowels, or dysuria. 14 point review of systems is negative. Physical Exam Physical Examination PHYSICAL EXAMINATION: Vital signs: see above. General appearance is normal and in no acute distress. HEENT: Normocephalic and nontraumatic. Eyes, nose, ears, and throat are unremarkable. Neck is supple. No lymphadenopathy. No bruits are heard over the carotid artery. No crepitus. NEUROLOGICAL EXAMINATION: Mental Status Examination: Alert. Oriented only to person. Answers questions and follows commends. Pupils are equal round and reactive to light and accommodation. Extraocular movements are intact. Visual field exam shows no defect on the direct confrontation. No motor or sensory deficits on the facial exam. Uvula in the midline and the soft palate elevated symmetrically. No deviation of the tongue to any direction. Gross hearing is normal. Shoulder shrug normal. Muscle tone is normal. Muscle strength is 4/5. Deep tendon reflexes are 2+ all around. Plantar reflex is with flexion response bilaterally. [id number] test performance is accurate. Alternative movements are accurate. Gait not tested. Sensory exam shows no deficits. No cerebellar signs are elicited. Vitals VITALS Vital Signs Date Time Temp Pulse Resp B/P (MAP) Pulse Ox O2 Delivery O2 Flow Rate FiO2 05/25/17 11:00 98.1 80 16 140/68 (92) 96 Room Air 98.1 Labs Labs Laboratory Tests Test 05/24/17 18:10 05/24/17 18:20 05/24/17 19:20 05/24/17 21:15 Urine Collection Type Unknown Urine Color Yellow Urine Clarity Clear Urine pH 5.5 Urine Specific [place] 1.010 Urine Protein Negative mg/dL (NEG-TRACE) Urine Glucose (UA) Negative mg/dL (NEG) Urine Ketones (Stick) Negative mg/dL (NEG) Urine Blood Negative (NEG) Urine Nitrite Negative (NEG) Urine Bilirubin Negative (NEG) Urine Urobilinogen Dipstick 0.2 mg/dL (0.2 mg/dL) Urine Leukocyte Esterase Negative (NEG) Urine RBC 0 /HPF (0-2) Urine WBC 0 /HPF (0-4) Urine Bacteria 0 /HPF (0-FEW) Urine Hyaline Casts Moderate /HPF Urine Mucus Mod /LPF White Blood Count 12.3 x10^3/uL (4.0-11.0) Red Blood Count 4.41 x10^6/uL (4.30-5.70) Hemoglobin 11.1 g/dL (13.0-17.5) Hematocrit 35.3 % (39.0-53.0) Mean Corpuscular Volume 80 fL (79-100) Mean Corpuscular Hemoglobin 25 pg (25-35) Mean Corpuscular Hemoglobin Concent 32 g/dL (31-37) Red Cell Distribution Width 19.1 % (11.5-14.5) Platelet Count 237 x10^3/uL (140-400) Neutrophils (%) (Auto) 90 % (31-73) Lymphocytes (%) (Auto) 8 % (24-48) Monocytes (%) (Auto) 2 % (0-9) Eosinophils (%) (Auto) 0 % (0-3) Basophils (%) (Auto) 1 % (0-3) Neutrophils # (Auto) 11.0 x10^3uL (1.8-7.7) Lymphocytes # (Auto) 1.0 x10^3/uL (1.0-4.8) Monocytes # (Auto) 0.2 x10^3/uL (0.0-1.1) Eosinophils # (Auto) 0.0 x10^3/uL (0.0-0.7) Basophils # (Auto) 0.1 x10^3/uL (0.0-0.2) Segmented Neutrophils % 88 % (35-66) Band Neutrophils % 2 % (0-9) Lymphocytes % 7 % (24-48) Monocytes % 3 % (0-10) Platelet Estimate Adequate (ADEQUATE) Poikilocytosis Slight Anisocytosis Slight Ovalocytes Few Sodium Level 140 mmol/L (136-145) Potassium Level 4.2 mmol/L (3.5-5.1) Chloride Level 103 mmol/L (98-107) Carbon Dioxide Level 23 mmol/L (21-32) Anion Gap 14 (6-14) Blood Urea Nitrogen 20 mg/dL (8-26) Creatinine 1.5 mg/dL (0.7-1.3) Estimated GFR (Cockcroft-Gault) 54.9 BUN/Creatinine Ratio 13 (6-20) Glucose Level 158 mg/dL (70-99) Lactic Acid Level 3.0 mmol/L (0.4-2.0) 2.8 mmol/L (0.4-2.0) Calcium Level 8.8 mg/dL (8.5-10.1) Total Bilirubin 0.3 mg/dL (0.2-1.0) Aspartate Amino Transf (AST/SGOT) 15 U/L (15-37) Alanine Aminotransferase (ALT/SGPT) 13 U/L (16-63) Alkaline Phosphatase 56 U/L (46-116) Total Protein 6.9 g/dL (6.4-8.2) Albumin 3.5 g/dL (3.4-5.0) Albumin/Globulin Ratio 1.0 (1.0-1.7) O2 Saturation 93 % (92-99) Arterial Blood pH 7.38 (7.35-7.45) Arterial Blood pCO2 at Patient Temp 35 mmHg (35-46) Arterial Blood pO2 at Patient Temp 71 mmHg (65-108) Arterial Blood HCO3 20 mmol/L (21-28) Arterial Blood Base Excess -5 mmol/L (-3-3) FiO2 21.0 Test 05/25/17 03:20 05/25/17 07:54 05/25/17 11:37 White Blood Count 12.0 x10^3/uL (4.0-11.0) Red Blood Count 4.47 x10^6/uL (4.30-5.70) Hemoglobin 11.3 g/dL (13.0-17.5) Hematocrit 36.2 % (39.0-53.0) Mean Corpuscular Volume 81 fL (79-100) Mean Corpuscular Hemoglobin 25 pg (25-35) Mean Corpuscular Hemoglobin Concent 31 g/dL (31-37) Red Cell Distribution Width 18.9 % (11.5-14.5) Platelet Count 257 x10^3/uL (140-400) Neutrophils (%) (Auto) 84 % (31-73) Lymphocytes (%) (Auto) 12 % (24-48) Monocytes (%) (Auto) 4 % (0-9) Eosinophils (%) (Auto) 0 % (0-3) Basophils (%) (Auto) 0 % (0-3) Neutrophils # (Auto) 10.1 x10^3uL (1.8-7.7) Lymphocytes # (Auto) 1.4 x10^3/uL (1.0-4.8) Monocytes # (Auto) 0.5 x10^3/uL (0.0-1.1) Eosinophils # (Auto) 0.0 x10^3/uL (0.0-0.7) Basophils # (Auto) 0.0 x10^3/uL (0.0-0.2) Sodium Level 146 mmol/L (136-145) Potassium Level 3.9 mmol/L (3.5-5.1) Chloride Level 110 mmol/L (98-107) Carbon Dioxide Level 26 mmol/L (21-32) Anion Gap 10 (6-14) Blood Urea Nitrogen 15 mg/dL (8-26) Creatinine 1.3 mg/dL (0.7-1.3) Estimated GFR (Cockcroft-Gault) 64.8 Glucose Level 107 mg/dL (70-99) Lactic Acid Level 2.0 mmol/L (0.4-2.0) Calcium Level 8.5 mg/dL (8.5-10.1) Glucose (Fingerstick) 64 mg/dL (70-99) 82 mg/dL (70-99) Laboratory Tests Test 05/24/17 18:10 05/24/17 18:20 05/24/17 19:20 05/24/17 21:15 Urine Collection Type Unknown Urine Color Yellow Urine Clarity Clear Urine pH 5.5 Urine Specific [place] 1.010 Urine Protein Negative mg/dL (NEG-TRACE) Urine Glucose (UA) Negative mg/dL (NEG) Urine Ketones (Stick) Negative mg/dL (NEG) Urine Blood Negative (NEG) Urine Nitrite Negative (NEG) Urine Bilirubin Negative (NEG) Urine Urobilinogen Dipstick 0.2 mg/dL (0.2 mg/dL) Urine Leukocyte Esterase Negative (NEG) Urine RBC 0 /HPF (0-2) Urine WBC 0 /HPF (0-4) Urine Bacteria 0 /HPF (0-FEW) Urine Hyaline Casts Moderate /HPF Urine Mucus Mod /LPF White Blood Count 12.3 x10^3/uL (4.0-11.0) Red Blood Count 4.41 x10^6/uL (4.30-5.70) Hemoglobin 11.1 g/dL (13.0-17.5) Hematocrit 35.3 % (39.0-53.0) Mean Corpuscular Volume 80 fL (79-100) Mean Corpuscular Hemoglobin 25 pg (25-35) Mean Corpuscular Hemoglobin Concent 32 g/dL (31-37) Red Cell Distribution Width 19.1 % (11.5-14.5) Platelet Count 237 x10^3/uL (140-400) Neutrophils (%) (Auto) 90 % (31-73) Lymphocytes (%) (Auto) 8 % (24-48) Monocytes (%) (Auto) 2 % (0-9) Eosinophils (%) (Auto) 0 % (0-3) Basophils (%) (Auto) 1 % (0-3) Neutrophils # (Auto) 11.0 x10^3uL (1.8-7.7) Lymphocytes # (Auto) 1.0 x10^3/uL (1.0-4.8) Monocytes # (Auto) 0.2 x10^3/uL (0.0-1.1) Eosinophils # (Auto) 0.0 x10^3/uL (0.0-0.7) Basophils # (Auto) 0.1 x10^3/uL (0.0-0.2) Segmented Neutrophils % 88 % (35-66) Band Neutrophils % 2 % (0-9) Lymphocytes % 7 % (24-48) Monocytes % 3 % (0-10) Platelet Estimate Adequate (ADEQUATE) Poikilocytosis Slight Anisocytosis Slight Ovalocytes Few Sodium Level 140 mmol/L (136-145) Potassium Level 4.2 mmol/L (3.5-5.1) Chloride Level 103 mmol/L (98-107) Carbon Dioxide Level 23 mmol/L (21-32) Anion Gap 14 (6-14) Blood Urea Nitrogen 20 mg/dL (8-26) Creatinine 1.5 mg/dL (0.7-1.3) Estimated GFR (Cockcroft-Gault) 54.9 BUN/Creatinine Ratio 13 (6-20) Glucose Level 158 mg/dL (70-99) Lactic Acid Level 3.0 mmol/L (0.4-2.0) 2.8 mmol/L (0.4-2.0) Calcium Level 8.8 mg/dL (8.5-10.1) Total Bilirubin 0.3 mg/dL (0.2-1.0) Aspartate Amino Transf (AST/SGOT) 15 U/L (15-37) Alanine Aminotransferase (ALT/SGPT) 13 U/L (16-63) Alkaline Phosphatase 56 U/L (46-116) Total Protein 6.9 g/dL (6.4-8.2) Albumin 3.5 g/dL (3.4-5.0) Albumin/Globulin Ratio 1.0 (1.0-1.7) O2 Saturation 93 % (92-99) Arterial Blood pH 7.38 (7.35-7.45) Arterial Blood pCO2 at Patient Temp 35 mmHg (35-46) Arterial Blood pO2 at Patient Temp 71 mmHg (65-108) Arterial Blood HCO3 20 mmol/L (21-28) Arterial Blood Base Excess -5 mmol/L (-3-3) FiO2 21.0 Test 05/25/17 03:20 05/25/17 07:54 05/25/17 11:37 White Blood Count 12.0 x10^3/uL (4.0-11.0) Red Blood Count 4.47 x10^6/uL (4.30-5.70) Hemoglobin 11.3 g/dL (13.0-17.5) Hematocrit 36.2 % (39.0-53.0) Mean Corpuscular Volume 81 fL (79-100) Mean Corpuscular Hemoglobin 25 pg (25-35) Mean Corpuscular Hemoglobin Concent 31 g/dL (31-37) Red Cell Distribution Width 18.9 % (11.5-14.5) Platelet Count 257 x10^3/uL (140-400) Neutrophils (%) (Auto) 84 % (31-73) Lymphocytes (%) (Auto) 12 % (24-48) Monocytes (%) (Auto) 4 % (0-9) Eosinophils (%) (Auto) 0 % (0-3) Basophils (%) (Auto) 0 % (0-3) Neutrophils # (Auto) 10.1 x10^3uL (1.8-7.7) Lymphocytes # (Auto) 1.4 x10^3/uL (1.0-4.8) Monocytes # (Auto) 0.5 x10^3/uL (0.0-1.1) Eosinophils # (Auto) 0.0 x10^3/uL (0.0-0.7) Basophils # (Auto) 0.0 x10^3/uL (0.0-0.2) Sodium Level 146 mmol/L (136-145) Potassium Level 3.9 mmol/L (3.5-5.1) Chloride Level 110 mmol/L (98-107) Carbon Dioxide Level 26 mmol/L (21-32) Anion Gap 10 (6-14) Blood Urea Nitrogen 15 mg/dL (8-26) Creatinine 1.3 mg/dL (0.7-1.3) Estimated GFR (Cockcroft-Gault) 64.8 Glucose Level 107 mg/dL (70-99) Lactic Acid Level 2.0 mmol/L (0.4-2.0) Calcium Level 8.5 mg/dL (8.5-10.1) Glucose (Fingerstick) 64 mg/dL (70-99) 82 mg/dL (70-99) Images Images CT HEAD WITHOUT CONTRAST Findings: No midline shift, extra-axial fluid collection, or hemorrhage. Basilar cisterns are patent. The calcified extra-axial lesion in the right temporal lobe is stable in size and appearance. There is cortical and subcortical hypoattenuation in the right temporal and parietal lobes suggestive of subacute right MCA distribution infarct. The ventricles and sulci are prominent, consistent with age-related cerebral atrophy. There is periventricular and subcortical white matter hypoattenuation. This is a nonspecific finding but is commonly due to chronic small vessel ischemic disease. Bone windows demonstrate no acute calvarial abnormality. The visualized paranasal sinuses are clear. There is limited pneumatization of the mastoid air cells. IMPRESSION: 1. There is a new finding of a subacute right MCA distribution infarct. 2. No acute hemorrhage. 3. Age-related cerebral atrophy and advanced subcortical and periventricular white matter changes of chronic small vessel ischemic disease. 4. Stable size and appearance of right temporal lobe calcified meningioma. Assessment/Plan Assessment/Plan Impression: Altered mental status, most likely metabolic encephalopathy with evidence of sepsis syndrome, for instance. Lung cancer with metastases to the brain in the past CT of the head to my interpretation shows encephalomalacia from this known lung cancer rather than any type of new stroke. In favor of this is the fact that his examination is nonfocal Dementia Recommendations: MRI, echocardiogram, carotid Dopplers ordered for stroke workup, okay to wait until tomorrow. Debilitation modalities Treat possible sepsis, note patient has been started on antibiotics. Aspirin Further recommendations depending on the results of the workup. Thank you for letting me help with the patient's care. JESSICA HODGES MD May 25, 2017 13:01
[2017-05-25] MEDS: ASPIRIN CHEWABLE 81 MG TABLET. PO SCH (13:25)
[2017-05-25 14:35] VITALS: BP 132/60
--- NOTE | 2017-05-25 15:01 | PDOC1 ---
History and Physical Date of Admission Date of Admission 05/25/17 Identification/Chief Complaint Chief Complaint change MS Problems: Source Source: Chart review, Patient History of Present Illness History of Present Illness Patient is a 76 year old male who presents from a shelter with a history onset today of increased confusion and urinary incontinence; no fever nausea vomiting diarrhea no cough no chest pain no headache or blurry vision; no recent history of falls or injury to head. Patient has a history of extensive medical issues including lung cancer NSTEMI CHF diabetes . Patient is DNR he is poor historian , disoriented to time and place Past Medical History Cardiovascular: CHF, HTN, MD (NSTEMI), Hyperlipidemia Pulmonary: Other (tuberculosis) CENTRAL NERVOUS SYSTEM: Seizure (listed in nursing history) GI: GERD, Other (colonic polyps) Heme/Onc: Cancer (lung with brain metastases) Hepatobiliary: No pertinent hx Psych: Depression Rheumatologic: No pertinent hx Infectious disease: No pertinent hx Renal/: Chronic renal insuff, UTI, Benign prostatic enlarg., Other (urinary retention) Endocrine: Diabetes Past Surgical History Past Surgical History: Other (right rib removed, right shoulder) Family History Family History: Hypertension Social History Smoke: Quit ALCOHOL: none Drugs: None Current Problem List Problem List Problems Medical Problems: (1) Altered mental status Status: Acute (2) Lactic acidosis Status: Acute (3) Leukocytosis Status: Acute Current Medications Current Medications Current Medications Medications (Trade) Dose Ordered Sig/Fanny Start Time Stop Time Status Last Admin Dose Admin Acetaminophen (Acetaminophen Supp) 650 mg PRN Q4HRS PRN 05/25/17 12:45 Acetaminophen (Tylenol) 650 mg PRN Q6HRS PRN 05/25/17 12:45 Aspirin (Children'S Aspirin) 81 mg [id number] 05/25/17 13:00 05/25/17 13:25 81 MG Info (Do NOT chart on this placeholder) 1 each PRN DAILY PRN 05/25/17 03:30 Morphine Sulfate 2 mg PRN Q2HR PRN 05/24/17 20:30 05/25/17 20:29 Ondansetron HCl (Zofran) 4 mg PRN Q8HRS PRN 05/24/17 20:30 05/25/17 20:29 Piperacillin Sod/ Tazobactam Sod (Zosyn) 4.5 gm 1X ONCE 05/24/17 21:00 05/24/17 21:01 DC 05/24/17 20:51 4.5 GM Piperacillin Sod/ Tazobactam Sod 4.5 gm/Dextrose 100 ml @ 200 mls/hr 1X ONCE 05/24/17 20:30 05/24/17 20:30 DC Pneumococcal Polyvalent Vaccine (Do NOT chart on this placeholder) 1 each PRN DAILY PRN 05/25/17 03:30 Sodium Chloride 1,000 ml @ 150 mls/hr Q6H40M 05/24/17 20:24 05/25/17 20:23 05/25/17 14:43 150 MLS/HR Vancomycin HCl 1.75 gm/Sodium Chloride 500 ml @ 250 mls/hr 1X ONCE 05/24/17 20:30 05/24/17 20:30 DC Vancomycin HCl 2 gm/Dextrose/ Sodium Chloride 500 ml @ 250 mls/hr 1X ONCE 05/24/17 21:00 05/24/17 22:59 DC 05/24/17 20:52 250 MLS/HR Allergies Allergies Allergies Coded Allergies Type Severity Reaction Last Updated Verified codeine Allergy Intermediate RASH, ITCH 05/10/15 Yes ROS Review of System CONSTITUTIONAL: No fever or chills EYES: No recent changes SKIN: No rash or itching CARDIOVASCULAR: No chest pain, syncope, palpitations, or edema RESPIRATORY: No SOB or cough GASTROINTESTINAL: No nausea, vomiting or abdominal pain NEUROLOGICAL: No headaches + general weakness ENDOCRINE: No cold or heat intolerance GENITOURINARY: No urgency or frequency of urination MUSCULOSKELETAL: No back pain or joint pain Physical Exam Physical Exam disoriented to time and place HEENT: Head is normocephalic, atraumatic NECK: Supple. LUNGS: decrease BS bilaterally HEART: RRR, S1, S2 present. Peripheral pulses intact ABDOMEN: Soft, nontender. Positive bowel sounds. EXTREMITIES: Without any cyanosis. NEUROLOGIC: Normal speech, no focal deficit SKIN: No ulcerations Vitals Vitals Vital Signs Date Time Temp Pulse Resp B/P (MAP) Pulse Ox O2 Delivery O2 Flow Rate FiO2 05/25/17 14:35 97.9 78 16 132/60 (84) 96 97.9 05/25/17 11:00 Room Air Labs Labs Laboratory Tests Test 05/24/17 18:10 05/24/17 18:20 05/24/17 19:20 05/24/17 21:15 Urine Collection Type Unknown Urine Color Yellow Urine Clarity Clear Urine pH 5.5 Urine Specific [place] 1.010 Urine Protein Negative mg/dL (NEG-TRACE) Urine Glucose (UA) Negative mg/dL (NEG) Urine Ketones (Stick) Negative mg/dL (NEG) Urine Blood Negative (NEG) Urine Nitrite Negative (NEG) Urine Bilirubin Negative (NEG) Urine Urobilinogen Dipstick 0.2 mg/dL (0.2 mg/dL) Urine Leukocyte Esterase Negative (NEG) Urine RBC 0 /HPF (0-2) Urine WBC 0 /HPF (0-4) Urine Bacteria 0 /HPF (0-FEW) Urine Hyaline Casts Moderate /HPF Urine Mucus Mod /LPF White Blood Count 12.3 x10^3/uL (4.0-11.0) Red Blood Count 4.41 x10^6/uL (4.30-5.70) Hemoglobin 11.1 g/dL (13.0-17.5) Hematocrit 35.3 % (39.0-53.0) Mean Corpuscular Volume 80 fL (79-100) Mean Corpuscular Hemoglobin 25 pg (25-35) Mean Corpuscular Hemoglobin Concent 32 g/dL (31-37) Red Cell Distribution Width 19.1 % (11.5-14.5) Platelet Count 237 x10^3/uL (140-400) Neutrophils (%) (Auto) 90 % (31-73) Lymphocytes (%) (Auto) 8 % (24-48) Monocytes (%) (Auto) 2 % (0-9) Eosinophils (%) (Auto) 0 % (0-3) Basophils (%) (Auto) 1 % (0-3) Neutrophils # (Auto) 11.0 x10^3uL (1.8-7.7) Lymphocytes # (Auto) 1.0 x10^3/uL (1.0-4.8) Monocytes # (Auto) 0.2 x10^3/uL (0.0-1.1) Eosinophils # (Auto) 0.0 x10^3/uL (0.0-0.7) Basophils # (Auto) 0.1 x10^3/uL (0.0-0.2) Segmented Neutrophils % 88 % (35-66) Band Neutrophils % 2 % (0-9) Lymphocytes % 7 % (24-48) Monocytes % 3 % (0-10) Platelet Estimate Adequate (ADEQUATE) Poikilocytosis Slight Anisocytosis Slight Ovalocytes Few Sodium Level 140 mmol/L (136-145) Potassium Level 4.2 mmol/L (3.5-5.1) Chloride Level 103 mmol/L (98-107) Carbon Dioxide Level 23 mmol/L (21-32) Anion Gap 14 (6-14) Blood Urea Nitrogen 20 mg/dL (8-26) Creatinine 1.5 mg/dL (0.7-1.3) Estimated GFR (Cockcroft-Gault) 54.9 BUN/Creatinine Ratio 13 (6-20) Glucose Level 158 mg/dL (70-99) Lactic Acid Level 3.0 mmol/L (0.4-2.0) 2.8 mmol/L (0.4-2.0) Calcium Level 8.8 mg/dL (8.5-10.1) Total Bilirubin 0.3 mg/dL (0.2-1.0) Aspartate Amino Transf (AST/SGOT) 15 U/L (15-37) Alanine Aminotransferase (ALT/SGPT) 13 U/L (16-63) Alkaline Phosphatase 56 U/L (46-116) Total Protein 6.9 g/dL (6.4-8.2) Albumin 3.5 g/dL (3.4-5.0) Albumin/Globulin Ratio 1.0 (1.0-1.7) O2 Saturation 93 % (92-99) Arterial Blood pH 7.38 (7.35-7.45) Arterial Blood pCO2 at Patient Temp 35 mmHg (35-46) Arterial Blood pO2 at Patient Temp 71 mmHg (65-108) Arterial Blood HCO3 20 mmol/L (21-28) Arterial Blood Base Excess -5 mmol/L (-3-3) FiO2 21.0 Test 05/25/17 03:20 05/25/17 07:54 05/25/17 11:37 White Blood Count 12.0 x10^3/uL (4.0-11.0) Red Blood Count 4.47 x10^6/uL (4.30-5.70) Hemoglobin 11.3 g/dL (13.0-17.5) Hematocrit 36.2 % (39.0-53.0) Mean Corpuscular Volume 81 fL (79-100) Mean Corpuscular Hemoglobin 25 pg (25-35) Mean Corpuscular Hemoglobin Concent 31 g/dL (31-37) Red Cell Distribution Width 18.9 % (11.5-14.5) Platelet Count 257 x10^3/uL (140-400) Neutrophils (%) (Auto) 84 % (31-73) Lymphocytes (%) (Auto) 12 % (24-48) Monocytes (%) (Auto) 4 % (0-9) Eosinophils (%) (Auto) 0 % (0-3) Basophils (%) (Auto) 0 % (0-3) Neutrophils # (Auto) 10.1 x10^3uL (1.8-7.7) Lymphocytes # (Auto) 1.4 x10^3/uL (1.0-4.8) Monocytes # (Auto) 0.5 x10^3/uL (0.0-1.1) Eosinophils # (Auto) 0.0 x10^3/uL (0.0-0.7) Basophils # (Auto) 0.0 x10^3/uL (0.0-0.2) Sodium Level 146 mmol/L (136-145) Potassium Level 3.9 mmol/L (3.5-5.1) Chloride Level 110 mmol/L (98-107) Carbon Dioxide Level 26 mmol/L (21-32) Anion Gap 10 (6-14) Blood Urea Nitrogen 15 mg/dL (8-26) Creatinine 1.3 mg/dL (0.7-1.3) Estimated GFR (Cockcroft-Gault) 64.8 Glucose Level 107 mg/dL (70-99) Lactic Acid Level 2.0 mmol/L (0.4-2.0) Calcium Level 8.5 mg/dL (8.5-10.1) Glucose (Fingerstick) 64 mg/dL (70-99) 82 mg/dL (70-99) Laboratory Tests Test 05/24/17 18:10 05/24/17 18:20 05/24/17 19:20 05/24/17 21:15 Urine Collection Type Unknown Urine Color Yellow Urine Clarity Clear Urine pH 5.5 Urine Specific [place] 1.010 Urine Protein Negative mg/dL (NEG-TRACE) Urine Glucose (UA) Negative mg/dL (NEG) Urine Ketones (Stick) Negative mg/dL (NEG) Urine Blood Negative (NEG) Urine Nitrite Negative (NEG) Urine Bilirubin Negative (NEG) Urine Urobilinogen Dipstick 0.2 mg/dL (0.2 mg/dL) Urine Leukocyte Esterase Negative (NEG) Urine RBC 0 /HPF (0-2) Urine WBC 0 /HPF (0-4) Urine Bacteria 0 /HPF (0-FEW) Urine Hyaline Casts Moderate /HPF Urine Mucus Mod /LPF White Blood Count 12.3 x10^3/uL (4.0-11.0) Red Blood Count 4.41 x10^6/uL (4.30-5.70) Hemoglobin 11.1 g/dL (13.0-17.5) Hematocrit 35.3 % (39.0-53.0) Mean Corpuscular Volume 80 fL (79-100) Mean Corpuscular Hemoglobin 25 pg (25-35) Mean Corpuscular Hemoglobin Concent 32 g/dL (31-37) Red Cell Distribution Width 19.1 % (11.5-14.5) Platelet Count 237 x10^3/uL (140-400) Neutrophils (%) (Auto) 90 % (31-73) Lymphocytes (%) (Auto) 8 % (24-48) Monocytes (%) (Auto) 2 % (0-9) Eosinophils (%) (Auto) 0 % (0-3) Basophils (%) (Auto) 1 % (0-3) Neutrophils # (Auto) 11.0 x10^3uL (1.8-7.7) Lymphocytes # (Auto) 1.0 x10^3/uL (1.0-4.8) Monocytes # (Auto) 0.2 x10^3/uL (0.0-1.1) Eosinophils # (Auto) 0.0 x10^3/uL (0.0-0.7) Basophils # (Auto) 0.1 x10^3/uL (0.0-0.2) Segmented Neutrophils % 88 % (35-66) Band Neutrophils % 2 % (0-9) Lymphocytes % 7 % (24-48) Monocytes % 3 % (0-10) Platelet Estimate Adequate (ADEQUATE) Poikilocytosis Slight Anisocytosis Slight Ovalocytes Few Sodium Level 140 mmol/L (136-145) Potassium Level 4.2 mmol/L (3.5-5.1) Chloride Level 103 mmol/L (98-107) Carbon Dioxide Level 23 mmol/L (21-32) Anion Gap 14 (6-14) Blood Urea Nitrogen 20 mg/dL (8-26) Creatinine 1.5 mg/dL (0.7-1.3) Estimated GFR (Cockcroft-Gault) 54.9 BUN/Creatinine Ratio 13 (6-20) Glucose Level 158 mg/dL (70-99) Lactic Acid Level 3.0 mmol/L (0.4-2.0) 2.8 mmol/L (0.4-2.0) Calcium Level 8.8 mg/dL (8.5-10.1) Total Bilirubin 0.3 mg/dL (0.2-1.0) Aspartate Amino Transf (AST/SGOT) 15 U/L (15-37) Alanine Aminotransferase (ALT/SGPT) 13 U/L (16-63) Alkaline Phosphatase 56 U/L (46-116) Total Protein 6.9 g/dL (6.4-8.2) Albumin 3.5 g/dL (3.4-5.0) Albumin/Globulin Ratio 1.0 (1.0-1.7) O2 Saturation 93 % (92-99) Arterial Blood pH 7.38 (7.35-7.45) Arterial Blood pCO2 at Patient Temp 35 mmHg (35-46) Arterial Blood pO2 at Patient Temp 71 mmHg (65-108) Arterial Blood HCO3 20 mmol/L (21-28) Arterial Blood Base Excess -5 mmol/L (-3-3) FiO2 21.0 Test 05/25/17 03:20 05/25/17 07:54 05/25/17 11:37 White Blood Count 12.0 x10^3/uL (4.0-11.0) Red Blood Count 4.47 x10^6/uL (4.30-5.70) Hemoglobin 11.3 g/dL (13.0-17.5) Hematocrit 36.2 % (39.0-53.0) Mean Corpuscular Volume 81 fL (79-100) Mean Corpuscular Hemoglobin 25 pg (25-35) Mean Corpuscular Hemoglobin Concent 31 g/dL (31-37) Red Cell Distribution Width 18.9 % (11.5-14.5) Platelet Count 257 x10^3/uL (140-400) Neutrophils (%) (Auto) 84 % (31-73) Lymphocytes (%) (Auto) 12 % (24-48) Monocytes (%) (Auto) 4 % (0-9) Eosinophils (%) (Auto) 0 % (0-3) Basophils (%) (Auto) 0 % (0-3) Neutrophils # (Auto) 10.1 x10^3uL (1.8-7.7) Lymphocytes # (Auto) 1.4 x10^3/uL (1.0-4.8) Monocytes # (Auto) 0.5 x10^3/uL (0.0-1.1) Eosinophils # (Auto) 0.0 x10^3/uL (0.0-0.7) Basophils # (Auto) 0.0 x10^3/uL (0.0-0.2) Sodium Level 146 mmol/L (136-145) Potassium Level 3.9 mmol/L (3.5-5.1) Chloride Level 110 mmol/L (98-107) Carbon Dioxide Level 26 mmol/L (21-32) Anion Gap 10 (6-14) Blood Urea Nitrogen 15 mg/dL (8-26) Creatinine 1.3 mg/dL (0.7-1.3) Estimated GFR (Cockcroft-Gault) 64.8 Glucose Level 107 mg/dL (70-99) Lactic Acid Level 2.0 mmol/L (0.4-2.0) Calcium Level 8.5 mg/dL (8.5-10.1) Glucose (Fingerstick) 64 mg/dL (70-99) 82 mg/dL (70-99) VTE Prophylaxis Ordered VTE Prophylaxis Devices: Yes VTE Pharmacological Prophylaxi: Yes Assessment/Plan Assessment/Plan 1-change mental status 2-possible subacute CVA vs scar from previous brain mets for MRI brain 3. diastolic heart failure. 4. History of lung cancer with metastasis to the brain, had radiation and chemo [address] [facility]. 5. Hypertension. 6. Diabetes. BS on low side , hold metformin for now 7. Adrenal insufficiency, chronic. Dr. Appl will resume care in REINIER FRIAS MD May 25, 2017 15:01
[2017-05-25] MEDS ORDERED: PIPERACILLIN/TAZOBACTAM 2.25 GM in IV DEXTROSE 5% 50 ML IV ONE (15:15)
[2017-05-25] MEDS ORDERED: HYDROcodone/APAP 7.5/325MG 1 TAB TABLET PO PRN (15:15)
[2017-05-25] MEDS ORDERED: ALBUTEROL SULFATE 2.5 MG/3 ML NEBU. NEB PRN (15:15)
[2017-05-25] MEDS: ASPIRIN ENTERIC COATED 81 MG TABLET.DR. PO SCH (15:33)
[2017-05-25] MEDS: DEXAMETHASONE 4 MG TABLET PO SCH ×2 (16:31→16:39)
[2017-05-25] MEDS: FERROUS SULFATE 325 MG TABLET. PO SCH ×2 (16:31→16:39)
[2017-05-25] MEDS: LOSARTAN POTASSIUM 50 MG TABLET. PO SCH ×2 (16:32→16:39)
[2017-05-25] MEDS: PIPERACILLIN/TAZO IV Push 3.375 GM VIAL. IVP SCH ×2 (16:33→20:31)
[2017-05-25] MEDS: ENOXAPARIN 40 MG/0.4 ML SYRINGE. SQ SCH (16:33)
[2017-05-25] MEDS: FLUoxetine HCL 20 MG CAPSULE PO SCH ×2 (16:33→16:39)
[2017-05-25 19:35] VITALS: BP 126/77
[2017-05-25] MEDS: TAMSULOSIN 0.4 MG CAP.ER.24H. PO SCH (20:32)
[2017-05-25] MEDS: levETIRAcetam 500 MG TABLET PO SCH (20:32)
[2017-05-25] MEDS: ATORVASTATIN CALCIUM 20 MG TABLET PO SCH (20:32)
[2017-05-25] MEDS: METOPROLOL TART IMMED RELEASE 25 MG TABLET. PO SCH (20:32)
[2017-05-25] MEDS: FAMOTIDINE 20 MG TABLET. PO SCH (21:00)
[2017-05-26 02:56] VITALS: BP 129/65
[2017-05-26] MEDS: PIPERACILLIN/TAZO IV Push 3.375 GM VIAL. IVP SCH (06:06)
[2017-05-26 07:00] VITALS: BP 137/80
[2017-05-26] MEDS: ASPIRIN CHEWABLE 81 MG TABLET. PO SCH (07:04)
[2017-05-26] MEDS: FERROUS SULFATE 325 MG TABLET. PO SCH ×2 (07:04→11:14)
[2017-05-26] MEDS: LOSARTAN POTASSIUM 50 MG TABLET. PO SCH (07:04)
[2017-05-26] MEDS: levETIRAcetam 500 MG TABLET PO SCH ×2 (07:05→09:37)
[2017-05-26] MEDS: METOPROLOL TART IMMED RELEASE 25 MG TABLET. PO SCH ×2 (07:05→20:43)
[2017-05-26] MEDS: DEXAMETHASONE 4 MG TABLET PO SCH (07:05)
[2017-05-26] MEDS: ASPIRIN ENTERIC COATED 81 MG TABLET.DR. PO SCH (07:05)
[2017-05-26] MEDS: FAMOTIDINE 20 MG TABLET. PO SCH ×2 (07:06→20:43)
[2017-05-26] MEDS: FLUoxetine HCL 20 MG CAPSULE PO SCH (07:06)
--- NOTE | 2017-05-26 07:16 | RAD ---
Carotid ultrasound, 05/26/2017: History: CVA Duplex evaluation of the carotid arteries in neck was performed including grayscale, color-flow and spectral Doppler analysis. There is only minimal intimal thickening bilaterally. No prominent plaque formation is seen. The peak systolic velocity in the right internal carotid artery is 24 cm/s with an end-diastolic velocity of 8 cm/s. The peak systolic velocity in the left internal carotid artery is 33 cm per sec with an end-diastolic velocity of 14 cm/s. There is no duplex evidence of hemodynamically significant stenosis. Antegrade flow is present in both vertebral arteries in the neck. IMPRESSION: No duplex evidence of significant carotid stenosis in the neck. Note: Stenosis calculations for CTA, MRA and conventional angiography are based upon determination of the distal ICA diameter in accordance with the NASCET methodology. Stenosis calculations for Doppler studies are derived from validated velocity criteria which are known to correlate with NASCET methodology of determining stenosis.
--- NOTE | 2017-05-26 08:44 | PDOC ---
GENERAL General: vss and afebrile. awake and alert and still some confusion but decreased from admit. ct head with subacute left MCA distribution cva which is likely cause of change in mental status. blood cultures negative to date and lactic acid has returned to normal. chest clear, heart regular, and abdomen benign. will continue antibiotics and await MRI, etc. carotid dopplers are normal. Problems: VITAL SIGNS Vital Signs: Vital Signs Date Time Temp Pulse Resp B/P (MAP) Pulse Ox O2 Delivery O2 Flow Rate FiO2 05/26/17 08:00 Room Air 05/26/17 02:56 97.6 59 16 129/65 (86) 96 97.6 I & O I & O Intake and Output 05/26/17 07:00 Intake Total 680 ml Balance 680 ml Intake Oral 680 ml # Voids 3 ALLERGIES Allergies: Allergies Coded Allergies Type Severity Reaction Last Updated Verified codeine Allergy Intermediate RASH, ITCH 05/10/15 Yes MEDS Medications: Current Medications Medications (Trade) Dose Ordered Sig/Fanny Start Time Stop Time Status Last Admin Dose Admin Acetaminophen (Acetaminophen Supp) 650 mg PRN Q4HRS PRN 05/25/17 12:45 Acetaminophen (Tylenol) 650 mg PRN Q6HRS PRN 05/25/17 12:45 Acetaminophen/ Hydrocodone Bitart (Lortab 7.5/325) 1 tab PRN Q4HRS PRN 05/25/17 15:15 Albuterol Sulfate (Ventolin Neb Soln) 3 mg PRN Q4HRS PRN 05/25/17 15:15 Aspirin (Children'S Aspirin) 81 mg [id number] 05/25/17 13:00 05/25/17 13:25 81 MG Aspirin (Ecotrin) 81 mg DAILY 05/25/17 17:00 Atorvastatin Calcium (Lipitor) 20 mg HS 05/25/17 21:00 05/25/17 20:32 20 MG Dexamethasone (Decadron) 8 mg DAILY 05/25/17 17:00 Enoxaparin Sodium (Lovenox 40mg Syringe) 30 mg Q24H 05/25/17 17:00 Famotidine (Pepcid) 20 mg BID 05/25/17 21:00 05/25/17 21:00 20 MG Ferrous Sulfate (Feosol) 325 mg BIDWMEALS 05/25/17 17:00 Fluoxetine HCl (PROzac) 20 mg DAILY 05/25/17 17:00 Info (Do NOT chart on this placeholder) 1 each PRN DAILY PRN 05/25/17 03:30 Levetiracetam (Keppra) 750 mg BID 05/25/17 21:00 05/25/17 20:32 750 MG Losartan Potassium (Cozaar) 50 mg DAILY 05/25/17 17:00 Metoprolol Tartrate (Lopressor) 25 mg BID 05/25/17 21:00 05/25/17 20:32 25 MG Morphine Sulfate 2 mg PRN Q2HR PRN 05/24/17 20:30 05/25/17 20:29 DC Ondansetron HCl (Zofran) 4 mg PRN Q8HRS PRN 05/24/17 20:30 05/25/17 20:29 DC Piperacillin Sod/ Tazobactam Sod (Zosyn) 3.375 gm Q6HRS 05/25/17 16:30 05/26/17 06:06 3.375 GM Piperacillin Sod/ Tazobactam Sod 2.25 gm/Dextrose 50 ml @ 100 mls/hr 1X ONCE 05/25/17 15:15 05/25/17 15:49 DC Piperacillin Sod/ Tazobactam Sod 4.5 gm/Dextrose 100 ml @ 200 mls/hr 1X ONCE 05/24/17 20:30 05/24/17 20:30 DC Pneumococcal Polyvalent Vaccine (Do NOT chart on this placeholder) 1 each PRN DAILY PRN 05/25/17 03:30 Sodium Chloride 1,000 ml @ 150 mls/hr Q6H40M 05/24/17 20:24 05/25/17 20:23 DC 05/25/17 14:43 150 MLS/HR Tamsulosin HCl (Flomax) 0.4 mg HS 05/25/17 21:00 05/25/17 20:32 0.4 MG Vancomycin HCl 1.75 gm/Sodium Chloride 500 ml @ 250 mls/hr 1X ONCE 05/24/17 20:30 05/24/17 20:30 DC Vancomycin HCl 2 gm/Dextrose/ Sodium Chloride 500 ml @ 250 mls/hr 1X ONCE 05/24/17 21:00 05/24/17 22:59 DC 05/24/17 20:52 250 MLS/HR LAB Lab: Laboratory Tests Test 05/25/17 11:37 05/25/17 20:34 05/26/17 08:33 Glucose (Fingerstick) 82 mg/dL (70-99) 91 mg/dL (70-99) 50 mg/dL (70-99) ELMA GUERRA MD May 26, 2017 08:44
[2017-05-26] MEDS: DEXTROSE 50% 25 GM / 50ML DISP.SYRIN. IV PRN ×2 (09:22→09:26)
[2017-05-26] MEDS: LACTOBACILLUS RHAMNOSUS GG 1 CAPSULE. PO SCH ×2 (09:38→20:41)
--- NOTE | 2017-05-26 10:16 | PDOC ---
PROGRESS NOTES Assessment Problems Medical Problems: (1) Altered mental status Status: Acute (2) Lactic acidosis Status: Acute (3) Leukocytosis Status: Acute Altered mental status, most likely metabolic encephalopathy with evidence of sepsis syndrome, for instance. Lung cancer with metastases to the brain in the past CT of the head to my interpretation shows encephalomalacia from this known lung cancer rather than any type of new stroke. In favor of this is the fact that his examination is nonfocal Dementia Plan Await MRI and echocardiogram Rehabilitation modalities Treat possible sepsis, note patient has been started on antibiotics. Aspirin Further recommendations depending on the results of the workup. Subjective No complaints Objective Vital Signs Date Time Temp Pulse Resp B/P (MAP) Pulse Ox O2 Delivery O2 Flow Rate FiO2 05/26/17 08:00 Room Air 05/26/17 02:56 97.6 59 16 129/65 (86) 96 97.6 Intake and Output 05/26/17 07:00 Intake Total 680 ml Balance 680 ml Intake Oral 680 ml # Voids 3 PHYSICAL EXAM Alert. Thinks he's at [place], does not know the month or year PERRL. EOMI. CN: no focal findings. Muscle tone: normal. Muscle strength: 4/5 DTR: 1+ Plantar reflex: flexor Gait: not examined in bed. Sensory exam: no abnormal findings. No cerebellar signs elicited. Review of Relevant I have reviewed the following items tereza (where applicable) has been applied. Labs Laboratory Tests Test 05/24/17 18:10 05/24/17 18:20 05/24/17 19:20 05/24/17 21:15 Urine Collection Type Unknown Urine Color Yellow Urine Clarity Clear Urine pH 5.5 Urine Specific [place] 1.010 Urine Protein Negative mg/dL (NEG-TRACE) Urine Glucose (UA) Negative mg/dL (NEG) Urine Ketones (Stick) Negative mg/dL (NEG) Urine Blood Negative (NEG) Urine Nitrite Negative (NEG) Urine Bilirubin Negative (NEG) Urine Urobilinogen Dipstick 0.2 mg/dL (0.2 mg/dL) Urine Leukocyte Esterase Negative (NEG) Urine RBC 0 /HPF (0-2) Urine WBC 0 /HPF (0-4) Urine Bacteria 0 /HPF (0-FEW) Urine Hyaline Casts Moderate /HPF Urine Mucus Mod /LPF White Blood Count 12.3 x10^3/uL (4.0-11.0) Red Blood Count 4.41 x10^6/uL (4.30-5.70) Hemoglobin 11.1 g/dL (13.0-17.5) Hematocrit 35.3 % (39.0-53.0) Mean Corpuscular Volume 80 fL (79-100) Mean Corpuscular Hemoglobin 25 pg (25-35) Mean Corpuscular Hemoglobin Concent 32 g/dL (31-37) Red Cell Distribution Width 19.1 % (11.5-14.5) Platelet Count 237 x10^3/uL (140-400) Neutrophils (%) (Auto) 90 % (31-73) Lymphocytes (%) (Auto) 8 % (24-48) Monocytes (%) (Auto) 2 % (0-9) Eosinophils (%) (Auto) 0 % (0-3) Basophils (%) (Auto) 1 % (0-3) Neutrophils # (Auto) 11.0 x10^3uL (1.8-7.7) Lymphocytes # (Auto) 1.0 x10^3/uL (1.0-4.8) Monocytes # (Auto) 0.2 x10^3/uL (0.0-1.1) Eosinophils # (Auto) 0.0 x10^3/uL (0.0-0.7) Basophils # (Auto) 0.1 x10^3/uL (0.0-0.2) Segmented Neutrophils % 88 % (35-66) Band Neutrophils % 2 % (0-9) Lymphocytes % 7 % (24-48) Monocytes % 3 % (0-10) Platelet Estimate Adequate (ADEQUATE) Poikilocytosis Slight Anisocytosis Slight Ovalocytes Few Sodium Level 140 mmol/L (136-145) Potassium Level 4.2 mmol/L (3.5-5.1) Chloride Level 103 mmol/L (98-107) Carbon Dioxide Level 23 mmol/L (21-32) Anion Gap 14 (6-14) Blood Urea Nitrogen 20 mg/dL (8-26) Creatinine 1.5 mg/dL (0.7-1.3) Estimated GFR (Cockcroft-Gault) 54.9 BUN/Creatinine Ratio 13 (6-20) Glucose Level 158 mg/dL (70-99) Lactic Acid Level 3.0 mmol/L (0.4-2.0) 2.8 mmol/L (0.4-2.0) Calcium Level 8.8 mg/dL (8.5-10.1) Total Bilirubin 0.3 mg/dL (0.2-1.0) Aspartate Amino Transf (AST/SGOT) 15 U/L (15-37) Alanine Aminotransferase (ALT/SGPT) 13 U/L (16-63) Alkaline Phosphatase 56 U/L (46-116) Total Protein 6.9 g/dL (6.4-8.2) Albumin 3.5 g/dL (3.4-5.0) Albumin/Globulin Ratio 1.0 (1.0-1.7) O2 Saturation 93 % (92-99) Arterial Blood pH 7.38 (7.35-7.45) Arterial Blood pCO2 at Patient Temp 35 mmHg (35-46) Arterial Blood pO2 at Patient Temp 71 mmHg (65-108) Arterial Blood HCO3 20 mmol/L (21-28) Arterial Blood Base Excess -5 mmol/L (-3-3) FiO2 21.0 Test 05/24/17 21:45 05/25/17 03:20 05/25/17 07:54 05/25/17 11:37 Nasal Screen MRSA (PCR) Negative (Negative) White Blood Count 12.0 x10^3/uL (4.0-11.0) Red Blood Count 4.47 x10^6/uL (4.30-5.70) Hemoglobin 11.3 g/dL (13.0-17.5) Hematocrit 36.2 % (39.0-53.0) Mean Corpuscular Volume 81 fL (79-100) Mean Corpuscular Hemoglobin 25 pg (25-35) Mean Corpuscular Hemoglobin Concent 31 g/dL (31-37) Red Cell Distribution Width 18.9 % (11.5-14.5) Platelet Count 257 x10^3/uL (140-400) Neutrophils (%) (Auto) 84 % (31-73) Lymphocytes (%) (Auto) 12 % (24-48) Monocytes (%) (Auto) 4 % (0-9) Eosinophils (%) (Auto) 0 % (0-3) Basophils (%) (Auto) 0 % (0-3) Neutrophils # (Auto) 10.1 x10^3uL (1.8-7.7) Lymphocytes # (Auto) 1.4 x10^3/uL (1.0-4.8) Monocytes # (Auto) 0.5 x10^3/uL (0.0-1.1) Eosinophils # (Auto) 0.0 x10^3/uL (0.0-0.7) Basophils # (Auto) 0.0 x10^3/uL (0.0-0.2) Sodium Level 146 mmol/L (136-145) Potassium Level 3.9 mmol/L (3.5-5.1) Chloride Level 110 mmol/L (98-107) Carbon Dioxide Level 26 mmol/L (21-32) Anion Gap 10 (6-14) Blood Urea Nitrogen 15 mg/dL (8-26) Creatinine 1.3 mg/dL (0.7-1.3) Estimated GFR (Cockcroft-Gault) 64.8 Glucose Level 107 mg/dL (70-99) Lactic Acid Level 2.0 mmol/L (0.4-2.0) Calcium Level 8.5 mg/dL (8.5-10.1) Glucose (Fingerstick) 64 mg/dL (70-99) 82 mg/dL (70-99) Test 05/25/17 20:34 05/26/17 08:33 05/26/17 09:13 Glucose (Fingerstick) 91 mg/dL (70-99) 50 mg/dL (70-99) 58 mg/dL (70-99) Laboratory Tests Test 05/25/17 11:37 05/25/17 20:34 05/26/17 08:33 05/26/17 09:13 Glucose (Fingerstick) 82 mg/dL (70-99) 91 mg/dL (70-99) 50 mg/dL (70-99) 58 mg/dL (70-99) Microbiology 05/24/17 Blood Culture - Preliminary, Resulted NO GROWTH AFTER 1 DAY Medications Current Medications Sodium Chloride 500 ml @ 500 mls/hr 1X ONCE IV Last administered on t 18:55; Start 05/24/17 at 18:15; Stop 05/24/17 at 19:14; Status DC Sodium Chloride 1,000 ml @ 1,000 mls/hr 1X ONCE IV Last administered on 05/24 20:51; Start 05/24/17 at 21:00; Stop 05/24/17 at 21:59; Status DC Vancomycin HCl 1.75 gm/Sodium Chloride 500 ml @ 250 mls/hr 1X ONCE IV ; Start 05/24/17 at 20:30; Stop 05/24/17 at 20:30; Status DC Piperacillin Sod/ Tazobactam Sod 4.5 gm/Dextrose 100 ml @ 200 mls/hr 1X ONCE IV ; Start 05/24/17 at 20:30; Stop 05/24/17 at 20:30; Status DC Piperacillin Sod/ Tazobactam Sod (Zosyn) 4.5 gm 1X ONCE IVP Last administered on 05/24/17 20:51; Start 05/24/17 at 21:00; Stop 05/24/17 at 21:01; Status DC Ondansetron HCl (Zofran) 4 mg PRN Q8HRS PRN IV NAUSEA/VOMITING; Start at 20:30; Stop 05/25/17 at 20:29; Status DC Morphine Sulfate 2 mg PRN Q2HR PRN IV PAIN; Start 05/24/17 at 20:30; Stop at 20:29; Status DC Sodium Chloride 1,000 ml @ 150 mls/hr Q6H40M IV Last administered on 14:43; Start 05/24/17 at 20:24; Stop 05/25/17 at 20:23; Status DC Acetaminophen (Tylenol) 650 mg PRN Q4HRS PRN PO FEVER; Start 05/24/17 at 20:30 ; Stop 05/25/17 at 20:29; Status DC Vancomycin HCl 2 gm/Dextrose/ Sodium Chloride 500 ml @ 250 mls/hr 1X ONCE IV Last administered on 05/24/17 20:52; Start 05/24/17 at 21:00; Stop 05/24/17 at 22:59; Status DC Info (Do NOT chart on this placeholder) 1 each PRN DAILY PRN [facility] UNABLE TO RESPOND; Start 05/25/17 at 03:30 Pneumococcal Polyvalent Vaccine (Do NOT chart on this placeholder) 1 each PRN DAILY PRN [facility] UNABLE TO RESPOND; Start 05/25/17 at 03:30 Acetaminophen (Tylenol) 650 mg PRN Q6HRS PRN PO TEMP > 100.4F; Start 05/25/17 at 12:45 Acetaminophen (Acetaminophen Supp) 650 mg PRN Q4HRS PRN OR TEMP > 100.4F; Start 05/25/17 at 12:45 Aspirin (Children'S Aspirin) 81 mg DAILYWBKFT PO Last administered on 13:25; Start 05/25/17 at 13:00 Aspirin (Ecotrin) 81 mg DAILY PO ; Start 05/25/17 at 17:00; Stop 05/26/17 at 09:19; Status DC Atorvastatin Calcium (Lipitor) 20 mg HS PO Last administered on 05/25/17 20: 32; Start 05/25/17 at 21:00 Dexamethasone (Decadron) 8 mg DAILY PO ; Start 05/25/17 at 17:00 Famotidine (Pepcid) 20 mg BID PO Last administered on 05/25/17 21:00; Start 05/25/17 at 21:00 Ferrous Sulfate (Feosol) 325 mg BIDWMEALS PO ; Start 05/25/17 at 17:00 Fluoxetine HCl (PROzac) 20 mg DAILY PO ; Start 05/25/17 at 17:00 Acetaminophen/ Hydrocodone Bitart (Lortab 7.5/325) 1 tab PRN Q4HRS PRN PO pain ; Start 05/25/17 at 15:15 Albuterol Sulfate (Ventolin Neb Soln) 3 mg PRN Q4HRS PRN NEB WHEEZING; Start 05/25/17 at 15:15 Levetiracetam (Keppra) 750 mg BID PO Last administered on 05/26/17 09:37; Start 05/25/17 at 21:00 Losartan Potassium (Cozaar) 50 mg DAILY PO ; Start 05/25/17 at 17:00 Metoprolol Tartrate (Lopressor) 25 mg BID PO Last administered on 05/25/17 20 :32; Start 05/25/17 at 21:00 Tamsulosin HCl (Flomax) 0.4 mg HS PO Last administered on 05/25/17 20:32; Start 05/25/17 at 21:00 Piperacillin Sod/ Tazobactam Sod 2.25 gm/Dextrose 50 ml @ 100 mls/hr 1X ONCE IV ; Start 05/25/17 at 15:15; Stop 05/26/17 at 09:31; Status DC Enoxaparin Sodium (Lovenox 40mg Syringe) 30 mg Q24H SQ ; Start 05/25/17 at 17: 00 Piperacillin Sod/ Tazobactam Sod (Zosyn) 3.375 gm Q6HRS IVP Last administered on 05/26/17 06:06; Start 05/25/17 at 16:30; Stop 05/26/17 at 09:31; Status DC Dextrose (Dextrose 50%-Water Syringe) 12.5 gm PRN Q15MIN PRN IV SEE COMMENTS; Start 05/26/17 at 09:15 Amoxicillin/ Clavulanate Potassium (Augmentin 875/ 125mg) 1 tab BID PO ; Start 05/26/17 at 21:00 Lactobacillus Rhamnosus (Culturelle) 1 cap BID PO Last administered on 09:38; Start 05/26/17 at 10:00 Active Scripts Active Reported Metoprolol Tartrate 25 Mg Tablet 25 Mg PO BID Losartan Potassium 50 Mg Tablet 50 Mg PO DAILY Linzess (Linaclotide) 72 Mcg Capsule 72 Mcg PO DAILY Ferrous Sulfate 325 Mg Tablet 325 Mg PO BID Duoneb 0.5-3(2.5) Mg/3 Ml (Albuterol/Ipratropium) 3 Ml Ampul.neb 3 Ml NEB Q4HRS PRN Loratadine 10 Mg Tablet 10 Mg PO DAILY Atorvastatin Calcium 20 Mg Tablet 20 Mg PO HS Aspir 81 (Aspirin) 81 Mg Tablet.dr 81 Mg PO DAILY Zofran (Ondansetron Hcl) 4 Mg Tablet 1 Tab PO PRN Q6-8HRS Prozac (Fluoxetine Hcl) 20 Mg Capsule 20 Mg PO DAILY Metformin Hcl 500 Mg Tablet 500 Mg PO BIDWMEALS Keppra (Levetiracetam) 500 Mg Tablet 750 Mg PO BID Famotidine 20 Mg Tablet 20 Mg PO BID Dexamethasone 4 Mg Tablet 2 Tab PO DAILY Tamsulosin Hcl 0.4 Mg Cap.er.24h 0.4 Mg PO HS Hydrocodone-Apap 7.5-325 (Hydrocodone Bit/Acetaminophen) 1 Each Tablet 1 Each PO EVERY 4 HOURS Fish Oil 1,200 Mg Softgel ([place]-3 Fatty Acids/Fish Oil) 1 Each Capsule 1 Each PO DAILY Vitals/I & O Vital Sign - Last 24 Hours 05/25/17 05/25/17 05/25/17 05/25/17 11:00 14:35 19:35 20:00 Temp 98.1 97.9 97.6 98.1 97.9 97.6 Pulse 80 78 57 Resp 16 16 16 B/P (MAP) 140/68 (92) 132/60 (84) 126/77 (93) Pulse Ox 96 96 98 O2 Delivery Room Air Room Air Room Air 05/25/17 05/25/17 05/25/17 05/26/17 20:11 20:32 23:51 02:56 Temp 97.6 97.6 Pulse 57 59 Resp 16 16 B/P (MAP) 126/77 129/65 (86) Pulse Ox 96 96 O2 Delivery Room Air Room Air Room Air 05/26/17 08:00 O2 Delivery Room Air Intake and Output 05/25/17 05/25/17 05/26/17 15:00 23:00 07:00 Intake Total 480 ml 0 ml 200 ml Balance 480 ml 0 ml 200 ml Images Carotids: Duplex evaluation of the carotid arteries in neck was performed including grayscale, color-flow and spectral Doppler analysis. There is only minimal intimal thickening bilaterally. No prominent plaque formation is seen. The peak systolic velocity in the right internal carotid artery is 24 cm/s with an end-diastolic velocity of 8 cm/s. The peak systolic velocity in the left internal carotid artery is 33 cm per sec with an end-diastolic velocity of 14 cm/s. There is no duplex evidence of hemodynamically significant stenosis. Antegrade flow is present in both vertebral arteries in the neck. IMPRESSION: No duplex evidence of significant carotid stenosis in the neck. JESSICA HODGES MD May 26, 2017 10:16
--- NOTE | 2017-05-26 10:52 | RAD ---
INDICATION: Abnormal CT with evidence of stroke. Seizures. Previous brain tumor with radiation therapy and chemotherapy. TECHNIQUE: Sagittal T1, axial T1, axial T2, axial FLAIR, axial T2 gradient, oblique coronal T2, oblique coronal FLAIR, and diffusion imaging with ADC map was performed. Comparison is a CT head from 2 days ago. FINDINGS: 1.8 x 2.9 cm extra-axial mass in the right middle cranial fossa was calcified on CT and has imaging characteristics most suggestive of meningioma. There is FLAIR hyperintensity confluently throughout the supratentorial white matter, greater on the right. This could represent a combination of posttreatment change (given history of radiation therapy), edema, and small vessel ischemic disease. Finding appears similar to prior. Minimal probable small vessel ischemic disease is noted in the alfreda. There is midline shift associated with the mass, 3 mm. There is some mass effect on the right lateral ventricle. There is prominence of the ventricles and sulci. There is no acute intracranial hemorrhage or extra-axial fluid collection. There is no restricted diffusion in a pattern to suggest acute or subacute infarct. The decreased attenuation noted on prior CT again may be related to posttreatment change and small vessel ischemic disease. The intracranial flow voids are preserved. Cervicomedullary junction is unremarkable. There is minimal frontal and ethmoid mucosal thickening. Nonspecific fluid in the optic sheaths can be a finding of elevated intracranial pressures. Oblique coronal imaging through the temporal lobes demonstrates asymmetric FLAIR hyperintensity in the right temporal lobe when compared to the left, again this may be combination of edema, posttreatment change, and small vessel ischemic disease. There is no evidence of mesial temporal sclerosis. IMPRESSION: 1. Extra-axial right middle cranial fossa mass may represent meningioma. Stability is documented back to the oldest available comparison study of February 23, 2017. Comparison to any older exams may be of benefit. 2. Confluent FLAIR hyperintensity in the supratentorial white matter, greater on the right, could represent a combination of edema, posttreatment change, and small vessel ischemic disease. 3. There is no evidence of an acute or subacute infarct. Electronically signed by: Orlando Nunez MD (05/26/2017 10:49 AM) [id number]
[2017-05-26 11:00] VITALS: BP 134/65
[2017-05-26] MEDS: ENOXAPARIN 40 MG/0.4 ML SYRINGE. SQ SCH ×2 (11:14→15:50)
[2017-05-26 15:58] VITALS: BP 139/84
[2017-05-26 20:30] VITALS: BP 116/69
[2017-05-26] MEDS: AMOXICILLIN/K CLAV 875/125MG TABLET. PO SCH (20:40)
[2017-05-26] MEDS: TAMSULOSIN 0.4 MG CAP.ER.24H. PO SCH (20:41)
[2017-05-26] MEDS: ATORVASTATIN CALCIUM 20 MG TABLET PO SCH (20:42)
[2017-05-26] MEDS: levETIRAcetam 250 MG TABLET PO SCH (20:42)
[2017-05-26 23:28] VITALS: BP 124/73
[2017-05-27] MEDS: LACTOBACILLUS RHAMNOSUS GG 1 CAPSULE. PO SCH ×2 (07:00→20:44)
[2017-05-27] MEDS: LOSARTAN POTASSIUM 50 MG TABLET. PO SCH (07:00)
[2017-05-27] MEDS: ASPIRIN CHEWABLE 81 MG TABLET. PO SCH (07:00)
[2017-05-27] MEDS: FERROUS SULFATE 325 MG TABLET. PO SCH ×2 (07:00→12:11)
[2017-05-27] MEDS: AMOXICILLIN/K CLAV 875/125MG TABLET. PO SCH ×2 (07:00→20:44)
[2017-05-27] MEDS: levETIRAcetam 250 MG TABLET PO SCH ×2 (07:01→20:44)
[2017-05-27] MEDS: FAMOTIDINE 20 MG TABLET. PO SCH ×2 (07:01→20:44)
[2017-05-27] MEDS: FLUoxetine HCL 20 MG CAPSULE PO SCH (07:01)
[2017-05-27] MEDS: METOPROLOL TART IMMED RELEASE 25 MG TABLET. PO SCH ×2 (07:01→20:45)
[2017-05-27] MEDS: DEXAMETHASONE 4 MG TABLET PO SCH (07:01)
--- NOTE | 2017-05-27 08:47 | PDOC ---
PROGRESS NOTES Subjective Subjective denies any specific complaints and when questioned on why not taking meds states it s because of how they try to give me a whole bunch at once. Objective Objective Vital Signs Date Time Temp Pulse Resp B/P (MAP) Pulse Ox O2 Delivery O2 Flow Rate FiO2 05/26/17 23:28 97.8 67 16 124/73 (90) 100 Room Air 97.8 Intake and Output 05/27/17 06:59 Intake Total 950 ml Output Total 750 ml Balance 200 ml Intake Oral 950 ml Output Urine Total 750 ml # Voids 1 vss and afebrile. Mri brain with all chronic changes from old metastatic disease to head from lung cancer. blood and urine cultures negative to date and lactic acid level has returned to normal. sugars are good. Physical Exam Abdomen: Normal bowel sounds, Soft, No tenderness, No hepatosplenomegaly, No masses Heart: Regular rate, No murmurs Extremities: No clubbing, No cyanosis, No edema, Normal pulses General: Alert, No acute distress HEENT: Atraumatic, EOMI Lungs: Other (decreased breath sounds bilaterally.) Neck: Supple, No JVD, No thyromegaly, +2 carotid pulse wo bruit Neuro: Other (confused) Skin: No rashes, No breakdown, No significant lesion Diagnosis DIAGNOSIS encephalopathy likely related to sepsis, improving with antibiotics. no evidence of acute stroke as suggested on ct head. underlying dementia. seizure disorder. refusing medications. history of lung cancer with metastatic disease to brain. Problems: Assessment Assessment Problems Medical Problems: (1) Altered mental status Status: Acute (2) Lactic acidosis Status: Acute (3) Leukocytosis Status: Acute Plan Plan of Care await echocardiogram. discussed with nursing strategies to get patient to take meds. probable dc am if ok with neuro and no findings on echo. Comment Review of Relevant I have reviewed the following items tereza (where applicable) has been applied. Labs Laboratory Tests Test 05/25/17 11:37 05/25/17 20:34 05/26/17 08:33 05/26/17 09:13 Glucose (Fingerstick) 82 mg/dL (70-99) 91 mg/dL (70-99) 50 mg/dL (70-99) 58 mg/dL (70-99) Test 05/26/17 12:18 05/26/17 20:49 Glucose (Fingerstick) 88 mg/dL (70-99) 89 mg/dL (70-99) Laboratory Tests Test 05/26/17 09:13 05/26/17 12:18 05/26/17 20:49 Glucose (Fingerstick) 58 mg/dL (70-99) 88 mg/dL (70-99) 89 mg/dL (70-99) Microbiology 05/24/17 Blood Culture - Preliminary, Resulted NO GROWTH AFTER 2 DAYS 05/24/17 Urine Culture - Preliminary, Resulted 05/24/17 Urine Culture Result 1 (DAYNA) - Preliminary, Resulted Medications Current Medications Sodium Chloride 500 ml @ 500 mls/hr 1X ONCE IV Last administered on 18:55; Start 05/24/17 at 18:15; Stop 05/24/17 at 19:14; Status DC Sodium Chloride 1,000 ml @ 1,000 mls/hr 1X ONCE IV Last administered on 05/24 20:51; Start 05/24/17 at 21:00; Stop 05/24/17 at 21:59; Status DC Vancomycin HCl 1.75 gm/Sodium Chloride 500 ml @ 250 mls/hr 1X ONCE IV ; Start 05/24/17 at 20:30; Stop 05/24/17 at 20:30; Status DC Piperacillin Sod/ Tazobactam Sod 4.5 gm/Dextrose 100 ml @ 200 mls/hr 1X ONCE IV ; Start 05/24/17 at 20:30; Stop 05/24/17 at 20:30; Status DC Piperacillin Sod/ Tazobactam Sod (Zosyn) 4.5 gm 1X ONCE IVP Last administered on 05/24/17 20:51; Start 05/24/17 at 21:00; Stop 05/24/17 at 21:01; Status DC Ondansetron HCl (Zofran) 4 mg PRN Q8HRS PRN IV NAUSEA/VOMITING; Start at 20:30; Stop 05/25/17 at 20:29; Status DC Morphine Sulfate 2 mg PRN Q2HR PRN IV PAIN; Start 05/24/17 at 20:30; Stop at 20:29; Status DC Sodium Chloride 1,000 ml @ 150 mls/hr Q6H40M IV Last administered on 14:43; Start 05/24/17 at 20:24; Stop 05/25/17 at 20:23; Status DC Acetaminophen (Tylenol) 650 mg PRN Q4HRS PRN PO FEVER; Start 05/24/17 at 20:30 ; Stop 05/25/17 at 20:29; Status DC Vancomycin HCl 2 gm/Dextrose/ Sodium Chloride 500 ml @ 250 mls/hr 1X ONCE IV Last administered on 05/24/17 20:52; Start 05/24/17 at 21:00; Stop 05/24/17 at 22:59; Status DC Info (Do NOT chart on this placeholder) 1 each PRN DAILY PRN [facility] UNABLE TO RESPOND; Start 05/25/17 at 03:30; Status Cancel Pneumococcal Polyvalent Vaccine (Do NOT chart on this placeholder) 1 each PRN DAILY PRN [facility] UNABLE TO RESPOND; Start 05/25/17 at 03:30; Status Cancel Acetaminophen (Tylenol) 650 mg PRN Q6HRS PRN PO TEMP > 100.4F; Start 05/25/17 at 12:45 Acetaminophen (Acetaminophen Supp) 650 mg PRN Q4HRS PRN [place] TEMP > 100.4F; Start 05/25/17 at 12:45 Aspirin (Children'S Aspirin) 81 mg DAILYWBKFT PO Last administered on 13:25; Start 05/25/17 at 13:00 Aspirin (Ecotrin) 81 mg DAILY PO ; Start 05/25/17 at 17:00; Stop 05/26/17 at 09:19; Status DC Atorvastatin Calcium (Lipitor) 20 mg HS PO Last administered on 05/25/17 20: 32; Start 05/25/17 at 21:00 Dexamethasone (Decadron) 8 mg DAILY PO ; Start 05/25/17 at 17:00 Famotidine (Pepcid) 20 mg BID PO Last administered on 05/25/17 21:00; Start 05/25/17 at 21:00 Ferrous Sulfate (Feosol) 325 mg BIDWMEALS PO ; Start 05/25/17 at 17:00 Fluoxetine HCl (PROzac) 20 mg DAILY PO ; Start 05/25/17 at 17:00 Acetaminophen/ Hydrocodone Bitart (Lortab 7.5/325) 1 tab PRN Q4HRS PRN PO pain ; Start 05/25/17 at 15:15 Albuterol Sulfate (Ventolin Neb Soln) 3 mg PRN Q4HRS PRN NEB WHEEZING; Start 05/25/17 at 15:15 Levetiracetam (Keppra) 750 mg BID PO Last administered on 05/26/17 09:37; Start 05/25/17 at 21:00; Stop 05/26/17 at 14:48; Status DC Losartan Potassium (Cozaar) 50 mg DAILY PO ; Start 05/25/17 at 17:00 Metoprolol Tartrate (Lopressor) 25 mg BID PO Last administered on 05/25/17 20 :32; Start 05/25/17 at 21:00 Tamsulosin HCl (Flomax) 0.4 mg HS PO Last administered on 05/25/17 20:32; Start 05/25/17 at 21:00 Piperacillin Sod/ Tazobactam Sod 2.25 gm/Dextrose 50 ml @ 100 mls/hr 1X ONCE IV ; Start 05/25/17 at 15:15; Stop 05/26/17 at 09:31; Status DC Enoxaparin Sodium (Lovenox 40mg Syringe) 30 mg Q24H SQ ; Start 05/25/17 at 17: 00; Stop 05/26/17 at 14:45; Status DC Piperacillin Sod/ Tazobactam Sod (Zosyn) 3.375 gm Q6HRS IVP Last administered on 05/26/17 06:06; Start 05/25/17 at 16:30; Stop 05/26/17 at 09:31; Status DC Dextrose (Dextrose 50%-Water Syringe) 12.5 gm PRN Q15MIN PRN IV SEE COMMENTS; Start 05/26/17 at 09:15 Amoxicillin/ Clavulanate Potassium (Augmentin 875/ 125mg) 1 tab BID PO ; Start 05/26/17 at 21:00 Lactobacillus Rhamnosus (Culturelle) 1 cap BID PO Last administered on 09:38; Start 05/26/17 at 10:00 Enoxaparin Sodium (Lovenox 40mg Syringe) 40 mg Q24H SQ ; Start 05/26/17 at 17: 00 Levetiracetam (Keppra) 750 mg BID PO ; Start 05/26/17 at 21:00 Active Scripts Active Reported Metoprolol Tartrate 25 Mg Tablet 25 Mg PO BID Losartan Potassium 50 Mg Tablet 50 Mg PO DAILY Linzess (Linaclotide) 72 Mcg Capsule 72 Mcg PO DAILY Ferrous Sulfate 325 Mg Tablet 325 Mg PO BID Duoneb 0.5-3(2.5) Mg/3 Ml (Albuterol/Ipratropium) 3 Ml Ampul.neb 3 Ml NEB Q4HRS PRN Loratadine 10 Mg Tablet 10 Mg PO DAILY Atorvastatin Calcium 20 Mg Tablet 20 Mg PO HS Aspir 81 (Aspirin) 81 Mg Tablet.dr 81 Mg PO DAILY Zofran (Ondansetron Hcl) 4 Mg Tablet 1 Tab PO PRN Q6-8HRS Prozac (Fluoxetine Hcl) 20 Mg Capsule 20 Mg PO DAILY Metformin Hcl 500 Mg Tablet 500 Mg PO BIDWMEALS Keppra (Levetiracetam) 500 Mg Tablet 750 Mg PO BID Famotidine 20 Mg Tablet 20 Mg PO BID Dexamethasone 4 Mg Tablet 2 Tab PO DAILY Tamsulosin Hcl 0.4 Mg Cap.er.24h 0.4 Mg PO HS Hydrocodone-Apap 7.5-325 (Hydrocodone Bit/Acetaminophen) 1 Each Tablet 1 Each PO EVERY 4 HOURS Fish Oil 1,200 Mg Softgel ([place]-3 Fatty Acids/Fish Oil) 1 Each Capsule 1 Each PO DAILY Vitals/I & O Vital Sign - Last 24 Hours 05/26/17 05/26/17 05/26/17 05/26/17 11:00 15:58 20:00 20:30 Temp 98.1 97.4 98.1 97.4 Pulse 67 60 73 Resp 20 20 20 B/P (MAP) 134/65 (88) 139/84 (102) 116/69 (85) Pulse Ox 96 100 97 O2 Delivery Room Air Room Air Room Air Room Air 05/26/17 23:28 Temp 97.8 97.8 Pulse 67 Resp 16 B/P (MAP) 124/73 (90) Pulse Ox 100 O2 Delivery Room Air Intake and Output 05/26/17 05/26/17 05/27/17 14:59 22:59 06:59 Intake Total 250 ml 500 ml 200 ml Output Total 750 ml Balance 250 ml 500 ml -550 ml ELMA GUERRA MD May 27, 2017 08:47
--- NOTE | 2017-05-27 10:53 | PDOC ---
PROGRESS NOTES Assessment Problems Medical Problems: (1) Altered mental status Status: Acute (2) Lactic acidosis Status: Acute (3) Leukocytosis Status: Acute Altered mental status, metabolic encephalopathy Lung cancer with metastases to the brain in the past MRI brain negative for any acute disease, shows post radiation changes Also shows possible meningioma not requiring treatment Dementia Patient refusing medications Plan No additional neurological studies for treatment required Okay to return to shelter, especially since he refuses treatment Subjective No complaints Objective Vital Signs Date Time Temp Pulse Resp B/P (MAP) Pulse Ox O2 Delivery O2 Flow Rate FiO2 05/27/17 08:00 Room Air 05/26/17 23:28 97.8 67 16 124/73 (90) 100 97.8 Intake and Output 05/27/17 06:59 Intake Total 950 ml Output Total 750 ml Balance 200 ml Intake Oral 950 ml Output Urine Total 750 ml # Voids 1 PHYSICAL EXAM Alert. Oriented only to person PERRL. EOMI. CN: no focal findings. Muscle tone: normal. Muscle strength: 4/5 DTR: 1+ Plantar reflex: flexor Gait: not examined in bed. Sensory exam: no abnormal findings. No cerebellar signs elicited. Review of Relevant I have reviewed the following items tereza (where applicable) has been applied. Labs Laboratory Tests Test 05/25/17 11:37 05/25/17 20:34 05/26/17 08:33 05/26/17 09:13 Glucose (Fingerstick) 82 mg/dL (70-99) 91 mg/dL (70-99) 50 mg/dL (70-99) 58 mg/dL (70-99) Test 05/26/17 12:18 05/26/17 20:49 Glucose (Fingerstick) 88 mg/dL (70-99) 89 mg/dL (70-99) Laboratory Tests Test 05/26/17 12:18 05/26/17 20:49 Glucose (Fingerstick) 88 mg/dL (70-99) 89 mg/dL (70-99) Microbiology 05/24/17 Blood Culture - Preliminary, Resulted NO GROWTH AFTER 2 DAYS 05/24/17 Urine Culture - Preliminary, Resulted 05/24/17 Urine Culture Result 1 (DAYNA) - Preliminary, Resulted Medications Current Medications Sodium Chloride 500 ml @ 500 mls/hr 1X ONCE IV Last administered on t 18:55; Start 05/24/17 at 18:15; Stop 05/24/17 at 19:14; Status DC Sodium Chloride 1,000 ml @ 1,000 mls/hr 1X ONCE IV Last administered on 05/24 20:51; Start 05/24/17 at 21:00; Stop 05/24/17 at 21:59; Status DC Vancomycin HCl 1.75 gm/Sodium Chloride 500 ml @ 250 mls/hr 1X ONCE IV ; Start 05/24/17 at 20:30; Stop 05/24/17 at 20:30; Status DC Piperacillin Sod/ Tazobactam Sod 4.5 gm/Dextrose 100 ml @ 200 mls/hr 1X ONCE IV ; Start 05/24/17 at 20:30; Stop 05/24/17 at 20:30; Status DC Piperacillin Sod/ Tazobactam Sod (Zosyn) 4.5 gm 1X ONCE IVP Last administered on 05/24/17 20:51; Start 05/24/17 at 21:00; Stop 05/24/17 at 21:01; Status DC Ondansetron HCl (Zofran) 4 mg PRN Q8HRS PRN IV NAUSEA/VOMITING; Start at 20:30; Stop 05/25/17 at 20:29; Status DC Morphine Sulfate 2 mg PRN Q2HR PRN IV PAIN; Start 05/24/17 at 20:30; Stop at 20:29; Status DC Sodium Chloride 1,000 ml @ 150 mls/hr Q6H40M IV Last administered on 14:43; Start 05/24/17 at 20:24; Stop 05/25/17 at 20:23; Status DC Acetaminophen (Tylenol) 650 mg PRN Q4HRS PRN PO FEVER; Start 05/24/17 at 20:30 ; Stop 05/25/17 at 20:29; Status DC Vancomycin HCl 2 gm/Dextrose/ Sodium Chloride 500 ml @ 250 mls/hr 1X ONCE IV Last administered on 05/24/17 20:52; Start 05/24/17 at 21:00; Stop 05/24/17 at 22:59; Status DC Info (Do NOT chart on this placeholder) 1 each PRN DAILY PRN [facility] UNABLE TO RESPOND; Start 05/25/17 at 03:30; Status Cancel Pneumococcal Polyvalent Vaccine (Do NOT chart on this placeholder) 1 each PRN DAILY PRN [facility] UNABLE TO RESPOND; Start 05/25/17 at 03:30; Status Cancel Acetaminophen (Tylenol) 650 mg PRN Q6HRS PRN PO TEMP > 100.4F; Start 05/25/17 at 12:45 Acetaminophen (Acetaminophen Supp) 650 mg PRN Q4HRS PRN [place] TEMP > 100.4F; Start 05/25/17 at 12:45 Aspirin (Children'S Aspirin) 81 mg DAILYWBKFT PO Last administered on 13:25; Start 05/25/17 at 13:00 Aspirin (Ecotrin) 81 mg DAILY PO ; Start 05/25/17 at 17:00; Stop 05/26/17 at 09:19; Status DC Atorvastatin Calcium (Lipitor) 20 mg HS PO Last administered on 05/25/17 20: 32; Start 05/25/17 at 21:00 Dexamethasone (Decadron) 8 mg DAILY PO ; Start 05/25/17 at 17:00 Famotidine (Pepcid) 20 mg BID PO Last administered on 05/25/17 21:00; Start 05/25/17 at 21:00 Ferrous Sulfate (Feosol) 325 mg BIDWMEALS PO ; Start 05/25/17 at 17:00 Fluoxetine HCl (PROzac) 20 mg DAILY PO ; Start 05/25/17 at 17:00 Acetaminophen/ Hydrocodone Bitart (Lortab 7.5/325) 1 tab PRN Q4HRS PRN PO pain ; Start 05/25/17 at 15:15 Albuterol Sulfate (Ventolin Neb Soln) 3 mg PRN Q4HRS PRN NEB WHEEZING; Start 05/25/17 at 15:15 Levetiracetam (Keppra) 750 mg BID PO Last administered on 05/26/17 09:37; Start 05/25/17 at 21:00; Stop 05/26/17 at 14:48; Status DC Losartan Potassium (Cozaar) 50 mg DAILY PO ; Start 05/25/17 at 17:00 Metoprolol Tartrate (Lopressor) 25 mg BID PO Last administered on 05/25/17 20 :32; Start 05/25/17 at 21:00 Tamsulosin HCl (Flomax) 0.4 mg HS PO Last administered on 05/25/17 20:32; Start 05/25/17 at 21:00 Piperacillin Sod/ Tazobactam Sod 2.25 gm/Dextrose 50 ml @ 100 mls/hr 1X ONCE IV ; Start 05/25/17 at 15:15; Stop 05/26/17 at 09:31; Status DC Enoxaparin Sodium (Lovenox 40mg Syringe) 30 mg Q24H SQ ; Start 05/25/17 at 17: 00; Stop 05/26/17 at 14:45; Status DC Piperacillin Sod/ Tazobactam Sod (Zosyn) 3.375 gm Q6HRS IVP Last administered on 05/26/17 06:06; Start 05/25/17 at 16:30; Stop 05/26/17 at 09:31; Status DC Dextrose (Dextrose 50%-Water Syringe) 12.5 gm PRN Q15MIN PRN IV SEE COMMENTS; Start 05/26/17 at 09:15 Amoxicillin/ Clavulanate Potassium (Augmentin 875/ 125mg) 1 tab BID PO ; Start 05/26/17 at 21:00 Lactobacillus Rhamnosus (Culturelle) 1 cap BID PO Last administered on 09:38; Start 05/26/17 at 10:00 Enoxaparin Sodium (Lovenox 40mg Syringe) 40 mg Q24H SQ ; Start 05/26/17 at 17: 00 Levetiracetam (Keppra) 750 mg BID PO ; Start 05/26/17 at 21:00 Active Scripts Active Reported Metoprolol Tartrate 25 Mg Tablet 25 Mg PO BID Losartan Potassium 50 Mg Tablet 50 Mg PO DAILY Linzess (Linaclotide) 72 Mcg Capsule 72 Mcg PO DAILY Ferrous Sulfate 325 Mg Tablet 325 Mg PO BID Duoneb 0.5-3(2.5) Mg/3 Ml (Albuterol/Ipratropium) 3 Ml Ampul.neb 3 Ml NEB Q4HRS PRN Loratadine 10 Mg Tablet 10 Mg PO DAILY Atorvastatin Calcium 20 Mg Tablet 20 Mg PO HS Aspir 81 (Aspirin) 81 Mg Tablet.dr 81 Mg PO DAILY Zofran (Ondansetron Hcl) 4 Mg Tablet 1 Tab PO PRN Q6-8HRS Prozac (Fluoxetine Hcl) 20 Mg Capsule 20 Mg PO DAILY Metformin Hcl 500 Mg Tablet 500 Mg PO BIDWMEALS Keppra (Levetiracetam) 500 Mg Tablet 750 Mg PO BID Famotidine 20 Mg Tablet 20 Mg PO BID Dexamethasone 4 Mg Tablet 2 Tab PO DAILY Tamsulosin Hcl 0.4 Mg Cap.er.24h 0.4 Mg PO HS Hydrocodone-Apap 7.5-325 (Hydrocodone Bit/Acetaminophen) 1 Each Tablet 1 Each PO EVERY 4 HOURS Fish Oil 1,200 Mg Softgel ([place]-3 Fatty Acids/Fish Oil) 1 Each Capsule 1 Each PO DAILY Vitals/I & O Vital Sign - Last 24 Hours 05/26/17 05/26/17 05/26/17 05/26/17 11:00 15:58 20:00 20:30 Temp 98.1 97.4 98.1 97.4 Pulse 67 60 73 Resp 20 20 20 B/P (MAP) 134/65 (88) 139/84 (102) 116/69 (85) Pulse Ox 96 100 97 O2 Delivery Room Air Room Air Room Air Room Air 05/26/17 05/27/17 23:28 08:00 Temp 97.8 97.8 Pulse 67 Resp 16 B/P (MAP) 124/73 (90) Pulse Ox 100 O2 Delivery Room Air Room Air Intake and Output 05/26/17 05/26/17 05/27/17 14:59 22:59 06:59 Intake Total 250 ml 500 ml 200 ml Output Total 750 ml Balance 250 ml 500 ml -550 ml Images MRI brain: FINDINGS: 1.8 x 2.9 cm extra-axial mass in the right middle cranial fossa was calcified on CT and has imaging characteristics most suggestive of meningioma. There is FLAIR hyperintensity confluently throughout the supratentorial white matter, greater on the right. This could represent a combination of posttreatment change (given history of radiation therapy), edema, and small vessel ischemic disease. Finding appears similar to prior. Minimal probable small vessel ischemic disease is noted in the alfreda. There is midline shift associated with the mass, 3 mm. There is some mass effect on the right lateral ventricle. There is prominence of the ventricles and sulci. There is no acute intracranial hemorrhage or extra-axial fluid collection. There is no restricted diffusion in a pattern to suggest acute or subacute infarct. The decreased attenuation noted on prior CT again may be related to posttreatment change and small vessel ischemic disease. The intracranial flow voids are preserved. Cervicomedullary junction is unremarkable. There is minimal frontal and ethmoid mucosal thickening. Nonspecific fluid in the optic sheaths can be a finding of elevated intracranial pressures. Oblique coronal imaging through the temporal lobes demonstrates asymmetric FLAIR hyperintensity in the right temporal lobe when compared to the left, again this may be combination of edema, posttreatment change, and small vessel ischemic disease. There is no evidence of mesial temporal sclerosis. IMPRESSION: 1. Extra-axial right middle cranial fossa mass may represent meningioma. Stability is documented back to the oldest available comparison study of February 23, 2017. Comparison to any older exams may be of benefit. 2. Confluent FLAIR hyperintensity in the supratentorial white matter, greater on the right, could represent a combination of edema, posttreatment change, and small vessel ischemic disease. 3. There is no evidence of an acute or subacute infarct. JESSICA HODGES MD May 27, 2017 10:53
[2017-05-27 11:00] VITALS: BP 143/68
[2017-05-27] MEDS: ENOXAPARIN 40 MG/0.4 ML SYRINGE. SQ SCH (12:11)
[2017-05-27 19:56] VITALS: BP 131/86
[2017-05-27] MEDS: ATORVASTATIN CALCIUM 20 MG TABLET PO SCH (20:44)
[2017-05-27] MEDS: TAMSULOSIN 0.4 MG CAP.ER.24H. PO SCH (21:00)
[2017-05-28 03:21] VITALS: BP_SYST 119; BP_SYST 146; BP_DIAS 100; BP_DIAS 64
[2017-05-28 07:00] VITALS: BP 124/79
[2017-05-28] MEDS: FERROUS SULFATE 325 MG TABLET. PO SCH (08:00)
[2017-05-28] MEDS: LOSARTAN POTASSIUM 50 MG TABLET. PO SCH (09:02)
[2017-05-28] MEDS: ASPIRIN CHEWABLE 81 MG TABLET. PO SCH (09:02)
[2017-05-28] MEDS: FLUoxetine HCL 20 MG CAPSULE PO SCH (09:03)
[2017-05-28] MEDS: AMOXICILLIN/K CLAV 875/125MG TABLET. PO SCH (09:04)
[2017-05-28] MEDS: METOPROLOL TART IMMED RELEASE 25 MG TABLET. PO SCH (09:04)
[2017-05-28] MEDS: levETIRAcetam 250 MG TABLET PO SCH (09:04)
[2017-05-28] MEDS: FAMOTIDINE 20 MG TABLET. PO SCH (09:04)
[2017-05-28] MEDS: DEXAMETHASONE 4 MG TABLET PO SCH (09:04)
[2017-05-28] MEDS: LACTOBACILLUS RHAMNOSUS GG 1 CAPSULE. PO SCH (09:04)
--- NOTE | 2017-05-28 09:06 | PDOC ---
GENERAL General: see discharge summary. Problems: VITAL SIGNS Vital Signs: Vital Signs Date Time Temp Pulse Resp B/P (MAP) Pulse Ox O2 Delivery O2 Flow Rate FiO2 05/28/17 09:04 73 124/79 05/28/17 07:00 97.3 17 97 Room Air 97.3 I & O I & O Intake and Output 05/28/17 07:00 Intake Total 600 ml Balance 600 ml Intake Oral 600 ml # Voids 4 ALLERGIES Allergies: Allergies Coded Allergies Type Severity Reaction Last Updated Verified codeine Allergy Intermediate RASH, ITCH 05/10/15 Yes MEDS Medications: Current Medications Medications (Trade) Dose Ordered Sig/Fanny Start Time Stop Time Status Last Admin Dose Admin Acetaminophen (Acetaminophen Supp) 650 mg PRN Q4HRS PRN 05/25/17 12:45 Acetaminophen (Tylenol) 650 mg PRN Q6HRS PRN 05/25/17 12:45 Acetaminophen/ Hydrocodone Bitart (Lortab 7.5/325) 1 tab PRN Q4HRS PRN 05/25/17 15:15 Albuterol Sulfate (Ventolin Neb Soln) 3 mg PRN Q4HRS PRN 05/25/17 15:15 Amoxicillin/ Clavulanate Potassium (Augmentin 875/ 125mg) 1 tab BID 05/26/17 21:00 05/28/17 09:04 1 TAB Aspirin (Children'S Aspirin) 81 mg DAILYWBKFT 05/25/17 13:00 05/28/17 09:02 81 MG Aspirin (Ecotrin) 81 mg DAILY 05/25/17 17:00 05/26/17 09:19 DC Atorvastatin Calcium (Lipitor) 20 mg HS 05/25/17 21:00 05/27/17 20:44 20 MG Dexamethasone (Decadron) 8 mg DAILY 05/25/17 17:00 05/28/17 09:04 8 MG Dextrose (Dextrose 50%-Water Syringe) 12.5 gm PRN Q15MIN PRN 05/26/17 09:15 Enoxaparin Sodium (Lovenox 40mg Syringe) 40 mg Q24H 05/26/17 17:00 Famotidine (Pepcid) 20 mg BID 05/25/17 21:00 05/28/17 09:04 20 MG Ferrous Sulfate (Feosol) 325 mg BIDWMEALS 05/25/17 17:00 Fluoxetine HCl (PROzac) 20 mg DAILY 05/25/17 17:00 05/28/17 09:03 20 MG Info (Do NOT chart on this placeholder) 1 each PRN DAILY PRN 05/25/17 03:30 Cancel Lactobacillus Rhamnosus (Culturelle) 1 cap BID 05/26/17 10:00 05/28/17 09:04 1 CAP Levetiracetam (Keppra) 750 mg BID 05/26/17 21:00 05/28/17 09:04 750 MG Losartan Potassium (Cozaar) 50 mg DAILY 05/25/17 17:00 05/28/17 09:02 50 MG Metoprolol Tartrate (Lopressor) 25 mg BID 05/25/17 21:00 05/28/17 09:04 25 MG Morphine Sulfate 2 mg PRN Q2HR PRN 05/24/17 20:30 05/25/17 20:29 DC Ondansetron HCl (Zofran) 4 mg PRN Q8HRS PRN 05/24/17 20:30 05/25/17 20:29 DC Piperacillin Sod/ Tazobactam Sod (Zosyn) 3.375 gm Q6HRS 05/25/17 16:30 05/26/17 09:31 DC 05/26/17 06:06 3.375 GM Piperacillin Sod/ Tazobactam Sod 2.25 gm/Dextrose 50 ml @ 100 mls/hr 1X ONCE 05/25/17 15:15 05/26/17 09:31 DC Piperacillin Sod/ Tazobactam Sod 4.5 gm/Dextrose 100 ml @ 200 mls/hr 1X ONCE 05/24/17 20:30 05/24/17 20:30 DC Pneumococcal Polyvalent Vaccine (Do NOT chart on this placeholder) 1 each PRN DAILY PRN 05/25/17 03:30 Cancel Sodium Chloride 1,000 ml @ 150 mls/hr Q6H40M 05/24/17 20:24 05/25/17 20:23 DC 05/25/17 14:43 150 MLS/HR Tamsulosin HCl (Flomax) 0.4 mg HS 05/25/17 21:00 05/27/17 21:00 0.4 MG Vancomycin HCl 1.75 gm/Sodium Chloride 500 ml @ 250 mls/hr 1X ONCE 05/24/17 20:30 05/24/17 20:30 DC Vancomycin HCl 2 gm/Dextrose/ Sodium Chloride 500 ml @ 250 mls/hr 1X ONCE 05/24/17 21:00 05/24/17 22:59 DC 05/24/17 20:52 250 MLS/HR LAB Lab: Laboratory Tests Test 05/27/17 11:08 05/27/17 16:01 05/27/17 21:01 05/28/17 08:11 Glucose (Fingerstick) 77 mg/dL (70-99) 97 mg/dL (70-99) 89 mg/dL (70-99) 73 mg/dL (70-99) ELMA GUERRA MD May 28, 2017 09:06
--- NOTE | 2017-05-28 09:12 | CARD ---
MR#: [id number] Account#: Date of Study: 05/27/2017 Ordering Physician: Fiona: Mike FELIPE APPROVED REPORT EXAM: Two-dimensional and M-mode echocardiogram with Doppler and color Doppler. Other Information Quality : AverageHR: 68bpm Technically limited study due to body habitus. INDICATION Non STEMI 2D DIMENSIONS RVDd2.7 (2.9-3.5cm)Left Atrium(2D)2.5 (1.6-4.0cm) IVSd1.1 (0.7-1.1cm)Aortic Root(2D)3.3 (2.0-3.7cm) LVDd4.7 (3.9-5.9cm)LVOT Diameter2.4 (1.8-2.4cm) PWd1.1 (0.7-1.1cm)LVDs3.7 (2.5-4.0cm) FS (%) 22.4 %SV46.6 ml LVEF(%)50.0 (>50%) Aortic Valve AoV Peak Lit.121.0cm/sAoV VTI22.9cm AO Peak GR.5.9mmHgLVOT Peak Lit.69.4cm/s AO Mean GR.3mmHgAVA (VMAX)1.90cm2 Mitral Valve MV E Ysgjujyh36.8cm/sMV E Peak Gr.25mmHg MV DECEL [id number] A Dddfsglv74.3cm/s MV [id number] Ratio0.7 MVA (PHT)1.63cm2 Pulmonary Valve PV Peak Vfdytgjj50.9cm/sPV Peak Grad.2mmHg LEFT VENTRICLE The left ventricle is normal size. There is borderline concentric left ventricular hypertrophy. Left ventricle systolic function is low normal. The Ejection Fraction is 50-55%. There is normal LV segmen mandy wall motion. Transmitral Doppler flow pattern is abnormal. RIGHT VENTRICLE The right ventricle is normal size. The right ventricular systolic function is normal. ATRIA The left atrium size is normal. The right atrium size is normal. The interatrial septum is intact wit h no evidence for an atrial septal defect or patent foramen ovale as noted on 2-D or Doppler imaging. Bubble study was reportedly refused. AORTIC VALVE The aortic valve is moderately thickened. Doppler and Color Flow revealed trace aortic regurgitation. There is no significant aortic valvular stenosis. There is no aortic valvular vegetation. MITRAL VALVE The mitral valve is mildly thickened. There is no evidence of mitral valve prolapse. There is no mitr al valve stenosis. Doppler and Color Flow revealed no mitral valve regurgitation noted. TRICUSPID VALVE The tricuspid valve is normal in structure and function. Doppler and Color Flow revealed trace tricus pid valve regurgitation. There is no tricuspid valve prolapse or vegetation. There is no tricuspid va lve stenosis. PULMONIC VALVE Pulmonic valve was not visualized well. Doppler and Color Flow revealed no pulmonic valvular regurgit ation. There is no pulmonic valvular stenosis. GREAT VESSELS The aortic root is normal in size. The IVC is normal in size and collapses >50% with inspiration. PERICARDIAL EFFUSION There is no pleural effusion. There is no evidence of significant pericardial effusion. Critical Notification Critical Value: No <Conclusion> The left ventricle is normal size. Left ventricle systolic function is low normal. The Ejection Fraction is 50-55%. There is borderline concentric left ventricular hypertrophy. The interatrial septum is intact with no evidence for an atrial septal defect or patent foramen ovale as noted on 2-D or Doppler imaging. Bubble study was reportedly refused. There is no significant aortic valvular stenosis. Doppler and Color Flow revealed trace aortic regurgitation. Doppler and Color Flow revealed no mitral valve regurgitation noted. Doppler and Color Flow revealed trace tricuspid valve regurgitation. Signed by : Demar Kaur MD Electronically Approved : 05/27/2017 14:53:24
[2017-05-28 11:00] VITALS: BP 138/69
--- NOTE | 2017-05-28 15:14 | PDOC ---
PROGRESS NOTES Assessment Problems Medical Problems: (1) Altered mental status Status: Acute (2) Lactic acidosis Status: Acute (3) Leukocytosis Status: Acute Altered mental status, metabolic encephalopathy Lung cancer with metastases to the brain in the past MRI brain negative for any acute disease, shows post radiation changes Also shows possible meningioma not requiring treatment Dementia Patient refusing medications Plan No additional neurological studies for treatment required Okay to return to residential Subjective No complaints Objective Vital Signs Date Time Temp Pulse Resp B/P (MAP) Pulse Ox O2 Delivery O2 Flow Rate FiO2 05/28/17 11:00 98.3 62 20 138/69 (92) 96 Room Air 98.3 Intake and Output 05/28/17 07:00 Intake Total 600 ml Balance 600 ml Intake Oral 600 ml # Voids 4 PHYSICAL EXAM Alert. Oriented only to person PERRL. EOMI. CN: no focal findings. Muscle tone: normal. Muscle strength: 4/5 DTR: 1+ Plantar reflex: flexor Gait: not examined in bed. Sensory exam: no abnormal findings. No cerebellar signs elicited. Review of Relevant I have reviewed the following items tereza (where applicable) has been applied. Labs Laboratory Tests Test 05/26/17 20:49 05/27/17 11:08 05/27/17 16:01 05/27/17 21:01 Glucose (Fingerstick) 89 mg/dL (70-99) 77 mg/dL (70-99) 97 mg/dL (70-99) 89 mg/dL (70-99) Test 05/28/17 08:11 05/28/17 10:59 Glucose (Fingerstick) 73 mg/dL (70-99) 106 mg/dL (70-99) Laboratory Tests Test 05/27/17 16:01 05/27/17 21:01 05/28/17 08:11 05/28/17 10:59 Glucose (Fingerstick) 97 mg/dL (70-99) 89 mg/dL (70-99) 73 mg/dL (70-99) 106 mg/dL (70-99) Microbiology 05/24/17 Blood Culture - Preliminary, Resulted NO GROWTH AFTER 3 DAYS 05/24/17 Urine Culture - Final, Complete 05/24/17 Urine Culture Result 1 (DAYNA) - Final, Complete Medications Current Medications Sodium Chloride 500 ml @ 500 mls/hr 1X ONCE IV Last administered on 18:55; Start 05/24/17 at 18:15; Stop 05/24/17 at 19:14; Status DC Sodium Chloride 1,000 ml @ 1,000 mls/hr 1X ONCE IV Last administered on 05/24 20:51; Start 05/24/17 at 21:00; Stop 05/24/17 at 21:59; Status DC Vancomycin HCl 1.75 gm/Sodium Chloride 500 ml @ 250 mls/hr 1X ONCE IV ; Start 05/24/17 at 20:30; Stop 05/24/17 at 20:30; Status DC Piperacillin Sod/ Tazobactam Sod 4.5 gm/Dextrose 100 ml @ 200 mls/hr 1X ONCE IV ; Start 05/24/17 at 20:30; Stop 05/24/17 at 20:30; Status DC Piperacillin Sod/ Tazobactam Sod (Zosyn) 4.5 gm 1X ONCE IVP Last administered on 05/24/17 20:51; Start 05/24/17 at 21:00; Stop 05/24/17 at 21:01; Status DC Ondansetron HCl (Zofran) 4 mg PRN Q8HRS PRN IV NAUSEA/VOMITING; Start at 20:30; Stop 05/25/17 at 20:29; Status DC Morphine Sulfate 2 mg PRN Q2HR PRN IV PAIN; Start 05/24/17 at 20:30; Stop at 20:29; Status DC Sodium Chloride 1,000 ml @ 150 mls/hr Q6H40M IV Last administered on 14:43; Start 05/24/17 at 20:24; Stop 05/25/17 at 20:23; Status DC Acetaminophen (Tylenol) 650 mg PRN Q4HRS PRN PO FEVER; Start 05/24/17 at 20:30 ; Stop 05/25/17 at 20:29; Status DC Vancomycin HCl 2 gm/Dextrose/ Sodium Chloride 500 ml @ 250 mls/hr 1X ONCE IV Last administered on 05/24/17 20:52; Start 05/24/17 at 21:00; Stop 05/24/17 at 22:59; Status DC Info (Do NOT chart on this placeholder) 1 each PRN DAILY PRN [facility] UNABLE TO RESPOND; Start 05/25/17 at 03:30; Status Cancel Pneumococcal Polyvalent Vaccine (Do NOT chart on this placeholder) 1 each PRN DAILY PRN UNABLE TO RESPOND; Start 05/25/17 at 03:30; Status Cancel Acetaminophen (Tylenol) 650 mg PRN Q6HRS PRN PO TEMP > 100.4F; Start 05/25/17 at 12:45 Acetaminophen (Acetaminophen Supp) 650 mg PRN Q4HRS PRN [place] TEMP > 100.4F; Start 05/25/17 at 12:45 Aspirin (Children'S Aspirin) 81 mg DAILYWBKFT PO Last administered on 09:02; Start 05/25/17 at 13:00 Aspirin (Ecotrin) 81 mg DAILY PO ; Start 05/25/17 at 17:00; Stop 05/26/17 at 09:19; Status DC Atorvastatin Calcium (Lipitor) 20 mg HS PO Last administered on 05/27/17 20: 44; Start 05/25/17 at 21:00 Dexamethasone (Decadron) 8 mg DAILY PO Last administered on 05/28/17 09:04; Start 05/25/17 at 17:00 Famotidine (Pepcid) 20 mg BID PO Last administered on 05/28/17 09:04; Start 05/25/17 at 21:00 Ferrous Sulfate (Feosol) 325 mg BIDWMEALS PO ; Start 05/25/17 at 17:00 Fluoxetine HCl (PROzac) 20 mg DAILY PO Last administered on 05/28/17 09:03; Start 05/25/17 at 17:00 Acetaminophen/ Hydrocodone Bitart (Lortab 7.5/325) 1 tab PRN Q4HRS PRN PO pain ; Start 05/25/17 at 15:15 Albuterol Sulfate (Ventolin Neb Soln) 3 mg PRN Q4HRS PRN NEB WHEEZING; Start 05/25/17 at 15:15 Levetiracetam (Keppra) 750 mg BID PO Last administered on 05/26/17 09:37; Start 05/25/17 at 21:00; Stop 05/26/17 at 14:48; Status DC Losartan Potassium (Cozaar) 50 mg DAILY PO Last administered on 05/28/17 09: 02; Start 05/25/17 at 17:00 Metoprolol Tartrate (Lopressor) 25 mg BID PO Last administered on 05/28/17 09 :04; Start 05/25/17 at 21:00 Tamsulosin HCl (Flomax) 0.4 mg HS PO Last administered on 05/27/17 21:00; Start 05/25/17 at 21:00 Piperacillin Sod/ Tazobactam Sod 2.25 gm/Dextrose 50 ml @ 100 mls/hr 1X ONCE IV ; Start 05/25/17 at 15:15; Stop 05/26/17 at 09:31; Status DC Enoxaparin Sodium (Lovenox 40mg Syringe) 30 mg Q24H SQ ; Start 05/25/17 at 17: 00; Stop 05/26/17 at 14:45; Status DC Piperacillin Sod/ Tazobactam Sod (Zosyn) 3.375 gm Q6HRS IVP Last administered on 05/26/17 06:06; Start 05/25/17 at 16:30; Stop 05/26/17 at 09:31; Status DC Dextrose (Dextrose 50%-Water Syringe) 12.5 gm PRN Q15MIN PRN IV SEE COMMENTS; Start 05/26/17 at 09:15 Amoxicillin/ Clavulanate Potassium (Augmentin 875/ 125mg) 1 tab BID PO Last administered on 05/28/17 09:04; Start 05/26/17 at 21:00 Lactobacillus Rhamnosus (Culturelle) 1 cap BID PO Last administered on 09:04; Start 05/26/17 at 10:00 Enoxaparin Sodium (Lovenox 40mg Syringe) 40 mg Q24H SQ ; Start 05/26/17 at 17: 00 Levetiracetam (Keppra) 750 mg BID PO Last administered on 05/28/17 09:04; Start 05/26/17 at 21:00 Active Scripts Active Reported Metoprolol Tartrate 25 Mg Tablet 25 Mg PO BID Losartan Potassium 50 Mg Tablet 50 Mg PO DAILY Linzess (Linaclotide) 72 Mcg Capsule 72 Mcg PO DAILY Ferrous Sulfate 325 Mg Tablet 325 Mg PO BID Duoneb 0.5-3(2.5) Mg/3 Ml (Albuterol/Ipratropium) 3 Ml Ampul.neb 3 Ml NEB Q4HRS PRN Loratadine 10 Mg Tablet 10 Mg PO DAILY Atorvastatin Calcium 20 Mg Tablet 20 Mg PO HS Aspir 81 (Aspirin) 81 Mg Tablet.dr 81 Mg PO DAILY Zofran (Ondansetron Hcl) 4 Mg Tablet 1 Tab PO PRN Q6-8HRS Prozac (Fluoxetine Hcl) 20 Mg Capsule 20 Mg PO DAILY Metformin Hcl 500 Mg Tablet 500 Mg PO BIDWMEALS Keppra (Levetiracetam) 500 Mg Tablet 750 Mg PO BID Famotidine 20 Mg Tablet 20 Mg PO BID Dexamethasone 4 Mg Tablet 2 Tab PO DAILY Tamsulosin Hcl 0.4 Mg Cap.er.24h 0.4 Mg PO HS Hydrocodone-Apap 7.5-325 (Hydrocodone Bit/Acetaminophen) 1 Each Tablet 1 Each PO EVERY 4 HOURS Fish Oil 1,200 Mg Softgel ([place]-3 Fatty Acids/Fish Oil) 1 Each Capsule 1 Each PO DAILY Vitals/I & O Vital Sign - Last 24 Hours 05/27/17 05/27/17 05/27/17 05/28/17 19:45 19:56 20:45 03:21 Temp 98.3 98.1 98.3 98.1 Pulse 63 63 59 Resp 20 20 B/P (MAP) 131/86 (101) 131/86 119/64 (82) Pulse Ox 100 97 O2 Delivery Room Air Room Air Room Air 05/28/17 05/28/17 05/28/17 05/28/17 07:00 08:00 09:02 09:04 Temp 97.3 97.3 Pulse 73 73 73 Resp 17 B/P (MAP) 124/79 (94) 124/79 124/79 Pulse Ox 97 O2 Delivery Room Air Room Air 05/28/17 11:00 Temp 98.3 98.3 Pulse 62 Resp 20 B/P (MAP) 138/69 (92) Pulse Ox 96 O2 Delivery Room Air Intake and Output 05/27/17 05/27/17 05/28/17 15:00 23:00 07:00 Intake Total 200 ml 400 ml Balance 200 ml 400 ml JESSICA HODGES MD May 28, 2017 15:14
== END 2017-05-28 15:22 | DRG 871 ==
LOC: ER 17:43 → 6 SOUTH 20:22 → UNDOADMIN 20:22 → 6 SOUTH 20:39
PROVIDERS: ADMIT Family Medicine; ATTEND Family Medicine
DX: A41.9 Sepsis, unspecified organism (principal); G93.41 Metabolic encephalopathy; I63.511 Cerebral infarction due to unspecified occlusion or stenosis of right middle cerebral artery; C79.31 Secondary malignant neoplasm of brain; E11.22 Type 2 diabetes mellitus with diabetic chronic kidney disease; I13.0 Hypertensive heart and chronic kidney disease with heart failure and stage 1 through stage 4 chronic kidney disease, or unspecified chronic kidney disease; E27.40 Unspecified adrenocortical insufficiency; I50.32 Chronic diastolic (congestive) heart failure; C34.90 Malignant neoplasm of unspecified part of unspecified bronchus or lung; E87.1 Hypo-osmolality and hyponatremia; D32.9 Benign neoplasm of meninges, unspecified; E78.00 Pure hypercholesterolemia, unspecified; E78.5 Hyperlipidemia, unspecified; F03.90 Unspecified dementia, unspecified severity, without behavioral disturbance, psychotic disturbance, mood disturbance, and anxiety; K21.9 Gastro-esophageal reflux disease without esophagitis; N18.9 Chronic kidney disease, unspecified; R32 Unspecified urinary incontinence; R56.9 Unspecified convulsions; Z66 Do not resuscitate; F32.9 Major depressive disorder, single episode, unspecified; Z82.49 Family history of ischemic heart disease and other diseases of the circulatory system; Z85.118 Personal history of other malignant neoplasm of bronchus and lung; Z85.841 Personal history of malignant neoplasm of brain; Z86.010 Personal history of colon polyps; I25.2 Old myocardial infarction; Z92.21 Personal history of antineoplastic chemotherapy; Z92.3 Personal history of irradiation; Z88.5 Allergy status to narcotic agent
CPT/HCPCS: 36415; 36600; 51702; 70450; 70551; 71010; 80048; 80053; 81001; 82805; 82962; 83605; 85007; 85025; 87040; 87086; 87641; 93306; 93880; 96361; 96365; 96375; J2543; J3370; J7030; J7040; J7042; J8540; 99285-25

== ENCOUNTER 2017-08-19 15:51 | Emergency (ER) | payer MEDICARE | END 2017-08-19 18:31 | disposition home or self-care (01) | LOC: ER 15:51 | DX: F03.90 Unspecified dementia, unspecified severity, without behavioral disturbance, psychotic disturbance, mood disturbance, and anxiety (principal); E11.9 Type 2 diabetes mellitus without complications; E78.00 Pure hypercholesterolemia, unspecified; K21.9 Gastro-esophageal reflux disease without esophagitis; Z85.841 Personal history of malignant neoplasm of brain; Z88.5 Allergy status to narcotic agent; I13.0 Hypertensive heart and chronic kidney disease with heart failure and stage 1 through stage 4 chronic kidney disease, or unspecified chronic kidney disease; N18.9 Chronic kidney disease, unspecified; I50.9 Heart failure, unspecified; I25.2 Old myocardial infarction; W18.39XA Other fall on same level, initial encounter; Y93.89 Activity, other specified; Y99.8 Other external cause status; Y92.89 Other specified places as the place of occurrence of the external cause | CPT/HCPCS: 70450; 72125; 99284-25 ==